=== PATIENT | female | born 1955 | race Caucasian/White ===

== ENCOUNTER → 2019-11-17 12:04 | Outpatient (CLI) | payer OTHER, SELFPAY ==
--- NOTE | ~2019-11-17 | MM_ITS ---
EXAMINATION: MM screening [facility] BI w john HISTORY: Screening mammogram TECHNIQUE: Craniocaudal and mediolateral oblique 3-D tomosynthesis images were obtained and synthetic 2-D images were generated. CAD analysis was submitted and interpreted. COMPARISON: No prior mammogram is available for comparison at this institution. BREAST PARENCHYMAL COMPOSITION: There are scattered areas of fibroglandular density. FINDINGS: There is no evidence of suspicious mass, calcification, or architectural distortion to sugg est malignancy in either breast. There has been no suspicious interval change. IMPRESSION: 1. No mammographic evidence of malignancy. 2. Recommend routine screening mammography in one year. BI-RADS Category 1: Negative Reviewed, dictated and finalized at location A. 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
--- NOTE | ~2019-11-17 | DEXA_ITS ---
Bone Density Report Name: Mary Veronica Age: 64 Sex: Female Ethnicity: White Date of : 1955 Indication: postmenopausal; screening for osteoporosis; parental hip fracture; hysterectomy; rheumatoid arthritis; Referring Provider: KINA CHAO Study: Bone densitometry was performed. Exam Date: November 17, 2019 Accession number: [id number] Bone Density: Region BMD T-score Z-score Classification AP Spine (L1-L4) 1.016 -0.3 1.5 Normal Femoral Neck (Left) 0.843 -0.1 1.4 Normal Total Hip (Left) 1.024 0.7 1.9 Normal Femoral Neck (Right) 0.918 0.6 2.1 Normal Total Hip (Right) 1.017 0.6 1.8 Normal Total Hip Mean 1.021 0.7 1.9 Normal World Health Organization criteria for BMD impression classify patients as: Normal (T-score at or above -1.0), Osteopenia (T-score between -1.0 and -2.5), or Osteoporosis (T-score at or below -2.5). 10-year Fracture Risk: FRAX not reported because: All T-scores for Spine Total, Hip Total, Femoral Neck at or above -1.0 Previous Exams: Region Exam Age BMD T-score BMD Change BMD Change Date g/cm2 vs Baseline vs Previous AP Spine(L1-L4) 11/17/2019 64 1.016 -0.3 -0.023 -0.023 01/21/2006 50 1.040 -0.1 Total Hip(Left) 11/17/2019 64 1.024 0.7 -0.039 -0.039 01/21/2006 50 1.063 1.0 Total Hip(Right) 11/17/2019 64 1.017 0.6 -0.077 -0.077 01/21/2006 50 1.094 1.2 *Denotes significance at 95% confidence level, LSC for AP Spine = 0.022 g/cm2, LSC for Total Hip = 0.027 g/cm2 Clinical Information Provided by Patient: Parent has had a hip fracture Has rheumatoid arthritis Has the following medical conditions: Hysterectomy Patient maximum height was 65.0 Menopause Age: 33 Drinks caffeinated beverages Onset of menses at age 15 Number of children 2 Impression: The patient has normal bone mass. The patient has risk factors, including: parental hip fracture. No significant bone loss was observed. Discussion: BONE DENSITY IS ABOVE THE MINIMUM DESIRABLE LEVEL AT ALL SKELETAL SITES TESTED. This patient?s bone mineral density is above the minimum desirable level (T-score -1.0 or better) at all sites measured. The patient should follow a healthful lifestyle (good nutrition with adequate calcium and vitamin D, and appropriate weight-bearing exercise). Follow-Up: Consider repeating this study in 5 years or sooner if there is some new clinical indication. Re
== END ==
PROVIDERS: Visit Provider Obstetrics & Gynecology
DX: Z12.31 Encounter for screening mammogram for malignant neoplasm of breast (principal); Z78.0 Asymptomatic menopausal state
CPT/HCPCS: 77063; 77067; 77080

== ENCOUNTER → 2020-12-28 16:39 | Outpatient (CLI) | payer MEDICARE, OTHER, SELFPAY ==
--- NOTE | ~2020-12-28 | MM_ITS ---
EXAMINATION: MM screening [facility] BI w john HISTORY: Screening mammogram TECHNIQUE: Craniocaudal and mediolateral oblique 3-D tomosynthesis images were obtained and synthetic 2-D images were generated. CAD analysis was submitted and interpreted. COMPARISON: 11/17/2019, 02/06/2005 bilateral digital screening mammogram examinations BREAST PARENCHYMAL COMPOSITION: The breasts are almost entirely fatty. FINDINGS: History of bilateral breast reduction surgery in 2000. There is focal irregular non circums cribed density in the posterior outer right breast on the cc view. Diagnostic right mammogram is brunilda mmended, with ultrasound if required. Otherwise there is is no evidence of suspicious mass, calcification, or architectural distortion sugg est malignancy in either breast. There has been no other suspicious interval change. IMPRESSION: 1. New focal non circumscribed irregular density at the posterior outer right breast 2. Diagnostic right mammogram is recommended with ultrasound if required. BI-RADS Category 0: Incomplete: Needs additional imaging evaluation. Reviewed, dictated and finalized at location A. IMPRESSION: 1. New focal non circumscribed irregular density at the posterior outer right b reast 2. Diagnostic right mammogram is recommended with ultrasound if required. BI-RADS Category 0: Incomplete: Needs additional imaging evaluation.
== END ==
PROVIDERS: PCP Internal Medicine; Visit Provider Obstetrics & Gynecology
DX: Z12.31 Encounter for screening mammogram for malignant neoplasm of breast (principal); R92.8 Other abnormal and inconclusive findings on diagnostic imaging of breast
CPT/HCPCS: 77063; 77067

== ENCOUNTER → 2021-01-24 08:30 | Outpatient (CLI) | payer MEDICARE, OTHER, SELFPAY ==
--- NOTE | ~2021-01-24 | MMUS_ITS ---
EXAMINATION: MM diagnostic mammo unilat RT, US breast RT limited HISTORY: Follow-up right breast asymmetry TECHNIQUE: Additional 3-D tomosynthesis images of the right breast were performed and synthetic 2-D i mages were generated. CAD analysis was submitted and interpreted. High resolution Limited right breas t ultrasound was performed. COMPARISON: Comparison to multiple prior studies sequentially, with oldest reviewed study dated 11/17. BREAST PARENCHYMAL COMPOSITION: Breast composed of scattered areas of fibroglandular density. FINDINGS: MAMMOGRAPHIC FINDINGS: There are no suspicious masses, calcifications or architectural distortion in the right breast to sug gest malignancy. ULTRASOUND: Limited right breast ultrasound: Normal heterogeneous echotexture without focal solid or cystic mass. IMPRESSION: 1. No evidence for malignancy in the right breast. 2. Routine yearly screening mammogram and regular clinical breast examination are recommended. BI-RADS Category 1: Negative Reviewed, dictated and finalized at location A. IMPRESSION: 1. No evidence for malignancy in the right breast. 2. Routine yearly screening mammogram and regular clinical breast examination a re recommended. BI-RADS Category 1: Negative
== END ==
PROVIDERS: PCP Internal Medicine; Visit Provider Obstetrics & Gynecology
DX: R92.8 Other abnormal and inconclusive findings on diagnostic imaging of breast (principal)
CPT/HCPCS: 76642; 77065

== ENCOUNTER → 2022-01-22 07:12 | Outpatient (CLI) | payer MEDICARE, OTHER, SELFPAY ==
--- NOTE | ~2022-01-22 | MM_ITS ---
EXAMINATION: MM screening [facility] BI w john HISTORY: Screening mammogram TECHNIQUE: Craniocaudal and mediolateral oblique 3-D tomosynthesis images were obtained and synthetic 2-D images were generated. CAD analysis was submitted and interpreted. COMPARISON: 01/24/2021 diagnostic right mammogram and limited right breast ultrasound 12/28/2020, 11/17/2019 bilateral screening mammogram examinations BREAST PARENCHYMAL COMPOSITION: The breasts are almost entirely fatty. FINDINGS: There is no evidence of suspicious mass, calcification, or architectural distortion to sugg est malignancy in either breast. There has been no suspicious interval change. IMPRESSION: 1. No mammographic evidence of malignancy. 2. Recommend routine screening mammography in one year. BI-RADS Category 1: Negative Reviewed, dictated and finalized at location A.
== END ==
PROVIDERS: PCP Internal Medicine; Visit Provider Obstetrics & Gynecology Gynecology
DX: Z12.31 Encounter for screening mammogram for malignant neoplasm of breast (principal)
CPT/HCPCS: 77063; 77067

== ENCOUNTER → 2022-07-12 10:02 | Outpatient (CLI) | payer MEDICARE, OTHER, SELFPAY ==
--- NOTE | ~2022-07-12 | DEXA_ITS ---
Bone Density Report Name: ZEINA NASCIMENTO Age: 67 Sex: Female Ethnicity: White Date of : 1955 Indication: postmenopausal; screening for osteoporosis; parental hip fracture; height loss; prior fracture; hysterectomy; rheumatoid arthritis; Referring Provider: ALMA ROSA, CANDI Blandon Study: Bone densitometry was performed. Exam Date: July 12, 2022 Accession number: [id number] Bone Density: Region BMD T-score Z-score Classification AP Spine (L1-L4) 1.081 0.3 2.2 Normal Femoral Neck (Left) 0.874 0.2 1.9 Normal Total Hip (Left) 0.994 0.4 1.8 Normal Femoral Neck (Right) 0.870 0.2 1.8 Normal Total Hip (Right) 0.964 0.2 1.5 Normal Total Hip Mean 0.979 0.3 1.7 Normal World Health Organization criteria for BMD impression classify patients as: Normal (T-score at or above -1.0), Osteopenia (T-score between -1.0 and -2.5), or Osteoporosis (T-score at or below -2.5). 10-year Fracture Risk: FRAX not reported because: All T-scores for Spine Total, Hip Total, Femoral Neck at or above -1.0 Previous Exams: Region Exam Age BMD T-score BMD Change BMD Change Date g/cm2 vs Baseline vs Previous AP Spine(L1-L4) 07/12/2022 67 1.081 0.3 0.042 0.065* 11/17/2019 64 1.016 -0.3 -0.023 -0.023 01/21/2006 50 1.040 -0.1 Total Hip(Left) 07/12/2022 67 0.994 0.4 -0.068 -0.030* 11/17/2019 64 1.024 0.7 -0.039 -0.039 01/21/2006 50 1.063 1.0 Total Hip(Right) 07/12/2022 67 0.964 0.2 -0.129 -0.052* 11/17/2019 64 1.017 0.6 -0.077 -0.077 01/21/2006 50 1.094 1.2 *Denotes significance at 95% confidence level, LSC for AP Spine = 0.022 g/cm2, LSC for Total Hip = 0.027 g/cm2 Clinical Information Provided by Patient: Has had a low trauma fracture Parent has had a hip fracture Has rheumatoid arthritis Has the following medical conditions: Hysterectomy Patient maximum height was 65.0 Menopause Age: 33 No regular weight bearing exercise Does not regularly consume dairy products Drinks caffeinated beverages Onset of menses at age 15 Number of children 2 Impression: The patient has normal bone mass. The patient has risk factors, including: parental hip fracture, previous fracture. The BMD for the Total Hip(Left) decreased, changing by -0.030 since the last DXA exam. The BMD for the Total Hip(Right) decreased, changing by -0.052 since the last
== END ==
PROVIDERS: PCP Internal Medicine; Visit Provider Internal Medicine
DX: M81.0 Age-related osteoporosis without current pathological fracture (principal)
CPT/HCPCS: 77080

== ENCOUNTER → 2022-10-25 11:35 | Outpatient (CLI) | payer MEDICARE, OTHER, SELFPAY ==
--- NOTE | ~2022-10-25 | XR_ITS ---
EXAMINATION:XR_[id number]_CR DATE: 10/25/2022 12:55 INDICATION: Neck pain TECHNIQUE: AP, lateral, lateral swimmers and odontoid views of the cervical spine are provided. COMPARISON: None FINDINGS: There are 3 mm of anterolisthesis of C4 on C5. There is 1 mm of retrolisthesis of C5 on C6. The odontoid process is intact. No fracture is identified. The vertebral body heights are normal. Th ere is moderate loss of intervertebral disc space height at C5-6 and C6-7 and mild loss of disc space height at C4-5. There is multilevel moderate to severe facet and uncovertebral joint osteoarthritis. Prevertebral soft tissues are normal. Small degenerative osteophytes project from the anterior endpl ates of multiple vertebral bodies. IMPRESSION: 1. Moderate cervical spondylosis without acute findings. Reviewed, dictated and finalized at location B. [employer]
== END ==
PROVIDERS: PCP Internal Medicine; Visit Provider Internal Medicine Rheumatology
DX: M47.812 Spondylosis without myelopathy or radiculopathy, cervical region (principal)
CPT/HCPCS: 72040

== ENCOUNTER → 2023-02-28 13:45 | Outpatient (CLI) | payer MEDICARE, OTHER, SELFPAY ==
--- NOTE | ~2023-02-28 | MM_ITS ---
EXAMINATION: MM screening [facility] BI w john HISTORY: Screening TECHNIQUE: Craniocaudal and mediolateral oblique 3-D tomosynthesis images were obtained and synthetic 2-D images were generated. CAD analysis was submitted and interpreted. COMPARISON: Comparison to multiple prior studies sequentially, with oldest reviewed study dated 11/17. BREAST PARENCHYMAL COMPOSITION: There are scattered areas of fibroglandular density. FINDINGS: There is no evidence of suspicious mass, calcification, or architectural distortion to sugg est malignancy in either breast. There has been no suspicious interval change. IMPRESSION: 1. No mammographic evidence of malignancy. 2. Recommend routine screening mammography in one year. BI-RADS Category 1: Negative Reviewed, dictated and finalized at location A.
== END ==
PROVIDERS: PCP Internal Medicine; Visit Provider Internal Medicine
DX: Z12.31 Encounter for screening mammogram for malignant neoplasm of breast (principal)
CPT/HCPCS: 77063; 77067

== ENCOUNTER 2023-05-21 10:45 | Outpatient (CLI) | payer MEDICARE, OTHER, SELFPAY | END 2023-05-21 10:46 | disposition home or self-care (01) | PROVIDERS: PCP Internal Medicine; Visit Provider Student in an Organized Health Care Education/Training Program | DX: D64.9 Anemia, unspecified (principal) | CPT/HCPCS: 36415; 82728 ==

== ENCOUNTER → 2023-08-01 07:21 | Outpatient (CLI) | payer MEDICARE, OTHER, SELFPAY ==
--- NOTE | ~2023-08-01 | XR_ITS ---
EXAMINATION: XR hip RT min 2V DATE: 08/01/2023 07:55 INDICATION: Right hip pain TECHNIQUE: Two views of right hip were obtained. COMPARISON: None. FINDINGS: Bone alignment is normal. There is no fracture. There is mild osteoarthritis of the hip. Th e soft tissues are unremarkable. IMPRESSION: 1. Mild osteoarthritis without acute osseous abnormality. Reviewed, dictated and finalized at location B. 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
== END ==
DX: M16.11 Unilateral primary osteoarthritis, right hip (principal)
CPT/HCPCS: 73502

== ENCOUNTER 2023-09-12 02:04 | Day surgery (SDC) | payer MEDICARE, OTHER, SELFPAY ==
[2023-08-27 08:35] VITALS: BMI 39.0
--- NOTE | 2023-09-10 08:34 | SUR.PREOP ---
Patient called regarding upcoming procedure. Reviewed preop instructions, appointment times, and procedure prep.
--- NOTE | 2023-09-11 09:10 | WPDANESEPPF ---
Anes - Initial Pre Proc Eval Procedure: Operation Date: 09/12/23 11:30 Proposed Procedures p Colonoscopy - Keshav Nichols MD Date/Time: 09/11/23 09:10 Surgeon: Keshav Nichols MD Pre Op Diagnosis: history of colon polyps Patient Data Age: 68 Gender: F Height: 1.6 m Weight: 100 kg Allergies Allergy/AdvReac Type Severity Reaction Status Date / Time terbinafine Allergy Intermediate Rash Verified 09/12/23 10:40 griseofulvin Allergy Unknown Rash Verified 09/12/23 10:40 Sulfa (Sulfonamide Allergy Unknown unknown Verified 09/12/23 10:40 Antibiotics) Home Medications Medication Instructions Recorded Confirmed Type allopurinol 300 mg tablet 300 mg PO DAILY 05/31/21 09/12/23 History carboxymethyl 0.5 %-glycerin 1 1 drp EACH EYE QID 05/31/21 09/12/23 History %-polysorb 80 0.5 %-PF eye dropperette (Refresh Optive Jalil-3 (PF)) furosemide 40 mg tablet 40 mg PO DAILY PRN Edema 05/31/21 09/12/23 History hydrochlorothiazide 25 mg tablet 25 mg PO BID 05/31/21 09/12/23 History hydroxychloroquine 200 mg tablet 200 mg PO BID 05/31/21 09/12/23 History melatonin 10 mg capsule 10 mg PO QHS PRN Insomnia 05/31/21 09/12/23 History metoprolol tartrate 100 mg tablet 100 mg PO BID 05/31/21 09/12/23 History metronidazole 1 % topical gel 1 applic topical DAILY 05/31/21 09/12/23 History multivitamin 1 tablet PO DAILY 05/31/21 09/12/23 History omega-3 fatty acids 1,000 mg 1,000 mg PO BID 05/31/21 09/12/23 History capsule (Fish Oil Concentrate) potassium chloride 20 mEq 40 meq PO BID 05/31/21 09/12/23 History tablet,extended release betamethasone dipropionate 0.05 % 1 applic topical DAILY PRN Rash 03/13/22 09/12/23 History topical ointment ropinirole 4 mg tablet See Rx Instructions .Route 04/15/23 09/12/23 Rx .COMPLEX #90 tabs ropinirole 5 mg tablet See Rx Instructions .Route 04/15/23 09/12/23 Rx .COMPLEX #90 tabs folic acid 1 mg tablet 1 mg PO DAILY 05/21/23 09/12/23 History methotrexate sodium 2.5 mg tablet 15 mg PO WEEKLY 05/21/23 09/12/23 History pilocarpine HCl 5 mg tablet 5 mg PO TID 05/21/23 09/12/23 History pregabalin 75 mg capsule 75 mg PO QHS #30 caps 07/04/23 09/12/23 Rx Patient hx anesthesia problems: none Family hx anesthesia problems: none Results Review: All pre-operative results and documents have been reviewed as part of the pre-operative evaluation. [facility] Past Medical History Medical History Arthritis Gout Hypertension Migraine Rheumatoid arthritis Surgical History Surgical History H/O hysterectomy for benign disease Hx of appendectomy Hx of breast reduction, elective Hx of cholecystectomy Family History Family History Other Colon cancer Social History Social History Social History: never smoker Smoking status: Never smoker Alcohol intake: current Drinks per week: 2 Alcohol use details: occasionally Substance use: never Substance use type: does not use Lack of Transportation: No Lack of Food: Never True Current Housing: I Have Housing Concerned About Future Housing: No Difficulty Paying Gas/Electric Bills: No Difficulty Paying for Meds: No Currently Unemployed: No Education: Bachelor's Degree Difficulty w/ Childcare or Family Care: No Living arrangements: alone Occupation/Education: occupation Gender identity (if verbalized by the patient): Female Spiritual care concerns: No Anes - Eval Final PreProcedure Day of Procedure 09/11/23 09:10 Patient weight: obese Heart: regular rate and rhythm Lungs: clear to auscultation Airway: Mallampati scale class II Neurological: alert and oriented Last oral intake: >/= 8 hours ASA classification: III Emergent: no Anesthetic plan: proceed Anesthesia type and m
[2023-09-12 10:41] VITALS: BP 128/60; PULSE 69; RESP 18; TEMP 36.1; O2SAT 98; BMI 39.2
--- NOTE | 2023-09-12 10:42 | PM.HPGS ---
History of Present Illness History of Present Illness Consent: Risks, benefits, and alternatives have been discussed and questions answered. Patient agrees to proceed with procedure. Chief complaint: history of colon polyps Narrative: Mary Veronica is a 68 year old female Referred for colon cancer screening. She has history of polyps. Her last colonoscopy was 5 years ago. Review of Systems Review of Systems: All systems reviewed & are unremarkable except as noted in HPI and below PMFSH Past Medical History Medical History Arthritis Gout Hypertension Migraine Rheumatoid arthritis Surgical History Surgical History H/O hysterectomy for benign disease Hx of appendectomy Hx of breast reduction, elective Hx of cholecystectomy Family History Family History Other Colon cancer Social History Social History Social History: never smoker Smoking status: Never smoker Alcohol intake: current Drinks per week: 2 Alcohol use details: occasionally Substance use: never Substance use type: does not use Lack of Transportation: No Lack of Food: Never True Current Housing: I Have Housing Concerned About Future Housing: No Difficulty Paying Gas/Electric Bills: No Difficulty Paying for Meds: No Currently Unemployed: No Education: Bachelor's Degree Difficulty w/ Childcare or Family Care: No Living arrangements: alone Occupation/Education: occupation Gender identity (if verbalized by the patient): Female Spiritual care concerns: No Meds Home Medications and Allergies Home Medications Medication Instructions Recorded Confirmed Type allopurinol 300 mg tablet 300 mg PO DAILY 05/31/21 09/12/23 History carboxymethyl 0.5 %-glycerin 1 1 drp EACH EYE QID 05/31/21 09/12/23 History %-polysorb 80 0.5 %-PF eye dropperette (Refresh Optive Jalil-3 (PF)) furosemide 40 mg tablet 40 mg PO DAILY PRN Edema 05/31/21 09/12/23 History hydrochlorothiazide 25 mg tablet 25 mg PO BID 05/31/21 09/12/23 History hydroxychloroquine 200 mg tablet 200 mg PO BID 05/31/21 09/12/23 History melatonin 10 mg capsule 10 mg PO QHS PRN Insomnia 05/31/21 09/12/23 History metoprolol tartrate 100 mg tablet 100 mg PO BID 05/31/21 09/12/23 History metronidazole 1 % topical gel 1 applic topical DAILY 05/31/21 09/12/23 History multivitamin 1 tablet PO DAILY 05/31/21 09/12/23 History omega-3 fatty acids 1,000 mg 1,000 mg PO BID 05/31/21 09/12/23 History capsule (Fish Oil Concentrate) potassium chloride 20 mEq 40 meq PO BID 05/31/21 09/12/23 History tablet,extended release betamethasone dipropionate 0.05 % 1 applic topical DAILY PRN Rash 03/13/22 09/12/23 History topical ointment ropinirole 4 mg tablet See Rx Instructions .Route 04/15/23 09/12/23 Rx .COMPLEX #90 tabs ropinirole 5 mg tablet See Rx Instructions .Route 04/15/23 09/12/23 Rx .COMPLEX #90 tabs folic acid 1 mg tablet 1 mg PO DAILY 05/21/23 09/12/23 History methotrexate sodium 2.5 mg tablet 15 mg PO WEEKLY 05/21/23 09/12/23 History pilocarpine HCl 5 mg tablet 5 mg PO TID 05/21/23 09/12/23 History pregabalin 75 mg capsule 75 mg PO QHS #30 caps 07/04/23 09/12/23 Rx Allergies Allergy/AdvReac Type Severity Reaction Status Date / Time terbinafine Allergy Intermediate Rash Verified 09/12/23 10:40 griseofulvin Allergy Unknown Rash Verified 09/12/23 10:40 Sulfa (Sulfonamide Allergy Unknown unknown Verified 09/12/23 10:40 Antibiotics) Exam Resp: Auscultation: clear to auscultation bilaterally Cardio: Rate: regular rate Rhythm: regular rhythm GI: GI Palp: Yes Soft to palpation and No Tenderness to palpation present (GI) Assessment and Plan Assessment and plan (1) Colon cancer screening: Code(s): Z12.11 - [place]
[2023-09-12] MEDS: LACTATED RINGERS 1,000 ML 150 ML IV CONT (11:00)
[2023-09-12 11:35] VITALS: BP 101/53; PULSE 88; RESP 23; O2SAT 99
[2023-09-12 11:45] VITALS: BP 99/61; PULSE 101; RESP 20; O2SAT 100
[2023-09-12 11:55] VITALS: BP 140/75; PULSE 81; RESP 20; O2SAT 100
== END 2023-09-12 12:16 | disposition home or self-care (01) ==
PROVIDERS: PCP Internal Medicine; Visit Provider Internal Medicine Gastroenterology
PROC: 0DJD8ZZ Inspection of Lower Intestinal Tract, Via Natural or Artificial Opening Endoscopic (ICD-10-PCS; CPT 45378; principal; 2023-09-12 11:30)
DX: Z12.11 Encounter for screening for malignant neoplasm of colon (principal); D12.3 Benign neoplasm of transverse colon; I10 Essential (primary) hypertension; M06.9 Rheumatoid arthritis, unspecified; M10.9 Gout, unspecified; Z79.631 Long term (current) use of antimetabolite agent; E66.9 Obesity, unspecified; Z68.39 Body mass index [BMI] 39.0-39.9, adult
CPT/HCPCS: 45385; 88305; J2704; J7120

== ENCOUNTER 2024-09-02 17:06 | Emergency (ER) | payer MEDICARE, OTHER, SELFPAY ==
--- NOTE | ~2024-09-02 | CT_ITS ---
EXAMINATION: CT brain wo con DATE: 09/02/2024 20:03 INDICATION: Head injury. TECHNIQUE: Computed tomography (CT) of the head was performed without intravenous contrast. The mA wa s adjusted according to patient size. Iterative reconstruction technique was employed. The dose-lengt h product was 605.33 mGy-cm. COMPARISON: None FINDINGS: There is no intracranial hemorrhage, acute infarction, or abnormal intracranial mass lesion . There are scattered areas of low attenuation in the cerebral white matter, which is within normal l imits for the patient's age. The ventricles are normal in size. There is mild mucosal thickening in t he ethmoid sinuses. The mastoid air cells are normal. There are likely changes of ocular lens replace ment surgeries. IMPRESSION: 1. Normal aging brain. Reviewed, dictated and finalized at location A. T PLANNER IMPRESSION: 1. Normal aging brain.
--- NOTE | ~2024-09-02 | XR_ITS ---
EXAMINATION: XR pelvis 1-2V DATE: 09/02/2024 20:14 INDICATION: Fall. TECHNIQUE: An anteroposterior view of the pelvis was obtained. COMPARISON: Right hip radiographs 08/01/2023 FINDINGS: There is lumbar dextrocurvature and moderate spondylosis. No fracture. There is mild osteoa rthritis of the hips. IMPRESSION: 1. Mild osteoarthritis of the hips. Reviewed, dictated and finalized at location A. THERAPIST
--- NOTE | ~2024-09-02 | XR_ITS ---
EXAMINATION: XR knee RT 3V DATE: 09/02/2024 20:14 INDICATION: Fall. TECHNIQUE: 3 views of right knee were obtained. COMPARISON: None. FINDINGS: Bone alignment is normal. No fracture. There is moderate osteoarthritis of medial and later al compartments and mild osteoarthritis of patellofemoral compartment. No knee joint effusion. IMPRESSION: 1. Moderate right knee osteoarthritis. Reviewed, dictated and finalized at location A. [employer] SUPERVISOR
--- OUTSIDE RECORDS SUMMARY | 2024-09-02 17:09 | XMS_ITS | Data Portability ---
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 Plan of Treatment Reminders Order Date Submit Date Provider Last Modified By Organization Details Last Modified Time Details Appointments None recorded. Lab vitamin D, 25-hydrox y, total, serum 023 023 [id number] [facility], [address] [place], [address], 3 16:29:50 CBC w/ auto diff 023 023 [id number] [facility], [address] [place], [address], 3 16:29:49 CMP, serum or plasma 023 023 [facility], [address] [place], [address], 3 16:29:49 lipid panel, serum 023 023 [id number] [facility], [address] [place], [address], 3 16:29:50 cmp, whole blood + christa 023 023 [email or web address] [facility], [address] [place], [address], 3 16:29:50 T4, free, serum 023 023 [email or web address] [facility], [address] [place], [address], 3 16:29:50 TSH, serum or plasma 023 023 [facility], [address] [place], [address], 3 16:29:50 vitamin D, 25-hydrox y, total, serum [id number] [place] [address] - Outpatient Lab, [address] [place], [address], 3 17:48:50 CBC w/ auto diff 023 [facility] - Outpatient Lab, [address] [place], [address], 3 10:37:35 CMP, serum or plasma [facility] Outpatient Lab, [address] [place], [address], 3 11:06:38 lipid panel, serum [facility] Outpatient Lab, [address] [place], [address], 3 11:06:42 TSH, serum or plasma [facility] Outpatient Lab, [address] [place], [address], 3 10:59:59 T4, free, serum 023 [facility] Outpatient Lab, [address] [place], [address], 3 10:46:14 CBC w/ auto diff [facility] Outpatient Lab, [address] [place], [address], 4 12:00:16 CMP, serum or plasma [facility] Outpatient Lab, [address] [place], [address], 4 12:09:18 lipid panel, serum [facility] Outpatient Lab, [address] [place], [address], 4 12:09:23 TSH, serum or plasma [facility] Outpatient Lab, [address] [place], [address], 4 12:37:33 T4, free, serum [facility] Outpatient Lab, [address] [place], [address], 4 12:20:16 CBC w/ auto diff [id number] [place] [address] Outpatient Lab, [address] [place], [address], 4 16:52:03 CMP, serum or plasma [id number] [facility] Outpatient Lab, [address] [place], [address], 4 16:52:04 PTH (parathyr oid hormone), intact, serum or plasma [facility] Outpatient Lab, [address] [place], [address], 4 16:52:04 phosphoru s, serum or plasma [id number] [facility] [place] - Outpatient Lab, [address] [place], [address], 16:52:04 vitamin D, 25-hydrox y, total, serum [id number] [facility] [place] - Outpatient Lab, [address] [place], [address], 16:52:04 Referral None recorded. Procedures None recorded. Surgeries None recorded. Imaging None recorded. Medication Orders None recorded. Patient TargetsNo targets recorded. Patient Instructions Encounter Date Encounter Id Patient Instructions Last Modified By Organization Details Last Modified Time 12/18/2022 [id number] Follow-up hypertension-rheumato id arthritis -restless leg syndrome -cervical radicular radiculopathy- obesity. Clinically stable otherwise. Is in need of blood work consisting of CBC, CMP, lipid, thyroid and vitamin-D level. Not due for colonoscopy or bone density scan. Is due for mammogram. Will continue on current Rx and follow-up in six months Mammogram [email or web address] Not available 12/18/2022 10:59:46 06/25/2023 [id number] dementia rating scale-2* [email or web address] Not available 06/25/2023 11:04:20 alcohol misuse* [email or web address] Not available 06/25/2023 11:04:20 depression screening* [email or web address] Not avai jesse 06/25/2023 11:04:20 Timed Up and Go test (TUG)* [email or web address] Not available 06/25/2023 11:04:20 multi-dimensiona health assessment questionnaire* [email or web address] Not available 06/25/2023 11:04:20 Personalized a lt Plan and Screening Recommendations Advance Directives - Do you have one? Yes Advance Directives - Do we have your advance directive on file in your health record? Yes Primary Prevention/Interventi on (prevents or decreases the chance of common diseases from occurring) Smoking Risk: Non Smoker Alcohol Misuse Screening: Negative Weight: Appropriate Overweigh t continue your current weight loss efforts try to lose 5% of your body weight try to lose 10% of your body weight Physical activity: Nutrition: Good Average Fall Risk (screened today): Low Vaccines Pneumococcal: Ordered Recommended today Recommended today, but you have declined No further needed Influenza: Chronic Disease Risks Stroke: Low Risk Intermediate Risk I have no recommendations Activ e diagnosis, Continue current treatment plan Heart Attack: Low risk I have no recommendations Clogging of the Arteries: Low risk I have no recommendations Diabetes: Low Risk I have no recommendations Secondary Prevention/Interventi on (detects treatable diseases before they may cause symptoms, disability, or ) Breast Cancer Screening with mammogram: Cervical/Uterine/Ovar jagdish Cancer Screening: Osteoporosis Screening: Date Screening Last Performed: Colon Cancer Screening: Colonoscopy Date Screening Last Performed: __2018__ Eye Disease Screening: Dementia Risk: Low I have no recommendations Depression Screening: Negative [email or web address] Not available 06/25/2023 10:56:18 Adult health examination risk assessment stable. Follow-up for hypertension-GERD -rheumatoid arthritis -obesity all clinically stable. Will check blood work in the form of CBC, CMP, lipid, thyroid and vitamin-D level. Continue on current Rx up-to-date on immunizations. FDA recommendations of a influenza, RSV, COVID, pneumococcal immunizations strongly advised. Follow-up in six months Portions of the record may have been created with voice recognition software. Occasional wrong-word or ? [id number]-p-[id number]? substitutions may have occurred due to the inherent limitations of voice recognition software. Read the chart carefully and recognize, using context, where substitutions have occurred. [email or web address] Not available 06/25/2023 11:03:55 12/24/2023 [id number] Follow-up [id number] umatoid arthritis and obesity class two. All clinically stable at this juncture. Will check blood work consisting of CBC, CMP, lipid, thyroid. Continue on current medications. See no contraindications for upcoming hammer toe surgery with Dr. Tuttle. Follow-up in six months Next Appt: 6 Months Approximate Date: 06/21/2024 Portions of the record may have been created with voice recognition software. Occasional wrong-word or ? [id number]? substitutions may have occurred due to the inherent limitations of voice recognition software. Read the chart carefully and recognize, using context, where substitutions have occurred. [email or web address] Not available 12/24/2023 10:51:41 07/05/2024 [id number] dementia rating scale-2* Not available 07/05/2024 14:54:53 alcohol misuse* [email or web address] Not available 07/05/2024 14:54:53 depression screening* [email or web address] Not hardeep molina 07/05/2024 14:54:54 Timed Up and Go test (TUG)* [email or web address] Not available 07/05/2024 14:54:53 multi-dimensiona l health assessment questionnaire* [email or web address] Not available 07/05/2024 14:54:54 Personalized Hea lt Plan and Screening Recommendations Advance Directives - Do you have one? Yes Advance Directives - Do we have your advance directive on file in your health record? Yes Primary Prevention/Interventi on (prevents or decreases the chance of common diseases from occurring) Smoking Risk: Non Smoker Alcohol Misuse Screening: Negative Weight: Appropriate Overweigh t continue your current weight loss efforts try to lose 5% of your body weight try to lose 10% of your body weight Physical activity: Nutrition: Good Average Fall Risk (screened today): Low Vaccines Pneumococcal: Ordered Recommended today Recommended today, but you have declined No further needed Influenza: Ordered Recommended today Chronic Disease Risks Stroke: Low Risk Intermediate Risk I have no recommendations Activ e diagnosis, Continue current treatment plan Heart Attack: Low risk Intermediate Risk I have no recommendations Activ e diagnosis, Continue current treatment plan Clogging of the Arteries: Low risk I have no recommendations Diabetes: Low Risk I have no recommendations Secondary Prevention/Interventi on (detects treatable diseases before they may cause symptoms, disability, or ) Breast Cancer Screening with mammogram: Cervical/Uterine/Ovar jagdish Cancer Screening: Osteoporosis Screening: Date Screening Last Performed: Colon Cancer Screening: Colonoscopy Date Screening Last Performed: ____ Eye Disease Screening: Dementia Risk: Low I have no recommendations Depression Screening: Negative [email or web address] Not available 07/05/2024 14:45:55 [facility] risk assessment stable. Follow-up hypertension, GERD, rheumatoid arthritis, obesity and restless leg syndrome all clinically stable. Had blood work performed back in April which looked adequate although the creatinine was slightly elevated 1.14. Otherwise has been doing well. Will check blood work consisting of CBC, CMP, PTH level, phosphorus and vitamin-D. Continue on current Rx follow-up in four months. Follow Up: 4 Months Approximate Date: 11/02/2024 Portions of the record may have been created with voice recognition software. Occasional wrong-word or ? [id number]-j-[id number]? substitutions may have occurred due to the inherent limitations of voice recognition software. Read the chart carefully and recognize, using context, where substitutions have occurred. Not available 07/05/2024 14:54:28 Reason for Referral None Reported. Results Created Date Observation Date Name Description Value Unit Range Abnormal Flag Note LastModifiedBy Organization Detail LastModifiedTime 12/27/1912/26/2022 CBC/C OMPLE TE BLD COUNT W/DIF F white blood cells 5.0 x10'3 /uL 4.2-10 .8 Not Available [facility] (Lab) [address] [place], [address], 12/26/2022 12:01:01 12/27/19 23 12/26/2022 CBC/C OMPLE TE BLD COUNT W/DIF F red blood cells 4.31 x10'6 /uL 3.80-5 .20 Not Available [facility] (Lab) [address] [place], [address], 12/26/2022 12:01:01 12/27/19 23 12/26/2022 CBC/C OMPLE TE BLD COUNT W/DIF F hemoglobin 13.7 g/dL 12.0-1 5.6 Not Available [facility] (Lab) [address] [place], [address], 12/26/2022 12:01:01 12/27/19 23 12/26/2022 CBC/C OMPLE TE BLD COUNT W/DIF F hematocrit 41.1 % 35.7-4 5.7 Not Available [facility] (Lab) [address] [place], [address], 12/26/2022 12:01:01 12/27/19 23 12/26/2022 CBC/C OMPLE TE BLD COUNT W/DIF F mean red cell volume 95.4 fL 82.0-9 9.0 Not Available [facility] (Lab) [address] [place], [address], 12/26/2022 12:01:01 12/27/19 23 12/26/2022 CBC/C OMPLE TE BLD COUNT W/DIF F mean red cell hemoglobin 31.8 pg 27.0-3 3.0 Not Available [facility] (Lab) [address] [place], [address], 12/26/2022 12:01:01 12/27/19 23 12/26/2022 CBC/C OMPLE TE BLD COUNT W/DIF F mean RBC HGB concentratio n 33.3 g/dL 31.0-3 6.0 Not Available [facility] (Lab) [address] [place], [address], 12/26/2022 12:01:01 12/27/19 23 12/26/2022 CBC/C OMPLE TE BLD COUNT W/DIF F red cell distribution width 14.3 % 11.8-1 5.5 Not Available [facility] (Lab) [address] [place], [address], 12/26/2022 12:01:01 12/27/19 23 12/26/2022 CBC/C OMPLE TE BLD COUNT W/DIF F platelets 243 x10'3 /uL 150-40 0 Not Available [facility] (Lab) [address] [place], [address], 12/26/2022 12:01:01 12/27/19 23 12/26/2022 CBC/C OMPLE TE BLD COUNT W/DIF F mean platelet volume 10.1 fL 9.0-12 .4 Not Available [facility] (Lab) [address] [place], [address], 12/26/2022 12:01:01 12/27/19 23 12/26/2022 CBC/C OMPLE TE BLD COUNT W/DIF F neutrophils 55.6 % 39.0-7 2.0 Not Available [facility] (Lab) [address] [place], [address], 12/26/2022 12:01:01 12/27/19 23 12/26/2022 CBC/C OMPLE TE BLD COUNT W/DIF F lymphocytes 22.5 % 16.0-4 7.0 Not Available [facility] (Lab) [address] [place], [address], 12/26/2022 12:01:01 12/27/1912/26/2022 CBC/C OMPLE TE BLD COUNT W/DIF F monocytes 13.3 % 5.0-12 .0 high Not Available [facility] (Lab) [address] [place], [address], 12/26/2022 12:01:01 12/27/19 23 12/26/2022 CBC/C OMPLE TE BLD COUNT W/DIF F eosinophils 6.6 % 1.0-7. 0 Not Available [facility] (Lab) [address] [place], [address], 12/26/2022 12:01:01 12/27/1912/26/2022 CBC/C OMPLE TE BLD COUNT W/DIF F basophils 1.6 % 0.0-2. 0 Not Available [facility] (Lab) [address] [place], [address], 12/26/2022 12:01:01 12/27/1912/26/2022 CBC/C OMPLE TE BLD COUNT W/DIF F immature granulocytes 0.4 % 0.00-0 .50 Not Available [facility] (Lab) [address] [place], [address], 12/26/2022 12:01:01 12/27/19 23 12/26/2022 CBC/C OMPLE TE BLD COUNT W/DIF F neutrophils, absolute count 2.79 x10'3 /uL 1.5-8. 0 Not Available [facility] (Lab) [address] [place], [address], 12/26/2022 12:01:01 12/27/19 23 12/26/2022 CBC/C OMPLE TE BLD COUNT W/DIF F lymphocytes, absolute count 1.13 x10'3 /uL 1.07-3 .43 Not Available [facility] (Lab) [address] [place], [address], 12/26/2022 12:01:01 12/27/19 23 12/26/2022 CBC/C OMPLE TE BLD COUNT W/DIF F monocytes, absolute count 0.67 x10'3 /uL 0.29-0 .99 Not Available [facility] (Lab) [address] [place], [address], 12/26/2022 12:01:01 12/27/19 23 12/26/2022 CBC/C OMPLE TE BLD COUNT W/DIF F eosinophils, absolute count 0.33 x10'3 /uL 0.02-0 .53 Not Available [facility] (Lab) [address] [place], [address], 12/26/2022 12:01:01 12/27/19 23 12/26/2022 CBC/C OMPLE TE BLD COUNT W/DIF F basophils, absolute count 0.08 x10'3 /uL 0.01-0 .08 Not Available [facility] (Lab) [address] [place], [address], 12/26/2022 12:01:01 12/27/19 23 12/26/2022 CBC/C OMPLE TE BLD COUNT W/DIF F immature granulocytes ,absolute 0.02 x10'3 /uL 0.00-0 .05 Not Available [facility] (Lab) [address] [place], [address], 12/26/2022 12:01:01 12/27/19 23 12/26/2022 CBC/C OMPLE TE BLD COUNT W/DIF F nucleated red blood cells 0.0 % -0 Not Available [facility] (Lab) [address] [place], [address], 12/26/2022 12:01:01 12/27/19 23 12/26/2022 CBC/C OMPLE TE BLD COUNT W/DIF F NRBC# 0.00 x10'3 /uL Not Available [facility] (Lab) [address] [place], [address], 12/26/2022 12:01:01 12/27/19 23 12/26/2022 VITAM IN D 25-HY DROXY [id number] 44.8 NG/mL 30-100 Vitam in D Statu s: Defic ient: <20 ng/mL Insuf ficie nt: 20-29 ng/mL Suffi cient : 30-10 0 ng/mL Not Available [facility] (Lab) [address] [place], [address], 12/26/2022 12:08:37 12/27/19 23 12/26/2022 T4 FREE free T4 1.04 NG/dL 0.78-2 .19 Not Available [facility] (Lab) [address] [place], [address], 12/26/2022 12:13:01 12/27/19 23 12/26/2022 COMPR EHENS FREDERIC METAB OLIC PANEL sodium 139 mmol/ L 137-14 5 Not Available [facility] (Lab) [address] [place], [address], 12/26/2022 12:35:52 12/27/19 23 12/26/2022 COMPR EHENS FREDERIC METAB OLIC PANEL potassium 4.0 mmol/ L 3.5-5. 1 Not Available [facility] (Lab) [address] [place], [address], 12/26/2022 12:35:52 12/27/19 23 12/26/2022 COMPR EHENS FREDERIC METAB OLIC PANEL chloride 103 mmol/ L 98-107 Not Available [facility] (Lab) [address] [place], [address], 12/26/2022 12:35:52 12/27/19 23 12/26/2022 COMPR EHENS FREDERIC METAB OLIC PANEL carbon dioxide 30 mmol/ L 22-30 Not Available [facility] (Lab) [address] [place], [address], 12/26/2022 12:35:52 12/27/19 23 12/26/2022 COMPR EHENS FREDERIC METAB OLIC PANEL anion gap 10.0 mmol/ L 14-22 low Not Available [facility] (Lab) [address] [place], [address], 12/26/2022 12:35:52 12/27/19 23 12/26/2022 COMPR EHENS FREDERIC METAB OLIC PANEL glucose 105 mg/dL 70-99 high Not Available [facility] (Lab) [address] [place], [address], 12/26/2022 12:35:52 12/27/19 23 12/26/2022 COMPR EHENS FREDERIC METAB OLIC PANEL BUN 21 mg/dL 8-19 high Not Available [facility] (Lab) [address] [place], [address], 12/26/2022 12:35:52 12/27/19 23 12/26/2022 COMPR EHENS FREDERIC METAB OLIC PANEL creatinine 1.08 mg/dL 0.66-1 .25 Not Available [facility] (Lab) [address] [place], [address], 12/26/2022 12:35:52 12/27/19 23 12/26/2022 COMPR EHENS FREDERIC METAB OLIC PANEL GFR 51 Refer ence Range : [place] ge GFR Healt hy Adult : >60 mL/mi n/1.7 3 m2 Chron ic Kidne y Disea se: 15-60 mL/mi n/1.7 3 m2 Kidne y Failu re: <15/m L/min /1.73 m2 www.n iddk. nih.g ov The MDRD study equat ion has not been valid ated in child [place] <18 years of age; pregn ant women ; the elder ly >85 years of age; or in some racia l or ethni c subgr oups, such as Hispa nics. Outsi de the valid ated margarita eters , estim ated GFR is less accur ate, requi ring clini shahriar judgm ent on a case- by-ca se basis . Clini shahriar inter preta tion for other races and ages must be made by the clini verónica. The MDRD study equat ion has not been valid ated for the evalu ation of serum creat inine relat ed to nutri clark l statu s or medic ation usage . For perso ns <18 years of age, a pedia tric GFR calcu lator is avail able on the [facility] websi te: https ://mansoor kellogg.jackie easley/chung lennoness jean-pierreal s/kdo qi/gf r_cal culat or Not Available [facility] (Lab) [address] [place], [address], 12/26/2022 12:35:52 12/27/1912/26/2022 COMPR EHENS FREDERIC METAB OLIC PANEL alkaline phosphatase 80 U/L 38-126 Not Available [facility] (Lab) [address] [place], [address], 12/26/2022 12:35:52 12/27/1912/26/2022 COMPR EHENS FREDERIC METAB OLIC PANEL alanine aminotransfe rase 31 U/L 0-35 Not Available [facility] (Lab) [address] [place], [address], 12/26/2022 12:35:52 12/27/19 23 12/26/2022 COMPR EHENS FREDERIC METAB OLIC PANEL aspartate aminotransfe rase 39 U/L 15-37 high Not Available [facility] (Lab) [address] [place], [address], 12/26/2022 12:35:52 12/27/19 23 12/26/2022 COMPR EHENS FREDERIC METAB OLIC PANEL bilirubin, total 0.60 mg/dL 0.20-1 .30 Not Available [facility] (Lab) [address] [place], [address], 12/26/2022 12:35:52 12/27/19 23 12/26/2022 COMPR EHENS FREDERIC METAB OLIC PANEL calcium 9.6 mg/dL 8.4-10 .2 Not Available [facility] (Lab) [address] [place], [address], 12/26/2022 12:35:52 12/27/19 23 12/26/2022 COMPR EHENS FREDERIC METAB OLIC PANEL total protein 6.5 g/dL 6.3-8. 2 Not Available [facility] (Lab) [address] [place], [address], 12/26/2022 12:35:52 12/27/19 23 12/26/2022 COMPR EHENS FREDERIC METAB OLIC PANEL albumin 4.0 g/dL 3.0-4. 4 Not Available [facility] (Lab) [address] [place], [address], 12/26/2022 12:35:52 12/27/19 23 12/26/2022 COMPR EHENS FREDERIC METAB OLIC PANEL globulin 2.5 g/dL 2.6-4. 2 low Not Available [facility] (Lab) [address] [place], [address], 12/26/2022 12:35:52 12/27/19 23 12/26/2022 COMPR EHENS FREDERIC METAB OLIC PANEL A/G ratio 1.6 ratio 1.0-2. 0 Not Available [facility] (Lab) [address] [place], [address], 12/26/2022 12:35:52 12/27/19 23 12/26/2022 LIPID PANEL cholesterol 167 mg/dL 140-19 9 NIH MILY NSUS RECOM MENDA TION FOR AUGUSTINA STERO L: ADULT CHILD LOW RISK: <200 <170 BORDE RLINE : <200- 239 ----- HIGH RISK: >240 >200 Not Available [facility] (Lab) [address] [place] [address], [address], 12/26/2022 12:35:58 12/27/19 23 12/26/2022 LIPID PANEL triglyceride s 77 mg/dL 0-150 NIH MILY NSUS REPOR T RECOM MENDA TION FOR TRIGL YCERI PILI: ADULT CHILD LOW RISK: <150 ----- BODER LINE: 150-1 99 ----- HIGH RISK: >200 ----- Not Available [facility] (Lab) [address] [place] [address], [address], 12/26/2022 12:35:58 12/27/19 23 12/26/2022 LIPID PANEL HDL cholesterol 72 mg/dL 40- Not Available [facility] (Lab) [address] [place] [address], [address], 12/26/2022 12:35:58 12/27/19 23 12/26/2022 LIPID PANEL LDL cholesterol, calculated 80 mg/dL 0-130 NIH MILY NSUS REPOR T RECOM MENDA TIONS FOR LDL: ADULT CHILD LOW RISK <130 <110 (OPTI MAL LDL) <100 ----- BORDE RLINE : 130-1 59 ----- HIGH RISK: >160 >130 A TRIGL YCERI DE RESUL T >400 INVAL IDATE S THE CALCU LATIO N FOR LDL FRACT IONAT ION - THE LDL RESUL T WILL NOT BE REPOR LORRAINE. Not Available [facility] (Lab) [address] [place], [address], 12/26/2022 12:35:58 12/27/1912/26/2022 TSH thyroid-stim ulating hormone 3.000 uIU/m L 0.465- 4.680 Not Available [facility] (Lab) [address] [place], [address], 12/26/2022 12:40:17 07/02/2007/02/2023 CBC/C OMPLE TE BLD COUNT W/DIF F white blood cells 5.6 x10'3 /uL 4.2-10 .8 Not Available [facility] (Lab) [address] [place], [address], 07/02/2023 10:37:34 07/02/2007/02/2023 CBC/C OMPLE TE BLD COUNT W/DIF F red blood cells 3.91 x10'6 /uL 3.80-5 .20 Not Available [facility] (Lab) [address] [place], [address], 07/02/2023 10:37:34 07/02/20 23 07/02/2023 CBC/C OMPLE TE BLD COUNT W/DIF F hemoglobin 12.8 g/dL 12.0-1 5.6 Not Available [facility] (Lab) [address] [place], [address], 07/02/2023 10:37:34 07/02/20 23 07/02/2023 CBC/C OMPLE TE BLD COUNT W/DIF F hematocrit 38.9 % 35.7-4 5.7 Not Available [facility] (Lab) [address] [place], [address], 07/02/2023 10:37:34 07/02/20 23 07/02/2023 CBC/C OMPLE TE BLD COUNT W/DIF F mean red cell volume 99.5 fL 82.0-9 9.0 high Not Available [facility] (Lab) [address] [place], [address], 07/02/2023 10:37:34 07/02/2007/02/2023 CBC/C OMPLE TE BLD COUNT W/DIF F mean red cell hemoglobin 32.7 pg 27.0-3 3.0 Not Available [facility] (Lab) [address] [place], [address], 07/02/2023 10:37:34 07/02/2007/02/2023 CBC/C OMPLE TE BLD COUNT W/DIF F mean RBC HGB concentratio n 32.9 g/dL 31.0-3 6.0 Not Available [facility] (Lab) [address] [place], [address], 07/02/2023 10:37:34 07/02/2007/02/2023 CBC/C OMPLE TE BLD COUNT W/DIF F red cell distribution width 14.5 % 11.8-1 5.5 Not Available [facility] (Lab) [address] [place], [address], 07/02/2023 10:37:34 07/02/20 23 07/02/2023 CBC/C OMPLE TE BLD COUNT W/DIF F platelets 199 x10'3 /uL 150-40 0 Not Available [facility] (Lab) [address] [place], [address], 07/02/2023 10:37:34 07/02/20 23 07/02/2023 CBC/C OMPLE TE BLD COUNT W/DIF F mean platelet volume 10.4 fL 9.0-12 .4 Not Available [facility] (Lab) [address] [place], [address], 07/02/2023 10:37:34 07/02/20 23 07/02/2023 CBC/C OMPLE TE BLD COUNT W/DIF F neutrophils 60.2 % 39.0-7 2.0 Not Available [facility] (Lab) [address] [place], [address], 07/02/2023 10:37:34 07/02/2007/02/2023 CBC/C OMPLE TE BLD COUNT W/DIF F lymphocytes 21.1 % 16.0-4 7.0 Not Available [facility] (Lab) [address] [place], [address], 07/02/2023 10:37:34 07/02/2007/02/2023 CBC/C OMPLE TE BLD COUNT W/DIF F monocytes 12.5 % 5.0-12 .0 high Not Available [facility] (Lab) [address] [place], [address], 07/02/2023 10:37:34 07/02/2007/02/2023 CBC/C OMPLE TE BLD COUNT W/DIF F eosinophils 4.6 % 1.0-7. 0 Not Available [facility] (Lab) [address] [place], [address], 07/02/2023 10:37:34 07/02/2007/02/2023 CBC/C OMPLE TE BLD COUNT W/DIF F basophils 1.4 % 0.0-2. 0 Not Available [facility] (Lab) [address] [place], [address], 07/02/2023 10:37:34 07/02/2007/02/2023 CBC/C OMPLE TE BLD COUNT W/DIF F immature granulocytes 0.2 % 0.00-0 .50 Not Available [facility] (Lab) [address] [place], [address], 07/02/2023 10:37:34 10/11/20 23 07/02/2023 CBC/C OMPLE TE BLD COUNT W/DIF F neutrophils, absolute count 3.37 x10'3 /uL 1.5-8. 0 Not Available [facility] (Lab) [address] [place], [address], 07/02/2023 10:37:34 07/02/20 23 07/02/2023 CBC/C OMPLE TE BLD COUNT W/DIF F lymphocytes, absolute count 1.18 x10'3 /uL 1.07-3 .43 Not Available [facility] (Lab) [address] [place], [address], 07/02/2023 10:37:34 07/02/2007/02/2023 CBC/C OMPLE TE BLD COUNT W/DIF F monocytes, absolute count 0.70 x10'3 /uL 0.29-0 .99 Not Available [facility] (Lab) [address] [place], [address], 07/02/2023 10:37:34 07/02/20 23 07/02/2023 CBC/C OMPLE TE BLD COUNT W/DIF F eosinophils, absolute count 0.26 x10'3 /uL 0.02-0 .53 Not Available [facility] (Lab) [address] [place], [address], 07/02/2023 10:37:34 07/02/20 23 07/02/2023 CBC/C OMPLE TE BLD COUNT W/DIF F basophils, absolute count 0.08 x10'3 /uL 0.01-0 .08 Not Available [facility] (Lab) [address] [place], [address], 07/02/2023 10:37:34 07/02/20 23 07/02/2023 CBC/C OMPLE TE BLD COUNT W/DIF F immature granulocytes ,absolute 0.01 x10'3 /uL 0.00-0 .05 Not Available [facility] (Lab) [address] [place], [address], 07/02/2023 10:37:34 07/02/20 23 07/02/2023 CBC/C OMPLE TE BLD COUNT W/DIF F nucleated red blood cells 0.0 % -0 Not Available [facility] (Lab) [address] [place], [address], 07/02/2023 10:37:34 07/02/20 23 07/02/2023 CBC/C OMPLE TE BLD COUNT W/DIF F NRBC# 0.00 x10'3 /uL Not Available [facility] (Lab) [address] [place], [address], 07/02/2023 10:37:34 07/02/20 23 07/02/2023 T4 FREE free T4 1.02 NG/dL 0.78-2 .19 Not Available [facility] (Lab) [address] [place], [address], 07/02/2023 10:46:14 07/02/2007/02/2023 VITAM IN D 25-HY DROXY [id number] 54.0 NG/mL 30-100 Vitam in D Statu s: Defic ient: <20 ng/mL Insuf ficie nt: 20-29 ng/mL Suffi cient : 30-10 0 ng/mL Not Available [facility] (Lab) [address] [place], [address], 07/02/2023 10:55:23 07/02/20 23 07/02/2023 TSH thyroid-stim ulating hormone 3.720 uIU/m L 0.465- 4.680 Not Available [facility] (Lab) [address] [place], [address], 07/02/2023 10:59:59 07/02/20 23 07/02/2023 COMPR EHENS FREDERIC METAB OLIC PANEL sodium 138 mmol/ L 137-14 5 Not Available [facility] (Lab) [address] [place], [address], 07/02/2023 11:06:37 07/02/2007/02/2023 COMPR EHENS FREDERIC METAB OLIC PANEL potassium 4.2 mmol/ L 3.5-5. 1 Not Available [facility] (Lab) [address] [place], [address], 07/02/2023 11:06:37 07/02/2007/02/2023 COMPR EHENS FREDERIC METAB OLIC PANEL chloride 102 mmol/ L 98-107 Not Available [facility] (Lab) [address] [place], [address], 07/02/2023 11:06:37 07/02/2007/02/2023 COMPR EHENS FREDERIC METAB OLIC PANEL carbon dioxide 31 mmol/ L 22-30 high Not Available [facility] (Lab) [address] [place], [address], 07/02/2023 11:06:37 07/02/2007/02/2023 COMPR EHENS FREDERIC METAB OLIC PANEL anion gap 9.2 mmol/ L 14-22 low Not Available [facility] (Lab) [address] [place], [address], 07/02/2023 11:06:37 07/02/2007/02/2023 COMPR EHENS FREDERIC METAB OLIC PANEL glucose 96 mg/dL 70-99 Not Available [facility] (Lab) [address] [place], [address], 07/02/2023 11:06:37 07/02/2007/02/2023 COMPR EHENS FREDERIC METAB OLIC PANEL BUN 34 mg/dL 8-19 high Not Available [facility] (Lab) [address] [place], [address], 07/02/2023 11:06:37 07/02/2007/02/2023 COMPR EHENS FREDERIC METAB OLIC PANEL creatinine 1.12 mg/dL 0.66-1 .25 Not Available [facility] (Lab) [address] [place], [address], 07/02/2023 11:06:37 07/02/20 23 07/02/2023 COMPR EHENS FREDERIC METAB OLIC PANEL GFR 48 Refer ence Range : [place] ge GFR Healt hy Adult : >60 mL/mi n/1.7 3 m2 Chron ic Kidne y Disea se: 15-60 mL/mi n/1.7 3 m2 Kidne y Failu re: <15/m L/min /1.73 m2 www.n iddk. nih.g ov The MDRD study equat ion has not been valid ated in child modesto <18 years of age; pregn ant women ; the elder ly >85 years of age; or in some racia l or ethni c subgr oups, such as Hiswv nics. Outsi de the valid ated margarita eters , estim ated GFR is less accur ate, requi ring clini shahriar judgm ent on a case- by-ca se basis . Clini shahriar inter preta tion for other races and ages must be made by the clini verónica. The MDRD study equat ion has not been valid ated for the evalu ation of serum creat inine relat ed to nutri clark l statu s or medic ation usage . For perso ns <18 years of age, a pedia tric GFR calcu lator is avail able on the [facility] websi te: https ://mansoor w.kid bess.o rg/pr ofess ional s/kdo qi/gf r_cal culat or Not Available [facility] (Lab) [address] [place], [address], 07/02/2023 11:06:37 07/02/20 23 07/02/2023 COMPR EHENS FREDERIC METAB OLIC PANEL alkaline phosphatase 68 U/L 38-126 Not Available [facility] (Lab) [address] [place], [address], 07/02/2023 11:06:37 07/02/20 23 07/02/2023 COMPR EHENS FREDERIC METAB OLIC PANEL alanine aminotransfe rase 30 U/L 0-35 Not Available [facility] (Lab) [address] [place], [address], 07/02/2023 11:06:37 07/02/2007/02/2023 COMPR EHENS FREDERIC METAB OLIC PANEL aspartate aminotransfe rase 37 U/L 15-37 Not Available [facility] (Lab) [address] [place], [address], 07/02/2023 11:06:37 07/02/2007/02/2023 COMPR EHENS FREDERIC METAB OLIC PANEL bilirubin, total 0.60 mg/dL 0.20-1 .30 Not Available [facility] (Lab) [address] [place], [address], 07/02/2023 11:06:37 07/02/20 23 07/02/2023 COMPR EHENS FREDERIC METAB OLIC PANEL calcium 9.7 mg/dL 8.4-10 .2 Not Available [facility] (Lab) [address] [place], [address], 07/02/2023 11:06:37 07/02/2007/02/2023 COMPR EHENS FREDERIC METAB OLIC PANEL total protein 6.1 g/dL 6.3-8. 2 low Not Available [facility] (Lab) [address] [place], [address], 07/02/2023 11:06:37 07/02/2007/02/2023 COMPR EHENS FREDERIC METAB OLIC PANEL albumin 3.8 g/dL 3.0-4. 4 Not Available [facility] (Lab) [address] [place], [address], 07/02/2023 11:06:37 07/02/2007/02/2023 COMPR EHENS FREDERIC METAB OLIC PANEL globulin 2.3 g/dL 2.6-4. 2 low Not Available [facility] (Lab) [address] [place] [address], [address], 07/02/2023 11:06:37 07/02/20 23 07/02/2023 COMPR EHENS FREDERIC METAB OLIC PANEL A/G ratio 1.7 ratio 1.0-2. 0 Not Available [facility] (Lab) [address] [place], [address], 07/02/2023 11:06:37 07/02/2007/02/2023 LIPID PANEL cholesterol 156 mg/dL 140-19 9 NIH MILY NSUS RECOM MENDA TION FOR AUGUSTINA STERO L: ADULT CHILD LOW RISK: <200 <170 BORDE RLINE : <200- 239 ----- HIGH RISK: >240 >200 Not Available [facility] (Lab) [address] [place], [address], 07/02/2023 11:06:42 07/02/2007/02/2023 LIPID PANEL triglyceride s 52 mg/dL 0-150 NIH MILY NSUS REPOR T RECOM MENDA TION FOR TRIGL YCERI PILI: ADULT CHILD LOW RISK: <150 ----- BODER LINE: 150-1 99 ----- HIGH RISK: >200 ----- Not Available [facility] (Lab) [address] [place], [address], 07/02/2023 11:06:42 07/02/2007/02/2023 LIPID PANEL HDL cholesterol 68 mg/dL 40- Not Available [facility] (Lab) [address] [place] [address], [address], 07/02/2023 11:06:42 07/02/2007/02/2023 LIPID PANEL LDL cholesterol, calculated 78 mg/dL 0-130 NIH MILY NSUS REPOR T RECOM MENDA TIONS FOR LDL: ADULT CHILD LOW RISK <130 <110 (OPTI MAL LDL) <100 ----- BORDE RLINE : 130-1 59 ----- HIGH RISK: >160 >130 A TRIGL YCERI DE RESUL T >400 INVAL IDATE S THE CALCU LATIO N FOR LDL FRACT IONAT ION - THE LDL RESUL T WILL NOT BE REPOR LORRAINE. Not Available [facility] (Lab) [address] [place], [address], 07/02/2023 11:06:42 12/31/19 24 12/31/2023 CBC/C OMPLE TE BLD COUNT W/DIF F white blood cells 4.5 x10'3 /uL 4.2-10 .8 Not Available [facility] (Lab) [address] [place], [address], 12/31/2023 12:00:16 12/31/19 24 12/31/2023 CBC/C OMPLE TE BLD COUNT W/DIF F red blood cells 4.05 x10'6 /uL 3.80-5 .20 Not Available [facility] (Lab) [address] [place], [address], 12/31/2023 12:00:16 12/31/19 24 12/31/2023 CBC/C OMPLE TE BLD COUNT W/DIF F hemoglobin 13.3 g/dL 12.0-1 5.6 Not Available [facility] (Lab) [address] [place], [address], 12/31/2023 12:00:16 12/31/19 24 12/31/2023 CBC/C OMPLE TE BLD COUNT W/DIF F hematocrit 38.7 % 35.7-4 5.7 Not Available [facility] (Lab) [address] [place], [address], 12/31/2023 12:00:16 12/31/19 24 12/31/2023 CBC/C OMPLE TE BLD COUNT W/DIF F mean red cell volume 95.6 fL 82.0-9 9.0 Not Available [facility] (Lab) [address] [place], [address], 12/31/2023 12:00:16 12/31/19 24 12/31/2023 CBC/C OMPLE TE BLD COUNT W/DIF F mean red cell hemoglobin 32.8 pg 27.0-3 3.0 Not Available [facility] (Lab) [address] [place], [address], 12/31/2023 12:00:16 12/31/19 24 12/31/2023 CBC/C OMPLE TE BLD COUNT W/DIF F mean RBC HGB concentratio n 34.4 g/dL 31.0-3 6.0 Not Available [facility] (Lab) [address] [place], [address], 12/31/2023 12:00:16 12/31/19 24 12/31/2023 CBC/C OMPLE TE BLD COUNT W/DIF F red cell distribution width 15.5 % 11.8-1 5.5 Not Available [facility] (Lab) [address] [place], [address], 12/31/2023 12:00:16 12/31/19 24 12/31/2023 CBC/C OMPLE TE BLD COUNT W/DIF F platelets 207 x10'3 /uL 150-40 0 Not Available [facility] (Lab) [address] [place], [address], 12/31/2023 12:00:16 12/31/19 24 12/31/2023 CBC/C OMPLE TE BLD COUNT W/DIF F mean platelet volume 10.0 fL 9.0-12 .4 Not Available [facility] (Lab) [address] [place], [address], 12/31/2023 12:00:16 12/31/19 24 12/31/2023 CBC/C OMPLE TE BLD COUNT W/DIF F neutrophils 50.9 % 39.0-7 2.0 Not Available [facility] (Lab) [address] [place], [address], 12/31/2023 12:00:16 12/31/19 24 12/31/2023 CBC/C OMPLE TE BLD COUNT W/DIF F lymphocytes 22.8 % 16.0-4 7.0 Not Available [facility] (Lab) [address] [place], [address], 12/31/2023 12:00:16 12/31/1912/31/2023 CBC/C OMPLE TE BLD COUNT W/DIF F monocytes 16.5 % 5.0-12 .0 high Not Available [facility] (Lab) [address] [place], [address], 12/31/2023 12:00:16 12/31/19 24 12/31/2023 CBC/C OMPLE TE BLD COUNT W/DIF F eosinophils 7.8 % 1.0-7. 0 high Not Available [facility] (Lab) [address] [place], [address], 12/31/2023 12:00:16 12/31/19 24 12/31/2023 CBC/C OMPLE TE BLD COUNT W/DIF F basophils 1.6 % 0.0-2. 0 Not Available [facility] (Lab) [address] [place], [address], 12/31/2023 12:00:16 12/31/19 24 12/31/2023 CBC/C OMPLE TE BLD COUNT W/DIF F immature granulocytes 0.4 % 0.00-0 .50 Not Available [facility] (Lab) [address] [place], [address], 12/31/2023 12:00:16 12/31/19 24 12/31/2023 CBC/C OMPLE TE BLD COUNT W/DIF F neutrophils, absolute count 2.28 x10'3 /uL 1.5-8. 0 Not Available [facility] (Lab) [address] [place], [address], 12/31/2023 12:00:16 12/31/19 24 12/31/2023 CBC/C OMPLE TE BLD COUNT W/DIF F lymphocytes, absolute count 1.02 x10'3 /uL 1.07-3 .43 low Not Available [facility] (Lab) [address] [place], [address], 12/31/2023 12:00:16 12/31/19 24 12/31/2023 CBC/C OMPLE TE BLD COUNT W/DIF F monocytes, absolute count 0.74 x10'3 /uL 0.29-0 .99 Not Available [facility] (Lab) [address] [place], [address], 12/31/2023 12:00:16 12/31/19 24 12/31/2023 CBC/C OMPLE TE BLD COUNT W/DIF F eosinophils, absolute count 0.35 x10'3 /uL 0.02-0 .53 Not Available [facility] (Lab) [address] [place], [address], 12/31/2023 12:00:16 12/31/19 24 12/31/2023 CBC/C OMPLE TE BLD COUNT W/DIF F basophils, absolute count 0.07 x10'3 /uL 0.01-0 .08 Not Available [facility] (Lab) [address] [place], [address], 12/31/2023 12:00:16 12/31/19 24 12/31/2023 CBC/C OMPLE TE BLD COUNT W/DIF F immature granulocytes ,absolute 0.02 x10'3 /uL 0.00-0 .05 Not Available [facility] (Lab) [address] [place], [address], 12/31/2023 12:00:16 12/31/19 24 12/31/2023 CBC/C OMPLE TE BLD COUNT W/DIF F nucleated red blood cells 0.0 % -0 Not Available [facility] (Lab) [address] [place], [address], 12/31/2023 12:00:16 12/31/19 24 12/31/2023 CBC/C OMPLE TE BLD COUNT W/DIF F NRBC# 0.00 x10'3 /uL Not Available [facility] (Lab) [address] [place], [address], 12/31/2023 12:00:16 12/31/19 24 12/31/2023 COMPR EHENS FREDERIC METAB OLIC PANEL sodium 138 mmol/ L 137-14 5 Not Available [facility] (Lab) [address] [place], [address], 12/31/2023 12:09:18 12/31/19 24 12/31/2023 COMPR EHENS FREDERIC METAB OLIC PANEL potassium 4.0 mmol/ L 3.5-5. 1 Not Available [facility] (Lab) [address] [place], [address], 12/31/2023 12:09:18 12/31/19 24 12/31/2023 COMPR EHENS FREDERIC METAB OLIC PANEL chloride 105 mmol/ L 98-107 Not Available [facility] (Lab) [address] [place], [address], 12/31/2023 12:09:18 12/31/19 24 12/31/2023 COMPR EHENS FREDERIC METAB OLIC PANEL carbon dioxide 27 mmol/ L 22-30 Not Available [facility] (Lab) [address] [place], [address], 12/31/2023 12:09:18 12/31/19 24 12/31/2023 COMPR EHENS FREDERIC METAB OLIC PANEL anion gap 10.0 mmol/ L 14-22 low Not Available [facility] (Lab) [address] [place], [address], 12/31/2023 12:09:18 12/31/19 24 12/31/2023 COMPR EHENS FREDERIC METAB OLIC PANEL glucose 101 mg/dL 70-99 high Not Available [facility] (Lab) [address] [place], [address], 12/31/2023 12:09:18 12/31/19 24 12/31/2023 COMPR EHENS FREDERIC METAB OLIC PANEL BUN 26 mg/dL 8-19 high Not Available [facility] (Lab) [address] [place], [address], 12/31/2023 12:09:18 12/31/19 24 12/31/2023 COMPR EHENS FREDERIC METAB OLIC PANEL creatinine 1.06 mg/dL 0.66-1 .25 Not Available [facility] (Lab) [address] [place], [address], 12/31/2023 12:09:18 12/31/19 24 12/31/2023 COMPR EHENS FREDERIC METAB OLIC PANEL GFR 52 Refer ence Range : [place] ge GFR Healt hy Adult : >60 mL/mi n/1.7 3 m2 Chron ic Kidne y Disea se: 15-60 mL/mi n/1.7 3 m2 Kidne y Failu re: <15/m L/min /1.73 m2 www.n iddk. nih.g ov The MDRD study equat ion has not been valid ated in child [place] <18 years of age; pregn ant women ; the elder ly >85 years of age; or in some racia l or ethni c subgr oups, such as Hispa nics. Outsi de the valid ated margarita eters , estim ated GFR is less accur ate, requi ring clini shahriar judgm ent on a case- by-ca se basis . Clini shahriar inter preta tion for other races and ages must be made by the clini verónica. The MDRD study equat ion has not been valid ated for the evalu ation of serum creat inine relat ed to nutri clark l statu s or medic ation usage . For perso ns <18 years of age, a pedia tric GFR calcu lator is avail able on the F websi te: https ://mansoor w.janak corderoy.o rg/pr ofess ional s/kdo qi/gf r_cal culat or Not Available [facility] (Lab) [address] [place], [address], 12/31/2023 12:09:18 12/31/19 24 12/31/2023 COMPR EHENS FREDERIC METAB OLIC PANEL alkaline phosphatase 88 U/L 38-126 Not Available [facility] (Lab) [address] [place], [address], 12/31/2023 12:09:18 12/31/19 24 12/31/2023 COMPR EHENS FREDERIC METAB OLIC PANEL alanine aminotransfe rase 35 U/L 0-35 Not Available [facility] (Lab) [address] [place], [address], 12/31/2023 12:09:18 12/31/19 24 12/31/2023 COMPR EHENS FREDERIC METAB OLIC PANEL aspartate aminotransfe rase 46 U/L 15-37 high Not Available [facility] (Lab) [address] [place], [address], 12/31/2023 12:09:18 12/31/19 24 12/31/2023 COMPR EHENS FREDERIC METAB OLIC PANEL bilirubin, total 0.60 mg/dL 0.20-1 .30 Not Available [facility] (Lab) [address] [place], [address], 12/31/2023 12:09:18 12/31/19 24 12/31/2023 COMPR EHENS FREDERIC METAB OLIC PANEL calcium 9.7 mg/dL 8.4-10 .2 Not Available [facility] (Lab) [address] [place], [address], 12/31/2023 12:09:18 12/31/19 24 12/31/2023 COMPR EHENS FREDERIC METAB OLIC PANEL total protein 6.2 g/dL 6.3-8. 2 low Not Available [facility] (Lab) [address] [place], [address], 12/31/2023 12:09:18 12/31/19 24 12/31/2023 COMPR EHENS FREDREIC METAB OLIC PANEL albumin 4.0 g/dL 3.0-4. 4 Not Available [facility] (Lab) [address] [place], [address], 12/31/2023 12:09:18 12/31/19 24 12/31/2023 COMPR EHENS FREDERIC METAB OLIC PANEL globulin 2.2 g/dL 2.6-4. 2 low Not Available [facility] (Lab) [address] [place], [address], 12/31/2023 12:09:18 12/31/19 24 12/31/2023 COMPR EHENS FREDERIC METAB OLIC PANEL A/G ratio 1.8 ratio 1.0-2. 0 Not Available [facility] (Lab) [address] [place], [address], 12/31/2023 12:09:18 12/31/19 24 12/31/2023 LIPID PANEL cholesterol 152 mg/dL 140-19 9 NIH MILY NSUS RECOM MENDA TION FOR AUGUSTINA STERO L: ADULT CHILD LOW RISK: <200 <170 BORDE RLINE : <200- 239 ----- HIGH RISK: >240 >200 Not Available [facility] (Lab) [address] [place], [address], 12/31/2023 12:09:22 12/31/19 24 12/31/2023 LIPID PANEL triglyceride s 63 mg/dL 0-150 NIH MILY NSUS REPOR T RECOM MENDA TION FOR TRIGL YCERI PILI: ADULT CHILD LOW RISK: <150 ----- BODER LINE: 150-1 99 ----- HIGH RISK: >200 ----- Not Available [facility] (Lab) [address] [place], [address], 12/31/2023 12:09:22 12/31/19 24 12/31/2023 LIPID PANEL HDL cholesterol 81 mg/dL 40- Not Available [facility] (Lab) [address] [place], [address], 12/31/2023 12:09:22 12/31/19 24 12/31/2023 LIPID PANEL LDL cholesterol, calculated 58 mg/dL 0-130 NIH MILY NSUS REPOR T RECOM MENDA TIONS FOR LDL: ADULT CHILD LOW RISK <130 <110 (OPTI MAL LDL) <100 ----- BORDE RLINE : 130-1 59 ----- HIGH RISK: >160 >130 A TRIGL YCERI DE RESUL T >400 INVAL IDATE S THE CALCU LATIO N FOR LDL FRACT IONAT ION - THE LDL RESUL T WILL NOT BE REPOR LORRAINE. Not Available [facility] (Lab) [address] [place], [address], 12/31/2023 12:09:22 12/31/19 24 12/31/2023 T4 FREE free T4 0.93 NG/dL 0.78-2 .19 Not Available [facility] (Lab) [address] [place], [address], 12/31/2023 12:20:16 12/31/19 24 12/31/2023 TSH thyroid-stim ulating hormone 3.200 uIU/m L 0.465- 4.680 Not Available [facility] (Lab) [address] [place], [address], 12/31/2023 12:37:33 06/19/20 22 01/22/2022 MAMMO , scree alicia, digit al, bilat eral No observ ation record ed. MIGRATION. [id number] [facility] [address], [place], [address], 11/20/2022 06:18:52 07/15/20 22 07/12/2022 DEXA No observ ation record ed. MIGRATION. [id number] [facility] [address], [place], [address], 11/20/2022 06:18:52 10/25/19 23 10/25/2022 XR, cervi shahriar spine No observ ation record ed. MIGRATION. [id number] [facility] [address], [place], [address], 11/20/2022 06:18:52 02/29/20 23 02/28/2023 MAMMO , scree alicia, digit al, bilat eral No observ ation record ed. [email or web address] [facility] [address], [place], [address], 02/28/2023 16:36:12 03/02/20 24 03/02/2024 DEXA, axial skele ton [facility] [address] [address] Pati t Name: MARY NASCIMENTO Access ion #: [id number] Sex: F : 1954 5 Dictat ed By: Presley Alcazar ms Attend ing Physic jagdish: MARIANNE GRAVES CE [facility] Physic jagdish: MARIANNE GRAVES CE Exam Date: 2023 08:09 AM Exam Name: XR DEXA-H IPS PELVIS SPINE Admitt ing Diagno sis(es ): PROCED URE: DEXA SCAN INDICA TION: 68 years old, Female ; screen ing. Postme radha al female . TECHNI QUE: Bone densit ometry of the lumbar spine and bilate ral hips was perfor med on a [email or web address] c unit using dual energy x-ray absorp tiomet ry (DEXA) . COMPAR EMILY: None BONE DENSIT Y REPORT : The senior storage engineer images are limite d for evalua tion of fine bony detail . BONE DENSIT Y REPORT : Bone minera l densit y (BMD) AP SPINE (L1-L4 ) BMD: 1.301 (Grams /cm2). T Score: 0.9 Z-scor e: 1.3 LEFT FEMORA L NECK BMD: 0.950 (Grams /cm2). T Score: -0.6 Z-scor e: 0.2 LEFT HIP TOTAL BMD: 0.951 (Grams /cm2). T Score: -0.5 Z-scor e: 0.1 RT FEMORA L NECK BMD: 0.988 (Grams /cm2). T Score: -0.4 z-scor e: 0.5 RT HIP TOTAL BMD: 0.978 (Grams /cm2). T Score: -0.2 Z-scor e: 0.3 10 YEAR FRACTU RE RISK* Page 1 [facility] [place] [address] Patien t Name: MARY NASCIMENTO Access ion #: [id number] Sex: F : 1954 5 Dictat ed By: Presley Alcazar ms Attend ing Physic jagdish: BRIDGETTE MORALES Physic jagdish: MARIANNE GRAVES Exam Date: 2023 08:09 AM Exam Name: XR DEXA-H IPS PELVIS SPINE Admitt ing Diagno sis(es ): Major osteop orotic fractu re not provid ed (less than 20% is consid ered low risk). Hip fractu re not provid ed (less than 3% is consid ered low risk). IMPRES JOSHUA: 1. Using the World Health Organi zation (WHO) classi ficati on, bone minera l densit y is: Normal . ------ ------ ------ ------ ------ ------ ------ ------ ----- *FRAX versio n 3.08. Fractu re probab ility calcul ated for an untrea lorraine patien t. Fractu re probab ility may be lower if the patien t has receiv ed treatm ent. T-scor e: compar emily by krishna johnson deviat ion (SD) to a young adult popula tion, matche d for sex and ethnic ity (used for postme nopaus al women and men >50 years) and classi fied by WHO criter ia. -1.0: normal <-1.0 to >-2.5: osteop enia -2.5: osteop orosis -2.5 plus fragil ity fractu re: severe osteop orosis Z-scor e: compar ed by SD to an age, sex, and ethnic ity popula tion (used for premen opausa l women, men <50 years, and childr en instea d of T-scor e WHO criter ia 4) <-2.0: below expect ed range/ low bone densit y for age, and a cause should be sought . All treatm ent decisi ons requir e clinic al judgme nt and consid eratio n of indivi dual patien t factor s, includ ing patien t prefer ences, comorb iditie s, previo us drug use and risk factor s not captur ed in the FRAX model (for exampl e vitami n D defici ency, falls, frailt y, increa sed bone turnov er, interv al signif icant declin e in BMD). Electr onical ly Signed by: Presley Alcazar ms at 2023 08:41: 16 AM Page 3 [email or web address] [facility] ([facility]) [address] [place], [address], 03/02/2024 09:52:49 03/02/20 24 03/02/2024 teresa vargas breas t joo, bilat [facility] [address] [place] [address] Patihaven t Name: MARY NASCIMENTO ion #: [id number] Sex: F : 1954 5 Dictat ed By: Eloisa Forde Attend ing Physic jagdish: MARIANNE GRAVES CE Orderi ng Physic jagdish: MARIANNE GRAVES CE Exam Date: 2023 07:54 AM Exam Name: MG SCRN BREAST JOO BILAT Admitt ing Diagno sis(es ): SCREEN ING MAMMOG CARMELINA WITH TOMOSY NTHESI S: REASON FOR EXAM: screen ing COMPAR EMILY: None TECHNI QUE: Bilate ral CC and MLO views obtain ed. Images were obtain ed using a Digita l [employer] n[employer]si s Unit. Standa rd 2D and 3D Tomosy nthesi s images were review ed. FINDIN GS: BREAST COMPOS ITION: The bilate ral breast s are almost entire ly fatty. In the right breast , no asymme trical parenc hymal patter n, kranthi ectura l distor tion, pleomo rphic microc alcifi cation s or masses . In the left breast , no asymme trical parenc hymal patter n, kranthi ectura l distor tion, pleomo rphic microc alcifi cation s or masses . IMPRES JOSHUA: No findin gs of malign ruddy. Recomm end annual mammog carmelina. BIRADS : 1 - Negati ve Electr onical ly Signed by: Eloisa Forde at 2023 10:09: 29 AM Page 1 [email or web address] [facility] ([facility]) [address] [place], [address], 03/02/2024 14:14:10 Result Notes None recorded. Problems Name Problem SNOMED Code Status Onset Date Resolution Date Notes Provider Name and Address Organization Details Recorded Time Edema of lower extremity 070842311 Active 2016 Not Available [facility] 3 06:14:20 Senile osteoporos is 56722987 Active 2021 Not Available [facility] 3 06:14:21 Nonvenomou s insect bite of trunk with infection 47732530 Active Not Available Counts include 234 beds at the [facility] 3 06:14:21 Cellulitis and abscess of buttock 505654287 Active Not Available Counts include 234 beds at the [facility] 3 06:14:21 Bite of nonvenomou s arthropod Active Not Available Counts include 234 beds at the [facility] 3 06:14:21 Gastroesop hageal reflux disease 301703312 Active Not Available Counts include 234 beds at the [facility] 3 06:14:21 Restless legs 14553134 Active Not Available Counts include 234 beds at the [facility] 3 06:14:21 Vitamin D deficiency 98883559 Active 2021 Not Available Counts include 234 beds at the [facility] 3 06:14:21 Depressive disorder 08036822 Active Not Available Counts include 234 beds at the [facility] 3 06:14:21 Migraine 55458396 Active Not Available Counts include 234 beds at the [facility] 3 06:14:21 Illness 76457943 Active Not Available Counts include 234 beds at the [facility] 3 06:14:21 Vertigo 757570293 Active Not Available Counts include 234 beds at the [facility] 3 06:14:21 Midline cystocele 914181903 Active Not Available Counts include 234 beds at the [facility] 3 06:14:21 Atrophic vaginitis 36045614 Active Not Available Counts include 234 beds at the [facility] 3 06:14:21 Essential hypertensi on 19580574 Active 2021 Not Available Counts include 234 beds at the [facility] 3 06:14:21 Female stress incontinen ce 13602620 Active Not Available Counts include 234 beds at the [facility] 3 06:14:21 Acute maxillary sinusitis 04961420 Active Not Available Counts include 234 beds at the [facility] 3 06:14:21 Sj??gren's syndrome 57051606 Active Not Available Counts include 234 beds at the [facility] 3 06:14:22 Cervical radiculopa thy 96934734 Active 2022 Candi Graves MD [address], [place], [address] , [facility] [employer] [facility] 3 10:54:13 Obesity 811665894 Active 2022 Candi Graves MD [address], [place], [address] , [facility] [employer] [facility] [employer] 10:55:17 Obese class II [id number] 05 Active 2022 Candi Graves MD [address], [place], [address] , [facility] [employer] 10:58:29 Rheumatoid arthritis 23345315 Active 2022 Candi Graves MD [address], [place], [address] , [facility] [employer] [facility] [employer] [facility] 10:59:42 Problem Notes None recorded. Procedures Surgical History Date Name Laterality Status Provider Name and Address Organization Details Recorded Time 07/05/20 24 Medicare Wellness CPT Code, subsequent completed Nedra Villaseñor RN [employer] [facility] 07/05/2024 14:38:53 06/25/20 23 Medicare Wellness CPT Code, subsequent completed Nedra Villaseñor RN [employer] [facility] 06/25/2023 10:49:04 09/01/20 18 Date of Last Colonoscopy completed Not Available Counts include 234 beds at the [facility] 11/20/2022 06:10:38 Imaging Results Imaging Date Name Status LastModified by Organiz ation Details LastModified Time 10/25/2022 XR, cervical spine completed [id number] [facility] [address], [place], [address], 11/20/2022 06:18:52 07/12/2022 DEXA completed [id number] [facility] [address], [place], [address], 11/20/2022 06:18:52 01/22/2022 MAMMO, screening, digital, bilateral completed [id number] [facility] [address], [place], [address], 11/20/2022 06:18:52 02/28/2023 MAMMO, screening, digital, bilateral completed [email or web address] [facility] [address] [place], [address], 02/28/2023 16:36:12 03/02/2024 DEXA, axial skeleton completed [address] (Imaging) [address] [place], [address], 03/02/2024 09:52:49 03/02/2024 screening breast joo, bilat completed [address] (Imaging) [address] [place], [address], 03/02/2024 14:14:10 Procedure Notes None recorded. Medical Equipment None Reported. Allergies Allergen ID Allergen Name Allergen Category Reaction Reaction Severity Criticality Documentation Date Start Date Code Code System Note Provider Name and Address Organization Details Recorded Time 57618 Substance with sulfonami de structure and antibacte rial mechanism of action (substanc e) medicatio n other Not available Not available 11/20/2022 [id number] SNOMED facia l swell ing Not Available [employer] 06:18:43 Medications Name Sig Start Date Stop Date Status Note LastModified by Organization Details LastModified Time cyclobenzap rine 10 mg tablet TK 1 T PO TID active Not Available Not Available No t Available amoxicillin 500 mg capsule Take 1 capsule 3 times a day by oral route for 10 days. 09/03 completed Not Available Not Available Not Available furosemide 40 mg tablet TAKE 1 TABLET BY MOUTH EVERY DAY NEEDED 2023 active Not Available Not Available Not Avai lable metolazone 2.5 mg tablet TAKE 1 TABLET BY MOUTH ON FRIDAY, AND FRIDAY FOR EDEMA 06/23 completed Not Available Not Available Not Available pilocarpine 5 mg tablet Take 1 tablet 3 times a day by oral route. active Not Available Not Available No t Available prednisone 10 mg tablet 12/19 completed Not Available Not Available Not Available cefuroxime axetil 250 mg tablet 01/28 completed Not Available Not Available Not Available naproxen 375 mg tablet active Not Available Not Available Not Available ropinirole 1 mg tablet TK 1 T PO QHS 01/28 completed Not Available Not Available Not Available triamterene 50 mg-hydrochl orothiazide 25 mg capsule TAKE ONE CAPSULE BY MOUTH EVERY DAY active Not Available Not Available No t Available ofloxacin 0.3 % eye drops INSTILL 1 DROP INTO AFFECTED EYE 3 TIMES A DAY BEGINNING 2 DAYS BEFORE SURGERY & CONTINUE X1WK AFTER 12/18 completed Not Available Not Available Not Available metoprolol tartrate 100 mg tablet TAKE 1 TABLET TWICE DAILY 2023 active Not Available Not Available Not Avai lable benzonatate 200 mg capsule Take 1 capsule 3 times a day by oral route. active Not Available Not Available No t Available Lotrisone 1 %-0.05 % topical cream Apply by topical route twice daily 09/17 completed Not Available Not Available Not Available hydrocodone 5 mg-acetamin ophen 325 mg tablet TAKE 1 TABLET BY MOUTH EVERY 6 TO 8 HOURS NEEDED FOR PAIN active Not Available Not Available No t Available fluticasone propionate 0.05 % topical cream active Not Available Not Available Not Available minocycline 100 mg capsule 06/20 completed Not Available Not Available Not Available meloxicam 15 mg tablet TAKE 1 TABLET BY MOUTH EVERY DAY BEFORE A MEAL active Not Available Not Available No t Available ropinirole 3 mg tablet Take 1 tablet 3 times a day by oral route. 10/04 completed Not Available Not Available Not Available betamethaso ne, augmented 0.05 % topical cream APPLY TOPICALLY TO THE AFFECTED AREA TWICE DAILY UNTIL GONE. RUB IN WELL. 14 DAY SUPPLY active Not Available Not Available No t Available doxycycline hyclate 50 mg capsule 12/18 completed Not Available Not Available Not Available prednisone 5 mg tablet TAKE 2 TABS DAILY X5 DAYS, 1 TAB DAILY X5 DAYS, THEN 1/2 TAB DAILY X5 DAYS active Not Available Not Available No t Available metronidazo le 250 mg tablet Take 2 tablets every 6 hours by oral route. 10/02 completed Not Available Not Available Not Available clobetasol 0.05 % topical cream RUB IN WELL TWICE A DAY TO INVOLVED AREAS OF BODY UNTIL CLEAR active Not Available Not Available No t Available Maxalt 10 mg tablet Take by oral route. 10/02 completed Not Available Not Available Not Available clindamycin HCl 150 mg capsule Take 1 capsule 4 times a day by oral route. 09/17 completed Not Available Not Available Not Available promethazin e 6.25 mg-codeine 10 mg/5 mL syrup 01/28 completed Not Available Not Available Not Available Nexium 40 mg capsule,del ayed release Take 1 capsule every day by oral route. 2014 active Not Available Not Available Not Hardeep molina amitriptyli ne 50 mg tablet TAKE 1 TABLET BY MOUTH EVERYDAY AT BEDTIME 06/20 completed Not Available Not Available Not Available clobetasol 0.05 % topical gel active Not Available Not Available Not Available ketorolac 0.5 % eye drops INSTILL 1 DROP INTO AFFECTED EYE 3 TIMES/ DAY BEGINNING 2 DAYS BEFORE SURGERY & CONTINUE X2WKS AFTER active Not Available Not Available No t Available Macrobid 100 mg capsule Take 1 capsule every 12 hours by oral route. 12/18 completed Not Available Not Available Not Available meloxicam 7.5 mg tablet Take 1 tablet by mouth every day 10/30 completed Not Available Not Available Not Available terbinafine HCl 250 mg tablet TAKE 1 TABLET BY MOUTH EVERY DAY 06/20 completed Not Available Not Available Not Available metoprolol tartrate 100 mg-hydrochl orothiazide 25 mg tablet TAKE 1 TABLET BY MOUTH TWICE DAILY 10/04 completed Not Available Not Available Not Available potassium chloride ER 20 mEq tablet,exte nded release(par t/cryst) TAKE 2 TABLETS BY MOUTH EVERY MORNING AND EVERY EVENING active Not Available Not Available No t Available prednisolon e acetate 1 % eye drops,suspe nsion INSTILL ONE DROP INTO BOTH EYES 4 TIMES A DAY FOR 2 WEEKS. active Not Available Not Available No t Available methotrexat e sodium 2.5 mg tablet TAKE 8 TABLET BY MOUTH WEEKLY FOR 90 DAYS. active Not Available Not Available No t Available gabapentin 800 mg tablet TAKE 1/2 TABLET EVERY NIGHT AT BEDTIME MAY INCREASE TO 1 EVERY NIGHT AT BEDTIME AFTER 1 WEEK. MAY INCREASE FURTHER UP TO 1/2 TO 1 THREE TIMES DAILY active Not Available Not Available No t Available Kenalog 10 mg/mL suspension for injection In office injection administe red by the provider 12/19 completed [facility]: [phone]- [phone] Not Available Not Available Not Available rizatriptan 10 mg disintegrat ing tablet DISSOLVE AND SWALLOW 1 T PO Q 24 HOURS PRF HEADACHE 06/20 completed Not Available Not Available Not Available ropinirole 2 mg tablet TAKE 2 EVERY AFTERNOON AND 3 AT BEDTIME LATER ON TRY TO REDUCE THE DOSE AT A RATE OF 1 EVERY 2 WEEKS IF POSSIBLE active Not Available Not Available No t Available cephalexin 500 mg capsule 12/19 completed Not Available Not Available Not Available erythromyci n 5 mg/gram (0.5 %) eye ointment APPLY A THIN LAYER ON EYELID 3 TIMES A DAY DIRECTED FOR 1 WEEK AFTER SURGERY active Not Available Not Available No t Available Cipro 500 mg tablet Take 1 tablet twice a day by oral route for 5 days. 06/17 completed Not Available Not Available Not Available cevimeline 30 mg capsule Take 1 capsule 3 times a day by oral route. 07/27 completed Not Available Not Available Not Available hydrocodone 7.5 mg-acetamin ophen 750 mg tablet 01/28 completed Not Available Not Available Not Available nystatin-tr iamcinolone 100,000 unit/g-0.1 % topical cream TESS TO CORNERS OF MOUTH QID active Not Available Not Available No t Available folic acid 1 mg tablet TAKE 1 TABLET BY MOUTH DAILY active Not Available Not Available No t Available hydroxyzine HCl 25 mg tablet TAKE 1 TABLET BY MOUTH EVERYDAY AT BEDTIME 06/25 completed Not Available Not Available Not Available allopurinol 300 mg tablet TAKE 1 TABLET BY MOUTH DAILY active Not Available Not Available No t Available hydrochloro thiazide 25 mg tablet TAKE 1 TABLET TWICE DAILY 2023 active Not Available Not Available Not Avai lable zolpidem 5 mg tablet Take 1 tablet every day by oral route. 06/23 completed Not Available Not Available Not Available furosemide 20 mg tablet TK 1 T PO BID 08/18 completed Not Available Not Available Not Available ergocalcife rol (vitamin D2) 1,250 mcg (50,000 unit) capsule TAKE ONE CAPSULE BY MOUTH EVERY WEEK 06/23 completed Not Available Not Available Not Available loteprednol etabonate 0.5 % eye drops,suspe nsion INSTILL ONE DROP INTO BOTH EYES TWICE A DAY. THIS IS REPLACING LOTEMAX SM THAT IS NOT AVAILABLE active Not Available Not Available No t Available hydroxychlo roquine 200 mg tablet TAKE 1 TABLET BY MOUTH TWICE DAILY active Not Available Not Available No t Available [place] 7.5 mg-325 mg tablet Take 1 tablet every 6 hours by oral route. 10/30 completed Not Available Not Available Not Available methylpredn isolone 4 mg tablets in a dose pack Take by oral route as per package insert active Not Available Not Available No t Available Cipro 250 mg tablet Take 1 tablet every 12 hours by oral route for 10 days. 09/17 completed Not Available Not Available Not Available ropinirole 5 mg tablet TAKE 1 TABLET BY MOUTH EVERY DAY AT BEDTIME 07/05 completed Not Available Not Available Not Available topiramate 100 mg tablet TK ONE T PO QAM AND 2 TS PO QPM 06/23 completed Not Available Not Available Not Available fluticasone propionate 50 mcg/actuati on nasal spray,suspe nsion active Not Available Not Available Not Available metronidazo le 0.75 % topical gel active Not Available Not Available Not Available griseofulvi n ultramicros ize 250 mg tablet TAKE 1 TABLET BY MOUTH EVERY DAY 06/20 completed Not Available Not Available Not Available amoxicillin 500 mg-potassiu m clavulanate 125 mg tablet TAKE 1 TABLET BY MOUTH TWICE A DAY 12/13 completed Not Available Not Available Not Available ropinirole 4 mg tablet TAKE 1 TABLET BY MOUTH EVERY DAY AT BEDTIME 07/05 completed Not Available Not Available Not Available clindamycin phosphate 1 % topical solution 12/19 completed Not Available Not Available Not Available Restasis 0.05 % eye drops in a dropperette INSTILL 1 GTT INTO BOTH EYES BID 10/02 completed Not Available Not Available Not Available Multivitami n 50 Plus tablet Take 1 tablet every day by oral route. 2021 active Not Available Not Available Not Avai lable metronidazo le 1 % topical gel APPLY TOPICALLY TO THE AFFECTED AREA TWICE DAILY active Not Available Not Available No t Available pregabalin 75 mg capsule 12/23 completed Not Available Not Available Not Available melatonin 12/19 completed Not Available Not Available Not Available methotrexat e 25 mg tablets, 5 weekly 10/02 completed Not Available Not Available Not Available Lopressor 25 mg one bid 2013 active Not Available Not Available Not Avai lable potassium 20 meq 06/20 completed Not Available Not Available Not Available multivitami n daily 10/02 completed Not Available Not Available Not Available lidocaine (PF) 10 mg/mL (1 %) injection solution In office injection administe red by the provider 12/19 completed [facility]: [phone]- [phone]- [phone] Not Available Not Available Not Available Vagifem 10 mcg vaginal tablet I ONE T VAG QD FOR 7 DAYS THEN DECREASE TO TWICE WEEKLY active Not Available Not Available No t Available metronidazo le 1 % topical gel with pump TESS A SMALL AMOUNT D TO FACE active Not Available Not Available No t Available Multi Vitamin 12/19 completed Not Available Not Available Not Available potassium chloride ER 20 mEq tablet,exte nded release TAKE 2 TABLETS BY MOUTH IN THE MORNING AND 2 TABS BY MOUTH IN THE EVENING 12/18 completed Not Available Not Available Not Available Fluvirin 3557-7305 45 mcg (15 mcg x 3)/0.5 mL intramuscul ar suspension ADM 0.5ML UTD active Not Available Not Available No t Available Fish Oil 1,000 mg (120 mg-180 mg) capsule Take by oral route. 2020 active Not Available Not Available Not Avai lable Vitals Date Recorded Body height Oxygen saturation Oxygen saturation in Arterial blood by Pulse oximetry Heart rate Respiratory rate Body temperature Body weight Systolic blood pressure Diastolic blood pressure Provider Name and Address Organization Details Last Updated DateTime 2 163.83 cm 99 % 99 % 64 /min 12 /min 96.5 [degF] 961976. 06 g 130 mm[Hg] 80 mm[Hg] Not Available [employer] 3 06:13:25 Date Recorded Body height Body mass index (BMI) Body weight Body temperature Oxygen saturation Oxygen saturation in Arterial blood by Pulse oximetry Systolic blood pressure Diastolic blood pressure Provider Name and Address Organization Details Last Updated DateTime 3 163.83 cm 38.9 kg/m2 628449. 25 g 97 [degF] 97 % 97 % 120 mm[Hg] 70 mm[Hg] Holly Arauz MA [place] - [place] [employer] [facility] 3 10:38:09 Date Recorded Body height Body mass index (BMI) Body weight Heart rate Oxygen saturation Oxygen saturation in Arterial blood by Pulse oximetry Systolic blood pressure Diastolic blood pressure Provider Name and Address Organization Details Last Updated DateTime 3 163.83 cm 37.2 kg/m2 21889.3 2 g 54 /min 98 % 98 % 124 mm[Hg] 72 mm[Hg] Rhonda Landry CMA [employer] 3 10:40:07 Date Recorded Body height Body mass index (BMI) Body weight Heart rate Body temperature Oxygen saturation Oxygen saturation in Arterial blood by Pulse oximetry Systolic blood pressure Diastolic blood pressure Provider Name and Address Organization Details Last Updated DateTime 4 163.83 cm 39.5 kg/m2 087553. 61 g 75 /min 97 [degF] 98 % 98 % 122 mm[Hg] 78 mm[Hg] Carlyn Mcdermottari [employer] 4 10:38:51 Date Recorded Body height Body mass index (BMI) Body weight Heart rate Body temperature Oxygen saturation Oxygen saturation in Arterial blood by Pulse oximetry Systolic blood pressure Diastolic blood pressure Provider Name and Address Organization Details Last Updated DateTime 4 163.83 cm 40.1 kg/m2 297955. 39 g 81 /min 97 [degF] 98 % 98 % 120 mm[Hg] 72 mm[Hg] JENNY Roberts [employer] [facility] [employer] 4 14:33:09 Social History Question Answer Notes LastModified by Organizat ion Details LastModified Time Tobacco Smoking Status Never Smoker Not Available [facility] 11/20/2022 06:10:30 Do You Have An Advance Directive? Yes [id number].[id number] Information not available 11/20/2022 What Is Your Level Of Alcohol Consumption? Occasional MIGRATION.31698 [id number] Information not available 11/20/2022 Are You Blind Or Do You Have Difficulty Seeing? No MIGRATION.10228 68463 Information not available 11/20/2022 In The 14 Days Before Symptom Onset, Have You Had Close Contact With A Laboratory-confir med COVID-19 While That Case Was Ill? No MIGRATION.45027 [id number] Information not available 11/20/2022 In The 14 Days Before Symptom Onset, Have You Had Close Contact With A Person Who Is Under Investigation For COVID-19 While That Person Was Ill? No MIGRATION.02744 [id number] Information not available 11/20/2022 Are You Deaf Or Do You Have Serious Difficulty Hearing? No MIGRATION.07277 79261 Information not available 11/20/2022 What Type Of Diet Are You Following? REGULAR MIGRATION.73923 [id number] Information not available 11/20/2022 Have There Been Any Changes To Your Family Or Social Situation? No MIGRATION.55600 46856 Information not available 11/20/2022 What Is The Fluoride Status Of Your Home? Unknown MIGRATION.79543 [id number] Information not available 11/20/2022 Are There Any Guns Present In Your Home? No MIGRATION.57010 93739 Information not available 11/20/2022 Do You Use Insect Repellent Routinely? No MIGRATION.64232 30151 Information not available 11/20/2022 Where Do You Live? [place] MIGRATION.89173 10901 Information not available 11/20/2022 Guns Present In The Home? No [email or web address] Information not available 06/25/2023 Are You Able To Care For Yourself? Yes [email or web address] Information not available 06/25/2023 Are You Blind Or Do Yo Have Difficulty Seeing? No [email or web address] Information not available 06/25/2023 Are You Deaf Or Do You Have Serious Difficulty Hearing? No [email or web address] Information not available 06/25/2023 Live Alone Of With Others? Alone [email or web address] Information not available 06/25/2023 Do You Have A Medical Power Of Project Economist? Yes MIGRATION.13927 22370 Information not available 11/20/2022 What Was The Date Of Your Most Recent Tobacco Screening? 07/05/2024 [email or web address] Information not available 07/05/2024 Do You Have Any Pets? No MIGRATION.52591 90212 Information not available 11/20/2022 Do You Use Your Seat Belt Or Car Seat Routinely? Yes MIGRATION.17284 23843 Information not available 11/20/2022 Do You Have Smoke And Carbon Monoxide Detectors In Your Home? Yes MIGRATION.38118 23784 Information not available 11/20/2022 Are You Passively Exposed To Smoke? No MIGRATION.11667 78540 Information not available 11/20/2022 Are There Any Smokers In Your House? No MIGRATION.44694 76445 Information not available 11/20/2022 Do You Use Sunscreen Routinely? Yes MIGRATION.82410 54923 Information not available 11/20/2022 Have You Recently Traveled Abroad? No MIGRATION.19283 44287 Information not available 11/20/2022 Do You Have Any Dietary Restrictions? No MIGRATION.24745 31866 Information not available 11/20/2022 Do You Or Have You Ever Used Any Other Forms Of Tobacco Or Nicotine? No MIGRATION.79463 30711 Information not available 11/20/2022 Sex: Unknown Functional Status Question Answer Note LastModified by Organizat ion Details LastModified Time Do you have difficulty walking or climbing stairs? Yes [email or web address] Information not available 07/05/2024 Do you have transportation difficulties? No MIGRATION.[id number] 026 Information not available 11/20/2022 Are you able to walk? YESWOREST MIGRATION.6680110 026 Information not available 11/20/2022 Do you have difficulty doing errands alone? No MIGRATION.9718038 026 Information not available 11/20/2022 Are you able to care for yourself? Yes MIGRATION.[id number] 026 Information not available 11/20/2022 Do you have difficulty dressing or bathing? No MIGRATION.9980429 026 Information not available 11/20/2022 What is your exercise level? Occasional MIGRATION.[id number] 026 Information not available 11/20/2022 Mental Status Question Answer Note LastModified by Organizat ion Details LastModified Time Do you have difficulty concentrating, remembering or making decisions? No [id number].[id number] Information not available 11/20/2022 Family History Nothing Reported Notes:Mother 80 fro m complications of COPD Father 91 [place] prostate Three sisters all living and in good health No brothers Medical History Condition Response NERVE DISEASE N BLINDNESS N RHEUMATIC FEVER N KIDNEY STONES N BLADDER PROBLEMS N MRSA N OTHER # 1 N POLIO N LUNG DISEASE/DISORDER N HISTORY OF DRUG ABUSE N RADIATION / CHEMOTHERAPY N COPD N Other # 2 N BLOOD DISEASES N EAR OR HEARING PROBLEMS N MUMPS N SHINGLES N BOWEL PROBLEMS N DEPRESSION (INCLUDING POST ) N STROKE/TIA N ULCERS N BENIGN PROSTATIC HYPERPLASIA N MEASLES N HYPOTENSION N MYOCARDIAL INFARCTION N OBESITY N GERD/NAUSEA N ANEURYSM N URINARY/BLADDER/KIDNEY PROBLEMS N CORONARY ARTERY DISEASE (CAD) N ADDICTION CONCERNS N ENDOMETRIOSIS N Impotence N USE OF BLOOD THINNERS N SKIN PROBLEMS N GASTROINTESTINAL DISORDER N PERIPHERAL VASCULAR DISEASE N MUSCLE,JOINT OR BONE PROBLEMS N GASTROINTESTINAL BLEEDING N BLOOD CLOTS N ASTHMA N CATARACTS N ERECTILE DYSFUNCTION N VARICOSITIES N GI PROBLEMS N Low Testosterone N INFERTILITY N AIDS/HIV N CHEMOTHERAPY / RADIATION N LIVER DISEASE N MALE HYPOGONADISM N HYPERTENSION N Deficiency N TOURETTE'S N ANXIETY DISORDER N BLOOD TRANSFUSION N ANEMIA/BLOOD DISORDER N CHRONIC EAR INFECTIONS N BRONCHITIS N TUBERCULOSIS N GLAUCOMA N FOOT PROBLEM N DIVERTICULITIS N CHICKENPOX N SLEEP APNEA N INFECTIOUS DISEASE N HEART ARRHYTHMIA N PROSTATE N INSOMNIA N HIGH CHOLESTEROL / HYPERLIPIDEMIA N HYPERTHYROIDISM N EYE PROBLEMS N EDEMA N CHRONIC PAIN SYNDROME N HYPOTHYROIDISM N CAROTID BLOCKAGE N CONSTIPATION N BACK / NECK PROBLEMS N HAVE YOU BEEN HOSPITALIZED OR SEEN IN [facility] IN THE PAST YEAR ? N ATHEROSCLEROSIS N BREAST PROBLEMS N DIALYSIS N ECZEMA N OSTEOPOROSIS N ARTHRITIS Y NO SIGNIFICANT PAST MEDICAL HISTORY N APPENDICITIS N DIABETES, TYPE N BAD TEETH N ENT N HEARTBURN / REFLUX Y AUTISM SPECTRUM DISORDER (ASD) N HEPATITIS / LIVER DISEASE N GOUT N SLEEP DISORDER N ALZHEIMER'S DISEASE N Brain Problems N HERPES N DEMENTIA N HEADACHES/MIGRAINES Y SEIZURES/EPILEPSY N VASCULAR DISEASE N PACEMAKER N Blood Disorder N DIZZINESS N HEART DISEASE/HEART PROBLEMS N KIDNEY DISEASE N MULTIPLE SCLEROSIS N CARDIAC ARRHYTHMIA N CANCER: SPECIFY N ATRIAL FIBRILLATION N Gall Stones N PULMONARY EMBOLISM N AUTOIMMUNE DISEASE N Gynecological History Statement/Question Response Date of Last Colonoscopy 09/01/2018 Obstetrics History GPAL:G 0 P 0 0 0 0 Immunizations Vaccine Type Date Status Note Provider Nam e and Address Organization Details Recorded Time SARS-COV-2 (COVID-19) vaccine, UNSPECIFIED 2 completed Not Available Counts include 234 beds at the [facility] 11/20/2022 06:18:35 Influenza, split virus, trivalent, preservative 0 completed Not Available Counts include 234 beds at the [facility] 11/20/2022 06:18:35 zoster, unspecified formulation 0 completed Not Available Counts include 234 beds at the [facility] 11/20/2022 06:18:35 zoster, unspecified formulation 9 completed Not Available Counts include 234 beds at the [facility] 11/20/2022 06:18:35 SARS-COV-2 (COVID-19) vaccine, UNSPECIFIED 1 completed Not Available Counts include 234 beds at the [facility] 11/20/2022 06:18:36 SARS-COV-2 (COVID-19) vaccine, UNSPECIFIED 1 completed Not Available Counts include 234 beds at the [facility] 11/20/2022 06:18:36 Pneumococcal conjugate PCV 13 0 completed Not Available Counts include 234 beds at the [facility] 11/20/2022 06:18:36 Past Encounters Encounter ID Performer Location Encounter Start Date Encounter Closed Date Diagnosis/Indication Diagnosis SNOMED-CT Code Diagnosis ICD10 Code [id number] [facility] [address] Tam[address] Rod[address]uez[address] [address] 12/13/2020 00:00:00 12/13/2020 12:07:18 [id number] [facility] 24 [address] Tam[address] Rodríguez[address] [id number] 04/19/2021 00:00:00 04/19/2021 15:09:21 [id number] [facility] 24 [address] Rod[address]uez[address] [address] 06/20/2021 00:00:00 06/20/2021 11:39:03 [id number] [facility] [address] [address] 12/19/2021 00:00:00 12/19/2021 11:41:44 [id number] [facility] [address] [address] 06/19/2022 00:00:00 06/19/2022 10:57:04 [id number] Candi Graves MD [facility] 24 [address] [address] 12/18/2022 10:21:51 12/18/2022 17:48:39 Essential hypertension 11357636 I10 Rheumatoid arthritis 698 34791 M06.9 Restless legs 15175519 G 25.81 Cervical radiculopathy 64705541 M54.12 Obesity 195435536 E66.9 Vitamin D deficiency 347 59509 E55.9 [id number] Candi Graves MD [facility] [address] [address] 06/25/2023 10:35:42 06/25/2023 11:11:21 Adult health examination 914518247 Z00.00 Screening for disorder 465926103 Z13.9 Gastroesop hageal reflux disease 542516719 K21.9 Essential hypertension 65103655 I10 Obese class II 456638164 1 95943 E66.9 Rheumatoid arthritis 698 45875 M06.9 Vitamin D deficiency 347 85306 E55.9 [id number] Candi Graves MD [facility] [address] [id number] 12/24/2023 10:33:09 12/24/2023 11:03:54 Essential hypertension 76134929 I10 Gastroesop hageal reflux disease 296105298 K21.9 Obese class II 227053118 1 97383 E66.9 Rheumatoid arthritis 698 62222 M06.9 [id number] Candi Graves MD [facility] Internal Med [facility] [address] [address] 07/05/2024 14:25:33 07/05/2024 14:59:41 Adult health examination 171799738 Z00.00 Screening for disorder 412429096 Z13.9 Essential hypertension 04396038 I10 Gastroesop hageal reflux disease 916013709 K21.9 Rheumatoid arthritis 698 38375 M06.9 Obesity 985033423 E66.9 Restless legs 08277721 G 25.81 Health Concerns Section Related Observation LastModified by Organization Detai ls LastModified Time None Recorded Concern Status LastModified by Organization Details LastModified Time None Recorded Advance Directives Directive Y: Payers Encounter Date Sequence Insurance Name Policy Number Policy Pham Covered Member ID Pham Member ID Guarantor Name 12/18/2022 1 MEDICARE-[place] (MEDICARE) Mary A Noud [id number] Mary A Noud 12/18/2022 2 [employer] (MEDICARE SUPPLEMENT) Mary A Noud [id number] Mayr A Noud 06/25/2023 1 MEDICARE-[place] (MEDICARE) Mary A Noud [id number] Mary A Noud 06/25/2023 2 [employer] (MEDICARE SUPPLEMENT) Mary A Noud [id number] Mary A Noud 12/24/2023 1 MEDICARE[place] (MEDICARE) Mary A Noud [id number] 3 Mary A Noud 12/24/2023 2 [employer] (MEDICARE SUPPLEMENT) Mary Child Noud [id number] Mary Child Noud 07/05/2024 1 [place] Mary Child Noud [id number] 3 Mary Child Noud 07/05/2024 2 [employer] (MEDICARE SUPPLEMENT) Mary Child Noud [id number] Mary Child Noud Notes Date Note Type Note Provider Name and Address Organization Details Recorded Time 3 text/htm l Patient Name: Mary NascimentoDate Of Service: Friday ( 12.18.2022 ): 1955 Age: 67 Vital Signs:Blood Pressure: Sitting Rt. Arm 120/70Pulse: Sitting 74 /min and RegularRespirations: 12Height 64.5 in or 1.6 mWeight 230 lb or 104.3 kgBMI 38.9Temperature: 97 F or 36.1 CPulse Oximetry: 97 % at rest on no oxygen Chief Complaint: Addressed in HPI Problems or conditions discussed in the HPI were the only ones reviewed during the encounter.Only social and family history addressed in the HPI were reviewed during this encounter. Attendant(s): None Constitutional and Systemic Symptoms: none Medication Reconciliation: from medication list. History of Present Illness #1. Essential Hypertension: Stage: Stage I Interval Neurological Complaints no headaches, dizziness, weakness, visual changes, ataxia and aphasia. No shortness of breath, orthopnea or cardiovascular symptoms. No other symptoms related to end organ damage. Pressure has been under excellent control. Currently normal. No other end organ symptoms or findings. Therapy reviewed regarding management of hypertension and includes salt restriction and Hydrochlorothiazide and Metoprolol Tartrate. #2. Hx of rheumatoid arthritis. Currently stable. No additional joint swelling or deformities noted. Synovial thickening as noted below. Physical activity status unchanged. Followed by [employer]: Yes. Tolerating medications well. Medications currently consistent of Meloxicam, Methotrexate and Plaquenil. #3. Restless Leg Syndrome: Hx of the restless leg syndrome. Currently taking Ropinirole Symptoms are improved. #4. Cervical radiculopathy manifested by pain and discomfort in the left side of the neck. Has had radiographic studies done recently of the cervical spine which shows considerable spondylosis. Rheumatology recommended the patient see Orthopedics but much sure what they are going to do to improve this. Would consider doing an MRI of the neck without contrast to further assess the anatomical changes whether not there is any cervical myelopathy.: #5. Hx of obesity. Currently mildly obese. Has tried numerous dietary support and supplements with no benefit. Instructed on the health consequences of the obese status particularly cancer diabetes and heart disease. Potential candidate for bariatric surgery: No. Wishes to be evaluated by Dietary: No and was offered to be evaluated by dietary.Medication List Reviewed and Reconciled 3Plaquenil 200 MG (TABLET - ORAL) One Twice A DayLasix 40 MG (TABLET - ORAL) Once DailyMetronidazole 1% (GEL - TOPICAL) Once Daily To Affected AreaMultivitamin As Directed Once DailyRestasis 0.05% (EMULSION - OPHTHALMIC) One Drop BidPotassium Chloride 20 MEQ (TABLET, EXTENDED RELEASE - ORAL) Two In Am And Two In PmMetoprolol Tartrate 100 MG (TABLET - ORAL) One Twice A DayHydrochlorothiazide 25 MG (TABLET - ORAL) One Twice A DayRopinirole 3 MG (TABLET - ORAL) Total 9 Mg DailyAllopurinol 300 MG (TABLET - ORAL) Once DailyFish Oil Caps DailyMethotrexate 2.5 MG TABLET Four Tablets WeeklFolic Acid 1 MG TABLET One DailyPilocarpine 5 MG TABLET, FILM COATED TidMeloxicam 15 MG TABLET One DailyADRs List Reviewed 12/18/2022[facility] Facial SwellingVaccination and Silpnscjnvqa7891-68 Covid Booster Kvhqbc1785-87 Covid Mwnulja3606-28 Prevnar 292474-03 Jsttmqjty0102-80 Wlccpgnp9118-29 Pneumovax (high Tqum5558-48 Tetanus BoosterSurgical HistoryLap Cholecystectomy, Vaginal Hysterectomy, AppendectomyPreventative Testing Confirmed by Our Fywqdqv7907/12/2022 DEXA SCAN (NORMAL)12/21/2021 ALBUMIN 3.8 G/DL11/22/2021 MAMMOGRAM / LETTER [id number]/11/2018 COLONOSCOPY (5 YEARS) /02/2016 CT THORAXSocial HistoryDoes not smoke or drink. 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 This represents approximately a 4.3% change in weight. Weight change attributable to lifestyle changes. Vital Signs:Blood Pressure: Sitting Rt. Arm 124/72Pulse: Sitting 54 /min and RegularRespiratory Rate: 12Height 64.5 in or 1.6 mWeight 220 lb or 99.8 kgBMI 37.2Pulse Oximetry: 98 % at rest on no oxygen Chief Complaint: Addressed in HPI Problems or conditions discussed in the HPI were the only ones reviewed during the encounter.Only social and family history addressed in the HPI were reviewed during this encounter. A significant, separate E/M service was performed to evaluate the current and new problems. Attendant(s): NoneConstitutional and Systemic Symptoms:none Medication Reconciliation: from medication list. History of Present Illness Reviewed the findings of the preventative health visit. Addressed all areas with the patient, patient's family or caregivers. Preventative examinations and testing immunizations - vaccinations, colonic neoplasm screening and mammograms all reviewed and ordered where patient was amenable to the recommendations. Cognitive function was normal. Depression addressed and where necessary medications were adjusted or instituted. End of life and living will briefly discussed with patient and where these can be filled out and legally executed. Other blood and imaging studies were ordered if considered necessary. Other recommendations may be found in the encounter note. #1. Essential Hypertension: Stage: normal Interval Neurological Complaints no headaches, dizziness, weakness, visual changes, ataxia, aphasia and apraxia. No shortness of breath, orthopnea or cardiovascular symptoms. No other symptoms related to end organ damage. Pressure has been under excellent control. Currently normal. No other end organ symptoms or findings. Therapy reviewed regarding management of hypertension and includes salt restriction and Hydrochlorothiazide and Metoprolol Tartrate. #2. Hx of esophageal reflux currently stable. Hx of Complications: none The severity, duration and intensity of symptoms have improved. Frequency: infrequent Treatment consists medications taken on no regular basis. Current therapy includes no medication. There has been no nausea, eructation, vomiting, hematemesis, dysphagia, velopharyngeal insufficiency and odynophagia. No change in he frequency or intensity of symptoms. Has had no melena. Has had no hematemesis. Discuss the possibility of trying to reduce the frequency of the use of any PPI inhibitors or H2 antagonist to see if symptoms can be controlled with last intensive therapy #3. Hx of rheumatoid arthritis. Currently stable. No additional joint swelling or deformities noted. Synovial thickening as noted below. Physical activity status unchanged. Followed by [employer]: Yes. Tolerating medications well. Medications currently consistent of Lyrica, Meloxicam, Methotrexate and Plaquenil. #4. Hx of obesity. Currently Class 2 Obesity BMI 35-39.99. Has tried numerous dietary support and supplements with no benefit. Instructed on the health consequences of the obese status particularly cancer - diabetes and heart disease. Discussed new modalities of weight loss including GLP-1 medications that are used to treat diabetes. Potential candidate for bariatric surgery: No. Wishes to be evaluated by Dietary: No and was offered to be evaluated and instructed by gas turbine mechanic on weight loss diet.Medication List Reviewed and Reconciled 3Plaquenil 200 MG (TABLET - ORAL) One Twice A DayLasix 40 MG (TABLET - ORAL) Once DailyMetronidazole 1% (GEL - TOPICAL) Once Daily To Affected AreaMultivitamin As Directed Once DailyRestasis 0.05% (EMULSION - OPHTHALMIC) One Drop BidPotassium Chloride 20 MEQ (TABLET, EXTENDED RELEASE - ORAL) Two In Am And Two In PmMetoprolol Tartrate 100 MG (TABLET - ORAL) One Twice A DayHydrochlorothiazide 25 MG (TABLET - ORAL) One Twice A DayRopinirole 3 MG (TABLET - ORAL) Total 9 Mg DailyAllopurinol 300 MG (TABLET - ORAL) Once DailyFish Oil Caps DailyMethotrexate 2.5 MG TABLET Four Tablets WeeklFolic Acid 1 MG TABLET One DailyPilocarpine 5 MG TABLET, FILM COATED TidMeloxicam 15 MG TABLET One DailyLyrica 75 MG CAPSULE QhsADRs List Reviewed 06/25/2023[facility] Facial SwellingVaccination and Wsywbeuvleyi3562-38 Covid Booster Dwjwdc1382-89 Covid Tdvmepy5227-94 Prevnar 876929-54 Ekjaxxcpf1932-42 Eepctpus4509-32 Pneumovax (high Ntdp9459-87 Tetanus BoosterSurgical HistoryLap Cholecystectomy, Vaginal Hysterectomy, AppendectomyPreventative Testing Confirmed by Our Agihdli5202/28/2023 MAMMOGRAM ALBUMIN 4.0 G/DL07/12/2022 DEXA SCAN (NORMAL)09/04/2021 LETTER SGVBHENIYFTIS44/11/2018 [address]COPY ([address] THORAXSocial HistoryDoes not smoke or drink. 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 This represents approximately a 6.4% change in weight. Weight change attributable to lifestyle changes. Vital Signs:Blood Pressure: Sitting Rt. Arm 122/78Pulse: Sitting 75 /min and RegularRespiratory Rate: 12Height 64.5 in or 1.6 mWeight 234 lb or 106.1 kgBMI 39.5Temperature: 97 F or 36.1 CPulse Oximetry: 98 % at rest on no oxygen Chief Complaint: Addressed in HPI Problems or conditions discussed in the HPI were the only ones reviewed during the encounter.Only social and family history addressed in the HPI were reviewed during this encounter. Attendant(s): NoneConstitutional and Systemic Symptoms:none Medication Reconciliation: from medication list. History of Present Illness #1. Essential Hypertension: Stage: Stage I Interval Neurological Complaints no headaches, dizziness, weakness, visual changes, ataxia, aphasia and apraxia. No shortness of breath, orthopnea or cardiovascular symptoms. No other symptoms related to end organ damage. Pressure has been under excellent control. Currently normal. No other end organ symptoms or findings. Therapy reviewed regarding management of hypertension and includes Hydrochlorothiazide and Metoprolol Tartrate. #2. Hx of esophageal reflux currently stable. Hx of Complications: none The severity, duration and intensity of symptoms have improved. Frequency: most meals Treatment consists medications taken on no regular basis. Current therapy includes no medication. There has been no nausea, eructation, vomiting, hematemesis, dysphagia, velopharyngeal insufficiency and odynophagia. No change in he frequency or intensity of symptoms. Has had no melena. Has had no . Discussed use of H2 antagonists NA. #3. Hx of rheumatoid arthritis. Currently stable. No additional joint swelling or deformities noted. Synovial thickening as noted below. Physical activity status unchanged. Followed by [employer]: Yes. Tolerating medications well. Medications currently consistent of Lyrica, Meloxicam, Methotrexate and Plaquenil. #4. Hx of obesity. Currently Class 2 Obesity BMI 35-39.99. Has tried numerous dietary support and supplements with no benefit. Instructed on the health consequences of the obese status particularly cancer - diabetes and heart disease. Discussed new modalities of weight loss including GLP-1 medications that are used to treat diabetes. Potential candidate for bariatric surgery: Yes but does no wish to pursue. Wishes to be evaluated by Dietary: No and was offered to be evaluated and instructed by gas turbine mechanic on weight loss diet. Active Medication ListPlaquenil 200 MG (TABLET - ORAL) One Twice A DayLasix 40 MG (TABLET - ORAL) Once DailyMetronidazole 1% (GEL - TOPICAL) Once Daily To Affected AreaMultivitamin As Directed Once DailyRestasis 0.05% (EMULSION - OPHTHALMIC) One Drop BidPotassium Chloride 20 MEQ (TABLET, EXTENDED RELEASE - ORAL) Two In Am And Two In PmMetoprolol Tartrate 100 MG (TABLET - ORAL) One Twice A DayHydrochlorothiazide 25 MG (TABLET - ORAL) One Twice A DayRopinirole 3 MG (TABLET - ORAL) Total 9 Mg DailyAllopurinol 300 MG (TABLET - ORAL) Once DailyFish Oil Caps DailyMethotrexate 2.5 MG TABLET Four Tablets WeeklFolic Acid 1 MG TABLET One DailyPilocarpine 5 MG TABLET, FILM COATED TidMeloxicam 15 MG TABLET One DailyLyrica 75 MG CAPSULE Qhs Adverse Drug Reactions ReviewedSulfa Drugs Facial Swelling Vaccination and Ckjvmwxctoin3377-90 Covid Booster Ljnlrv0446-36 Covid Djaonne1983-19 Prevnar 13 Ce0229-71 Qvdfatmxg5160-92 Smzpnshv3509-16 Yghcwsxeb5759-05 Tetanus Booster Surgical Albaouw3556-09 Lap Zxetbmtgarqmjim8856-27 Vaginal Mwhidyncmyhy1947-75 Appendectomy Preventative Caizjms1509/12/2023 COLONOSCOPY ( 5 YEARS ) ALBUMIN 3.8 G/DL N002/28/2023 MAMMOGRAM 41 DEXA SCAN (NORMAL)09/04/2021 MGCETYLWNYJLF38/06/2016 CT THORAX Social HistoryDoes not smoke or drink. 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 This represents approximately a 1.3% change in weight. Weight change attributable to lifestyle changes. Vital Signs:Blood Pressure: Sitting Rt. Arm 120/72Pulse: Sitting 87 /min and RegularRespiratory Rate: 16Height 64.5 in or 1.6 mWeight 237 lb or 107.5 kgBMI 40.0Temperature: 97 F or 36.1 CPulse Oximetry: 98 % at rest on no oxygen Chief Complaint: Addressed in HPI Problems or conditions discussed in the HPI were the only ones reviewed during the encounter.Only social and family history addressed in the HPI were reviewed during this encounter. A significant, separate E/M service was performed to evaluate the current and new problems. Attendant(s): NoneConstitutional and Systemic Symptoms:none Medication Reconciliation: from medication list. History of Present Illness Reviewed the findings of the preventative health visit. Addressed all areas with the patient, patient's family or caregivers. Preventative examinations and testing immunizations - vaccinations, colonic neoplasm screening and mammograms all reviewed and ordered where patient was amenable to the recommendations. Cognitive function was normal. Depression addressed and where necessary medications were adjusted or instituted. End of life and living will briefly discussed with patient and where these can be filled out and legally executed. Other blood and imaging studies were ordered if considered necessary. Other recommendations may be found in the encounter note. #1. Essential Hypertension: Stage: normal Interval Neurological Complaints no headaches, dizziness, weakness, visual changes, ataxia, aphasia and apraxia. No shortness of breath, orthopnea or cardiovascular symptoms. No other symptoms related to end organ damage. Pressure has been under excellent control. Currently normal. No other end organ symptoms or findings. Therapy reviewed regarding management of hypertension and includes salt restriction and Hydrochlorothiazide and Metoprolol Tartrate. #2. Hx of esophageal reflux currently stable. Hx of Complications: none The severity, duration and intensity of symptoms have improved. Frequency: most meals Treatment consists medications taken on intermittent basis. Current therapy includes no medication. There has been no nausea, eructation, vomiting, hematemesis, dysphagia, velopharyngeal insufficiency and odynophagia. No change in he frequency or intensity of symptoms. Has had no melena. Has had no . Discussed use of H2 antagonists NA. #3. Hx of rheumatoid arthritis. Currently stable. No additional joint swelling or deformities noted. Synovial thickening as noted below. Physical activity status unchanged. Followed by [employer] Router: Yes. Tolerating medications well. Medications currently consistent of Methotrexate and Plaquenil. #4. Hx of obesity. Currently Class 3 Obesity SC > 40. Has tried numerous dietary support and supplements with no benefit. Instructed on the health consequences of the obese status particularly cancer - diabetes and heart disease. Discussed other modalities of weight loss no . Potential candidate for bariatric surgery: No. Wishes to be evaluated by Dietary: No and was offered to be evaluated and instructed by gas turbine mechanic on weight loss diet.#5. Restless leg syndrome currently taking gabapentin along with some ropinirole. Clinic is doing reasonably well. No interval complaints of any new problems. Is in the process of weaning down from the ropiniroleActive Medication ListPlaquenil 200 MG (TABLET - ORAL) One Twice A DayLasix 40 MG (TABLET - ORAL) Once DailyMetronidazole 1% (GEL - TOPICAL) Once Daily To Affected AreaMultivitamin As Directed Once DailyRestasis 0.05% (EMULSION - OPHTHALMIC) One Drop BidPotassium Chloride 20 MEQ (TABLET, EXTENDED RELEASE - ORAL) Two In Am And Two In PmMetoprolol Tartrate 100 MG (TABLET - ORAL) One Twice A DayHydrochlorothiazide 25 MG (TABLET - ORAL) One Twice A DayRopinirole 2 MG TABLET 2 Tabs Every Afternoon, 3 Tab Qhs, Reduce 1 Tab T4bcmYgdczosuzcg 300 MG (TABLET - ORAL) Once DailyFish Oil Caps DailyMethotrexate 2.5 MG TABLET Four Tablets WeeklFolic Acid 1 MG TABLET One DailyPilocarpine 5 MG TABLET, FILM COATED TidMeloxicam 15 MG TABLET One DailyGabapentin 800 MG TABLET 1/2 Tab Qhs Adverse Drug Reactions ReviewedSulfa Drugs Facial Swelling Vaccination and Immunization( ) 2006-07 PNEUMOVAX(X) 2002-03 TETANUS BOOSTER( ) 2019- SHINGRIX( ) 2020-07 PREVNAR 13 GC(X) 2020-07 INFLUENZA( ) 2020- COVID MODERNA(X) 2021-09 COVID BOOSTER PFIZER Surgical Vkuvfuj4646-79 Lap Vfahrllyvlqkunr8739-77 Vaginal Viyxjusjoxhe3762-61 Appendectomy Preventative Testing( ) 05/12/2024 Albumin 3.7 G/DL( ) 03/02/2024 Mammogram 03/02/2026( ) 03/02/2024 DEXA Scan (Normal)( ) 02/11/2024 Optometry( ) 09/12/2023 Colonoscopy ( 5 Years ) 09/12/2028( ) 09/04/2021 Ophthalmology( ) 08/27/2016 CT Thorax Social HistoryDoes not smoke or drink. 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
--- OUTSIDE RECORDS SUMMARY | 2024-09-02 17:09 | XMS_ITS | Continuity of Care Document ---
Author Organization [place] [employer] [facility], [facility] Internal [facility] [address] [facility] [address] [place] [address] Care Team Providers Care Intake Worker Name Role Phone CANDI GRAVES Primary Care Provider CANDI GRAVES Referring Provider Assessment No assessment recorded. Plan of Treatment Reminders Order Date Submit Date Provider Last Modified By Organization Details Last Modified Time Details Appointments None recorded. Lab CBC w/ auto diff [email or web address] [facility], [address] [place], [address], 4 16:52:03 CMP, serum or plasma [email or web address] [facility], [address] [place], [address], 4 16:52:04 PTH (parathyr oid hormone), intact, serum or plasma [email or web address] [facility], [address] [place], [address], 4 16:52:04 phosphoru s, serum or plasma [id number] [facility], [address] [place], [address], 4 16:52:04 vitamin D, 25-hydrox y, total, serum [email or web address] [facility] - [facility], [address] [place], [address], 16:52:04 Referral None recorded. Procedures None recorded. Surgeries None recorded. Imaging None recorded. Medication Orders None recorded. Patient TargetsNo targets recorded. Patient Instructions Encounter Date Encounter Id Patient Instructions Last Modified By Organization Details Last Modified Time 07/05/2024 [id number] dementia rating scale-2* [email or web address] Not available 07/05/2024 14:54:53 alcohol misuse* [email or web address] Not available 07/05/2024 14:54:53 depression screening* [email or web address] Not available 07/05/2024 14:54:54 Timed Up and Go test (TUG)* [email or web address] Not available 07/05/2024 14:54:53 multi-dimensiona l health assessment questionnaire* [email or web address] Not available 07/05/2024 14:54:54 Personalized a lt Plan and Screening Recommendations Advance Directives - Do you have one? Yes Advance Directives - Do we have your advance directive on file in your health record? Yes Primary Prevention/Interven tion (prevents or decreases the chance of common diseases from occurring) Smoking Risk: Non Smoker Alcohol Misuse Screening: Negative Weight: Appropriate Overwei ght continue your current weight loss efforts try to lose 5% of your body weight try to lose 10% of your body weight Physical activity: Nutrition: Good Average Fall Risk (screened today): Low Vaccines Pneumococcal: Ordered Recommended today Recommended today, but you have declined No further needed Influenza: Ordered Recommended today Chronic Disease Risks Stroke: Low Risk Intermediate Risk I have no recommendations Act andrae diagnosis, Continue current treatment plan Heart Attack: Low risk Intermediate Risk I have no recommendations Act andrae diagnosis, Continue current treatment plan Clogging of the Arteries: Low risk I have no recommendations Diabetes: Low Risk I have no recommendations Secondary Prevention/Interven tion (detects treatable diseases before they may cause symptoms, disability, or ) Breast Cancer Screening with mammogram: Cervical/Uterine/Ov fidel Cancer Screening: Osteoporosis Screening: Date Screening Last Performed: Colon Cancer Screening: Colonoscopy Date Screening Last Performed: ____ Eye Disease Screening: Dementia Risk: Low I have no recommendations Depression Screening: Negative [email or web address] Not available 07/05/2024 14:45:55 Medicare wellnes s evaluation risk assessment stable. Follow-up hypertension, [...] voice recognition software. Occasional wrong-word or ? czzhd-n-dggb? substitutions may have occurred due to the inherent limitations of voice recognition software. Read the chart carefully and recognize, using context, where substitutions have occurred. [email or web address] Not available 07/05/2024 14:54:28 Reason for Referral None Reported. Results Created Date Observation Date Name Description Value Unit Range Abnormal Flag Note LastModifiedBy Organization Detail LastModifiedTime Result Notes None recorded. Problems Name Problem SNOMED Code Status Onset Date Resolution Date Notes Provider Name and Address Organization Details Recorded Time Edema of lower extremity 130027285 Active 2016 Not Available [employer] 3 06:14:20 Senile osteoporos is 92603478 Active 2021 Not Available [employer] 3 06:14:21 Nonvenomou s insect bite of trunk with infection 16231767 Active Not Available [employer] 3 06:14:21 Cellulitis and abscess of buttock 084815677 Active Not Available [employer] 3 06:14:21 Bite of nonvenomou s arthropod Active Not Available [employer] 3 06:14:21 Gastroesop hageal reflux disease 766697428 Active Not Available [facility] 3 06:14:21 Restless legs 45095710 Active Not Available [employer] 3 06:14:21 Vitamin D deficiency 29287749 Active 2021 Not Available [facility] 3 06:14:21 Depressive disorder 40814523 Active Not Available [facility] 3 06:14:21 Migraine 69542379 Active Not Available [facility] 3 06:14:21 Illness 28924119 Active Not Available [facility] 3 06:14:21 Vertigo 819651089 Active Not Available [facility] 3 06:14:21 Midline cystocele 380715369 Active Not Available [facility] 3 06:14:21 Atrophic vaginitis 99356487 Active Not Available [facility] 3 06:14:21 Essential hypertensi on 29668300 Active 2021 Not Available [facility] 3 06:14:21 Female stress incontinen ce 22056872 Active Not Available [facility] 3 06:14:21 Acute maxillary sinusitis 44540439 Active Not Available [facility] 3 06:14:21 Sj??gren's syndrome 56024529 Active Not Available [facility] 3 06:14:22 Cervical radiculopa thy 07095128 Active 2022 Candi Graves MD [address], [place], [address] , [employer] 3 10:54:13 Obesity 268404467 Active 2022 Candi Graves MD [address], [place], [address] , [employer] 3 10:55:17 Obese class II 3832319396356 05 Active 2022 Candi Graves MD [address], [place], [address] , [employer] 3 10:58:29 Rheumatoid arthritis 65166256 Active 2022 Candi Graves MD [address], [place], [address] , [employer] 3 10:59:42 Problem Notes None recorded. Procedures Surgical History Date Name Laterality Status Provider Name and Address Organization Details Recorded Time 07/05/20 24 Medicare Wellness CPT Code, subsequent completed Nedra Villaseñor RN [facility] 07/05/2024 14:38:53 06/25/20 23 Medicare Wellness CPT Code, subsequent completed Nedra Villaseñor RN [place] [facility] [place] [employer] Anita Margarita 06/25/2023 10:49:04 09/01/20 18 Date of Last Colonoscopy completed Not Available [facility] 11/20/2022 06:10:38 Imaging Results None recorded. Procedure Notes None recorded. Medical Equipment None Reported. Allergies Allergen ID Allergen Name Allergen Category Reaction Reaction Severity Criticality Documentation Date Start Date Code Code System Note Provider Name and Address Organization Details Recorded Time 21748 Substance with sulfonami de structure and antibacte rial mechanism of action (substanc e) medicatio n other Not available Not available 11/20/2022 81097 8003 SNOMED facia l swell ing Not Available [facility] 06:18:43 Medications Name Sig Start Date Stop [...] 2014 active Not Available Not Available Not Avai lable amitriptyli ne 50 mg tablet TAKE 1 [...] administe red by the provider 12/19 completed [facility]: 0003- 0494- 20 Not Available Not Available [...] Not Available Not Available No t Available [place] 7.5 mg-325 mg tablet Take 1 tablet [...] administe red by the provider 12/19 completed [facility]: 0409- 4276- 17 Not Available Not Available [...] Not Available Not Available Not Available Fluvirin 5733-0407 45 mcg (15 mcg x 3)/0.5 mL intramuscul ar suspension ADM 0.5ML UTD active Not Available Not Available No t Available Fish Oil 1,000 mg (120 mg-180 mg) capsule Take by oral route. 2020 active Not Available Not Available Not Avai lable Vitals Date Recorded Body height Body mass index (BMI) Body weight Heart rate Body temperature Oxygen saturation Oxygen saturation in Arterial blood by Pulse oximetry Systolic blood pressure Diastolic blood pressure Provider Name and Address Organization Details Last Updated DateTime 4 163.83 cm 40.1 kg/m2 630231. 39 g 81 /min 97 [degF] 98 % 98 % 120 mm[Hg] 72 mm[Hg] JENNY Roberts [place] [facility] [place] [employer] 4 14:33:09 Social History Question Answer Notes LastModified by Organizat ion Details LastModified Time Tobacco Smoking Status Never Smoker Not Available [facility] 11/20/2022 06:10:30 Do You Have An Advance Directive? Yes MIGRATION.19815 [id number] Information not available 11/20/2022 What Is Your Level Of Alcohol Consumption? Occasional MIGRATION.87793 02883 Information not available 11/20/2022 Are You Blind Or Do You Have Difficulty Seeing? No MIGRATION.62816 28334 Information not available 11/20/2022 In The 14 Days Before Symptom Onset, Have You Had Close Contact With A Laboratory-confir med COVID-19 While That Case Was Ill? No MIGRATION.26314 85193 Information not available 11/20/2022 In The 14 Days Before Symptom Onset, Have You Had Close Contact With A Person Who Is Under Investigation For COVID-19 While That Person Was Ill? No MIGRATION.15900 97611 Information not available 11/20/2022 Are You Deaf Or Do You Have Serious Difficulty Hearing? No MIGRATION.53655 82436 Information not available 11/20/2022 What Type Of Diet Are You Following? REGULAR MIGRATION.11707 26049 Information not available 11/20/2022 Have There Been Any Changes To Your Family Or Social Situation? No MIGRATION.14716 31304 Information not available 11/20/2022 What Is The Fluoride Status Of Your Home? Unknown MIGRATION.74400 08114 Information not available 11/20/2022 Are There Any Guns Present In Your Home? No MIGRATION.05113 73100 Information not available 11/20/2022 Do You Use Insect Repellent Routinely? No MIGRATION.65098 37410 Information not available 11/20/2022 Where Do You Live? [place] MIGRATION.31686 64830 Information not available 11/20/2022 Guns Present In The Home? No [email or web address] Information not available 06/25/2023 Are You Able To Care For Yourself? Yes [email or web address] Information not available 06/25/2023 Are You Blind Or Do Yo Have Difficulty Seeing? No [email or web address] Information not available 06/25/2023 Are You Deaf Or Do You Have Serious Difficulty Hearing? No [email or web address] Information not available 06/25/2023 Live Alone Of With Others? 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 Yes MIGRATION.84693 09739 Information not available 11/20/2022 What Was The Date Of Your Most Recent Tobacco Screening? 07/05/2024 [email or web address] Information not available 07/05/2024 Do You Have Any Pets? No MIGRATION.59317 50658 Information not available 11/20/2022 Do You Use Your Seat Belt Or Car Seat Routinely? Yes MIGRATION.35108 95669 Information not available 11/20/2022 Do You Have Smoke And Carbon Monoxide Detectors In Your Home? Yes MIGRATION.87911 54682 Information not available 11/20/2022 Are You Passively Exposed To Smoke? No MIGRATION.05149 42516 Information not available 11/20/2022 Are There Any Smokers In Your House? No MIGRATION.89024 96232 Information not available 11/20/2022 Do You Use Sunscreen Routinely? Yes MIGRATION.29026 32367 Information not available 11/20/2022 Have You Recently Traveled Abroad? No MIGRATION.53981 18032 Information not available 11/20/2022 Do You Have Any Dietary Restrictions? No MIGRATION.85161 76563 Information not available 11/20/2022 Do You Or Have You Ever Used Any Other Forms Of Tobacco Or Nicotine? No MIGRATION.09162 80350 Information not available 11/20/2022 Sex: Unknown Functional Status Question Answer Note LastModified by Organizat ion Details LastModified Time Do you have difficulty walking or climbing stairs? Yes [email or web address] Information not available 07/05/2024 Do you have transportation difficulties? No MIGRATION.0331491 026 Information not available 11/20/2022 Are you able to walk? YESWOREST MIGRATION.6260535 026 Information not available 11/20/2022 Do you have difficulty doing errands alone? No MIGRATION.2532608 026 Information not available 11/20/2022 Are you able to care for yourself? Yes MIGRATION.6517031 026 Information not available 11/20/2022 Do you have difficulty dressing or bathing? No MIGRATION.2086374 026 Information not available 11/20/2022 What is your exercise level? Occasional MIGRATION.0208802 026 Information not available 11/20/2022 Mental Status Question Answer Note LastModified by Organizat ion Details LastModified Time Do you have difficulty concentrating, remembering or making decisions? No MIGRATION.[id number] 6 Information not available 11/20/2022 Family History [...] ARTERY DISEASE (CAD) N ADDICTION CONCERNS N Impotence N ENDOMETRIOSIS N USE OF BLOOD THINNERS N SKIN [...] GLAUCOMA N FOOT PROBLEM N DIVERTICULITIS N SLEEP APNEA N CHICKENPOX N INFECTIOUS DISEASE N PROSTATE N HEART ARRHYTHMIA N INSOMNIA N HIGH CHOLESTEROL / HYPERLIPIDEMIA N EYE PROBLEMS N HYPERTHYROIDISM N EDEMA N CHRONIC PAIN SYNDROME N HYPOTHYROIDISM N CONSTIPATION N CAROTID BLOCKAGE N BACK / NECK PROBLEMS N HAVE YOU BEEN HOSPITALIZED OR SEEN IN [facility] IN THE PAST YEAR ? N ATHEROSCLEROSIS N BREAST PROBLEMS N DIALYSIS N ECZEMA N OSTEOPOROSIS N ARTHRITIS Y NO SIGNIFICANT PAST MEDICAL HISTORY N APPENDICITIS N DIABETES, TYPE N BAD TEETH N ENT N HEARTBURN / REFLUX Y AUTISM SPECTRUM DISORDER (ASD) N HEPATITIS / LIVER DISEASE N GOUT N SLEEP DISORDER N ALZHEIMER'S DISEASE N Brain Problems N DEMENTIA N HERPES N SEIZURES/EPILEPSY N HEADACHES/MIGRAINES Y VASCULAR DISEASE N PACEMAKER N Blood Disorder N DIZZINESS N HEART DISEASE/HEART PROBLEMS N KIDNEY DISEASE N MULTIPLE SCLEROSIS N CANCER: SPECIFY N CARDIAC ARRHYTHMIA N ATRIAL FIBRILLATION N Gall Stones N PULMONARY EMBOLISM N AUTOIMMUNE DISEASE N Gynecological History Statement/Question Response Date of Last Colonoscopy 09/01/2018 Obstetrics History GPAL:G 0 P 0 0 0 0 Immunizations Vaccine Type Date Status Note Provider Nam e and Address Organization Details Recorded Time SARS-COV-2 (COVID-19) vaccine, UNSPECIFIED 2 completed Not Available [facility] 11/20/2022 06:18:35 Influenza, split virus, trivalent, preservative 0 completed Not Available [facility] 11/20/2022 06:18:35 zoster, unspecified formulation 0 completed Not Available [facility] 11/20/2022 06:18:35 zoster, unspecified formulation 9 completed Not Available [facility] 11/20/2022 06:18:35 SARS-COV-2 (COVID-19) vaccine, UNSPECIFIED 1 completed Not Available [facility] 11/20/2022 06:18:36 SARS-COV-2 (COVID-19) vaccine, UNSPECIFIED 1 completed Not Available [facility] 11/20/2022 06:18:36 Pneumococcal conjugate PCV 13 0 completed [facility] Available [facility] 11/20/2022 06:18:36 Past Encounters Encounter ID Performer Location Encounter Start Date Encounter Closed Date Diagnosis/Indication Diagnosis SNOMED-CT Code Diagnosis ICD10 Code [id number] Candi Graves MD [facility] [address] [facility] [address] [place] [address] 07/05/2024 14:25:33 07/05/2024 14:59:41 Adult health examination 713657700 Z00.00 Screening for disorder 359282409 Z13.9 Essential hypertension 98878509 I10 Gastroesop hageal reflux disease 747915085 K21.9 Rheumatoid arthritis 698 91999 M06.9 Obesity 436748491 E66.9 Restless legs 57455587 G 25.81 Health Concerns Section Related Observation LastModified by Organization Detai ls LastModified Time None Recorded Concern Status LastModified by Organization Details LastModified Time None Recorded Payers Encounter Date Sequence Insurance Name Policy Number Policy Pham Covered Member ID Pham Member ID Guarantor Name 07/05/2024 1 [place] Mary Child Noud [id number] 3 Mary A Noud 07/05/2024 2 [employer] (MEDICARE SUPPLEMENT) Mary A Noud [id number] Mary A Noud Notes Date Note Type Note Provider Name and Address Organization Details Recorded Time 4 text/html Patient Name: Mary VeronicaDate Of Service: Friday ( 07.05.2024 ): 1955 [...] below. Physical activity status unchanged. Followed by Private Duty Lpn: Yes. Tolerating medications well. Medications currently consistent of Methotrexate and Plaquenil. #4. Hx of obesity. Currently Class 3 Obesity ME > 40. Has tried numerous dietary support and supplements with no benefit. Instructed on the health consequences of the obese status particularly cancer - diabetes and heart disease. Discussed other modalities of weight loss no . Potential candidate for bariatric surgery: No. Wishes to be evaluated by Dietary: No and was offered to be evaluated and instructed by fisheries diver on weight loss diet.#5. Restless leg syndrome [...] Afternoon, 3 Tab Qhs, Reduce 1 Tab R0dicBzzmdkufhqb 300 MG (TABLET - ORAL) Once DailyFish Oil Caps DailyMethotrexate 2.5 MG TABLET Four Tablets WeeklFolic Acid 1 MG TABLET One DailyPilocarpine 5 MG TABLET, FILM COATED TidMeloxicam 15 MG TABLET One DailyGabapentin 800 MG TABLET 1/2 Tab Qhs Adverse Drug Reactions ReviewedSulfa Drugs Facial Swelling Vaccination and Immunization( ) 2005- PNEUMOVAX(X) 2001- TETANUS BOOSTER( ) 2019- SHINGRIX( ) 2020-07 PREVNAR 13 GC(X) 2020-07 INFLUENZA( ) 2020- COVID MODERNA(X) 2021-09 COVID BOOSTER PFIZER Surgical Samhyzg6533-16 Lap Lvljbfjoddqphki3054-56 Vaginal Qkidflpzbteu3757-53 Appendectomy Preventative Testing( ) 05/12/2024 Albumin 3.7 G/DL( ) 03/02/2024 Mammogram 03/02/2026( ) 03/02/2024 DEXA Scan (Normal)( ) 02/11/2024 Optometry( ) 09/12/2023 Colonoscopy ( 5 Years ) 09/12/2028( ) 09/04/2021 Ophthalmology( ) 08/27/2016 CT Thorax Social HistoryDoes not smoke or drink. 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, [address], [place], [address], [place] [facility] 07/05/2024 14:55:00 OBGyn Episode No OBEpisode recorded.
[2024-09-02 17:25] VITALS: BP 133/63; PULSE 81; RESP 20; TEMP 36.3; O2SAT 100
--- NOTE | 2024-09-02 19:49 | ED.FALL ---
HPI - Fall General Chief Complaint: Fall Stated Complaint: restless legs, fall Time Seen by Provider: 09/02/24 19:04 History of Present Illness HPI Narrative: 69-year-old female with a past medical history of chronic restless leg syndrome currently being managed by her neurologist with adjustments to both her ropinirole and gabapentin therapy. She is presenting with her daughter bedside revised collateral formation. Patient states that she fell about 2 days prior after she was having too much vessels list in her legs and fell and hit her chin on the counter. Did not lose consciousness and does not take any blood thinners. She states that for last day and half she has been having worsening restless legs in the bilateral lower extremities and she feels significant akathisia and cannot sit still for more than 30 seconds. Her daughter provides collateral formation states that she has been acting slightly more confused lately and sometimes intermittently talking nonsense and seeing and hearing things that are not there. Patient herself states she feels okay without any headache or vision changes but mostly is concerned about her legs being restless. She did fall onto her right knee and complains of knee and hip pain as well. No new neuropathy, paresthesias, weakness, ataxia, chest pain, shortness a breath, fever, chills. Previous to this week she has otherwise been in her normal state of health. Tried calling her neurologist to get options with relief of her restless legs but they have not called her back and so she proceeded to the ER for evaluation. Related Data Home Medications ?Medication ?Instructions ?Recorded ?Confirmed ?Last Taken ?Type allopurinol 300 mg tablet 300 mg PO DAILY 05/31/21 09/12/23 Unknown History carboxymethyl 0.5 %-glycerin 1 1 drp EACH EYE QID 05/31/21 09/12/23 Unknown History %-polysorb 80 0.5 %-PF eye dropperette (Refresh Optive Jalil-3 (PF)) furosemide 40 mg tablet 40 mg PO DAILY PRN Edema 05/31/21 09/12/23 Unknown History hydrochlorothiazide 25 mg tablet 25 mg PO BID 05/31/21 09/12/23 Unknown History hydroxychloroquine 200 mg tablet 200 mg PO BID 05/31/21 09/12/23 Unknown History melatonin 10 mg capsule 10 mg PO QHS PRN Insomnia 05/31/21 09/12/23 Unknown History metoprolol tartrate 100 mg tablet 100 mg PO BID 05/31/21 09/12/23 09/12/23 06:00 History metronidazole 1 % topical gel 1 applic topical DAILY 05/31/21 09/12/23 Unknown History multivitamin 1 tablet PO DAILY 05/31/21 09/12/23 Unknown History omega-3 fatty acids 1,000 mg 1,000 mg PO BID 05/31/21 09/12/23 Unknown History capsule (Fish Oil Concentrate) potassium chloride 20 mEq 40 meq PO BID 05/31/21 09/12/23 Unknown History tablet,extended release betamethasone dipropionate 0.05 % 1 applic topical DAILY PRN Rash 03/13/22 09/12/23 Unknown History topical ointment folic acid 1 mg tablet 1 mg PO DAILY 05/21/23 09/12/23 Unknown History pilocarpine HCl 5 mg tablet 5 mg PO TID 05/21/23 09/12/23 Unknown History methotrexate sodium 2.5 mg tablet 20 mg PO WEEKLY 06/15/24 Unknown History Allergies Allergy/AdvReac Type Severity Reaction Status Date / Time terbinafine Allergy Intermediate Rash Verified 06/15/24 14:12 griseofulvin Allergy Unknown Rash Verified 06/15/24 14:12 Sulfa (Sulfonamide Allergy Unknown unknown Verified 06/15/24 14:12 Antibiotics) Review of Systems Review of Systems: As reviewed above in HPI [facility] Past Medical History Medical History Gout Rheumatoid arthritis Arthritis Hypertension Migraine Surgical History Surgical History Hx of cholecystectomy H/O hysterectomy for benign disease Hx of breast reduction, elective Hx of appendectomy Family History Family History Other Colon cancer Social History Social History Social History: never smoker Smoking status: Never smoker Alcohol intake: current Drinks per week: 2 Alcohol use details: occasionally Substance use: never Substance use type: does not use Lack of Transportation: No Lack of Food: Never True Current Housing: I Have Housing Concerned About Future Housing: No Difficulty Paying Gas/Electric Bills: No Difficulty Paying for Meds: No Currently Unemployed: No Education: Bachelor's Degree Difficulty w/ Childcare or Family Care: No Living arrangements: alone Occupation/Education: occupation Gender identity (if verbalized by the patient): Female Spiritual care concerns: No Exam Narrative: GENERAL: Restless in appearance benign any acute distress, conversing in full sentences, walking back and forth in the room not able sit still HEAD: [Normocephalic, evidence of bruising in the anterior inferior portion of the chin left side without any step-offs deformities, no trismus. EYES: [PERRLA and EOMI.] ENT: Nares clear, no rhinorrhea or epistaxis. Mucous membranes moist. NECK: Supple. Full range of motion without any restriction, no cervical spinal tenderness or deformity CHEST: [Clear to auscultation. No respiratory distress.] HEART: [Regular rate and rhythm]. No murmur heard. [Normal peripheral pulses.] ABDOMEN: [Soft, nondistended], [nontender], [No rigidity or guarding] EXTREMITIES: Normal range of motion. [No edema.] SKIN: Warm, dry, no rash. NEURO: [No focal deficits]. Alert and oriented [x3.] Full strength and sensation throughout both arms and legs, no sensory changes or deficits. No ataxia, ambulating unassisted. PSYCH: [Normal mood and affect.] Course Vital Signs Vital signs: Vital Signs Temperature 36.3 C L 09/02/24 17:25 Pulse Rate 81 09/02/24 17:25 Respiratory Rate 20 09/02/24 17:25 Blood Pressure 133/63 09/02/24 17:25 Pulse Oximetry 100 09/02/24 17:25 Oxygen Delivery Room Air 09/02/24 17:25 Temperature 36.3 C L 09/02/24 17:25 Pulse Rate 100 09/03/24 00:11 Respiratory Rate 20 09/03/24 00:11 Blood Pressure 135/66 09/03/24 00:11 Pulse Oximetry 98 09/03/24 00:11 Oxygen Delivery Room Air 09/02/24 17:25 MDM - Fall MDM Narrative Medical decision making narrative: 69-year-old female with history of significant restless leg syndrome currently being managed outpatient with neurologist with titration is to her ropinirole and gabapentin therapy. For last 36 hours she has been having worsening for restless leg syndromes and also did have a fall with head trauma with evidence of bruising to her chin without loss of consciousness. Does not take any blood thinners. She states she also hit her right knee and is complain of the and hip pain. She is able to a without any ataxic or antalgic gait. Clinically she appears well not any acute distress but is very restless and ambulating throughout the room not able to lie still. Vital signs are reassuring without any tachycardia, fever, hypoxia, significant blood pressure elevations. She has full strength and sensation throughout both arms and legs and NIH stroke scale of 0 presently. Considerations presently for worsening restless leg syndrome, akathisia, closed head injury, concussion, urinary tract infection or metabolic encephalopathy. Daughter states that she has been confused intermittently in complaining of things like visual and auditory hallucinations while in the room in the ED. patient otherwise appears well does not appear confused or having hallucinations when I am evaluating her. Blood was obtained including CBC, CPK, CMP, ethanol level, drug screen, urinalysis, x-rays of the pelvis and knee as well as CT of the brain without contrast. Drug screen and coags were ordered. She was given symptomatic treatment of her restlessness with Compazine, Benadryl, fluid bolus and reassess thereafter. Patient was frequent re-evaluated and did require several additional doses of different medications to assist in her restless legs. She was provided benztropine as she was having worsening akathisia and 5 mg of Valium with improvement. Patient's diagnostic results are otherwise reassuring with no leukocytosis, anemia. CPK without any elevations. Normal PT PTT and INR. Electrolytes within normal limits without any acidosis, normal potassium, magnesium with 1.8 slightly low. CPK negative, LFTs normal. Urinalysis without any signs of infection or ketosis. Negative urine drug screen, negative alcohol level. CT scan of her head was independently reviewed by myself and also interpreted by Radiology without any acute process. Normal aging brain per Radiology interpretation. Knee x-ray hip x-ray with moderate osteoarthritis but no acute traumatic injuries. I spoke to patient's neurologist Dr. Perea over the phone for consultation given patient's pretty significant RLS. He has seen the patient previously and try to get her to cut down on the ropinirole and up her gabapentin. We went over patient's clinical assessment, imaging results and plan of care going forward. He states that this is expected as she is been weaning herself off of ropinirole hand she is very sensitive to the medication and recommendations going forward are to completely stop ropinirole and help her gabapentin dose to 1200 mg b.i.d. anything provider additional Klonopin up to 0.5 mg 1-2 times here in the emergency department. She was given additional dose of gabapentin and Klonopin at recommendations by neurologist and re-evaluated frequently. Maintaining good vital signs and did not have any significant complications of the additional medications. Had some improvement and was able to rest for several hours. I discussed the case with the hospitalist Dr. Khan as family wanted me to see if there is any possibility for admission. Patient has no admitting diagnosis at this time and no clinical locations as she needs to be hospitalized as there is no interventions that need to be done or further investigations and need to be conducted and her neurologist is already aware and recommending outpatient follow-up. This information was relayed back to the family members and patient was discharged with the recommendations from the neurologist to upper gabapentin to 1200 mg 2-3 times daily and to stop taking her ropinirole entirely. Medical Records Attestation: I reviewed the patient's medical records. Lab Data Attestation: I reviewed the patient's lab results. 09/02/24 20:24 09/02/24 20:24 Labs: Lab Results 09/02/24 09/02/24 Range/Units 20:24 20:48 WBC 5.7 (4.5-10.0) K/mm3 RBC 4.02 L (4.2-5.4) M/mm3 Hgb 13.2 (12.0-15.0) g/dL Hct 38.4 (37.0-47.0) % MCV 95.5 (80-100) fl MCH 32.8 (26-34) pg MCHC 34.4 (32-36) g/dl RDW 14.2 (11.5-14.5) % Plt Count 174 (150-375) k/mm3 MPV 9.1 (7.4-10.4) fl Immature Gran % (Auto) 0.2 (0-0.5) % Neut % (Auto) 50.7 (45.5-73.1) % Lymph % (Auto) 25.7 (18.3-44.2) % Logan % (Auto) 17.7 H (2.6-8.5) % Eos % (Auto) 4.6 H (0-4.4) % Baso % (Auto) 1.1 (0.2-1.2) % Lymph # (Auto) 1.45 (0.9-3.2) K/mm3 Logan # (Auto) 1.0 H (0.1-0.6) K/mm3 Eos # (Auto) 0.3 (0-0.3) K/mm3 Baso # (Auto) 0.1 (0.0-0.1) K/mm3 Abs Immat Gran (auto) 0.01 (0.00-0.031) K/mm3 Absolute Neuts (auto) 2.9 (1.3-6.7) K/mm3 Absolute Nucleated RBC 0.000 (0.0-0.012) K/mm3 Nucleated RBC % 0.0 (0.0-0.2) % PT 13.8 (11.1-14.7) Seconds INR 1.0 APTT 29.0 (22.3-36.8) Seconds Sodium 134 L (137-145) mmol/L Potassium 3.7 (3.4-5.0) mmol/L Chloride 99 (98-107) mmol/L Carbon Dioxide 32 H (22-30) mmol/L Anion Gap 3 L (4-12) mmol/L BUN 17 (7-17) mg/dL Creatinine 1.10 H (0.7-1.0) mg/dL Estim Creat Clear Calc 51 ml/min Estimated GFR 49 L (59 - ) Glucose 81 (65-110) mg/dL Calcium 9.1 (8.4-10.2) mg/dL Magnesium 1.8 (1.6-2.3) mg/dL Total Bilirubin 0.6 (0.2-1.3) mg/dL AST 47 H (14-36) U/L ALT 35 (6-35) U/L Alkaline Phosphatase 91 (38-126) U/L Total Creatine Kinase 123 (30-135) U/L Total Protein 7.0 (6.3-8.2) g/dL Albumin 4.1 (3.5-5.1) g/dL Urine Color Yellow (Yellow) Urine Appearance Clear (Clear) Urine pH 6.5 (5.0-9.0) Ur Specific [place] 1.017 (1.001-1.035) Urine Protein Negative (Negative) mg/dL Urine Glucose (UA) Negative (Negative) mg/dL Urine Ketones Negative (Negative) mg/dL Ur Blood (Man) Negative (Negative) Urine Nitrate Negative (Negative) Urine Bilirubin Negative (Negative) Urine Urobilinogen 0.2 (<2.0) mg/dL Leukocyte Esterase Rfl Negative (Negative) SHAGGY/UL Urine Opiates Screen Negative (Negative) Urine Methadone Screen Negative (Negative) Ur Barbiturates Screen Negative (Negative) Ur Phencyclidine Scrn Negative (Negative) Ur Amphetamine Screen Negative (Negative) U Benzodiazepines Scrn Negative (Negative) Urine Cocaine Screen Negative (Negative) U Cannabinoids Screen Negative (Negative) Ethyl Alcohol < 10 (<10) mg/dL Imaging Data Attestation: I personally reviewed and interpreted this imaging study as follows: My impression: Impressions Head CT 09/02/24 20:04 IMPRESSION: 1. Normal aging brain. Knee X-Ray 09/02/24 20:20 IMPRESSION: 1. Moderate right knee osteoarthritis. Pelvis X-Ray 09/02/24 20:21 IMPRESSION: 1. Mild osteoarthritis of the hips. Discharge Plan Discharge Clinical Impression: Restless legs syndrome Patient Disposition: Home, Self-Care Condition: Stable Instructions: Antibiotic Form, Restless Legs Syndrome (ED) Additional Instructions: Your laboratory studies are very reassuring. Given her significant restless legs syndrome I did reach out to your neurologist as he has evaluated you previously. His recommendations were to completely stop taking Ropinorol and increase her gabapentin to 1200 mg 2-3 times daily and have close outpatient follow-up. Call in the AM to schedule. No indications for hospital admission at this time. Return at any time if there is any other new or worsening concerns. Patient Language: Armenian Prescriptions: No Action hydrochlorothiazide 25 mg tablet 25 mg PO BID hydroxychloroquine 200 mg tablet 200 mg PO BID furosemide 40 mg tablet 40 mg PO DAILY PRN (Reason: Edema) allopurinol 300 mg tablet 300 mg PO DAILY multivitamin Tablet 1 tablet PO DAILY omega-3 fatty acids [Fish Oil Concentrate] 1,000 mg capsule 1,000 mg PO BID metoprolol tartrate 100 mg tablet 100 mg PO BID potassium chloride 20 mEq tablet extended release 40 meq PO BID melatonin 10 mg capsule 10 mg PO QHS PRN (Reason: Insomnia) Refresh Optive Jalil-3 (PF) 0.5-1-0.5 % dropperette 1 drp EACH EYE QID metronidazole 1 % gel 1 applic topical DAILY betamethasone dipropionate 0.05 % ointment 1 applic topical DAILY PRN (Reason: Rash) pilocarpine HCl 5 mg tablet 5 mg PO TID folic acid 1 mg tablet 1 mg PO DAILY methotrexate sodium 2.5 mg tablet 20 mg PO WEEKLY ropinirole 2 mg tablet 2 mg PO BID Qty: 180 6RF Rx Instructions: take 2 tablets in the afternoon and 3 tablets at bedtime later on try to reduce the dose at a rate of 1 tablet every 2 weeks if possible gabapentin 800 mg tablet 800 mg PO QHS Qty: 90 6RF Rx Instructions: start half tablet at bedtime increase to 1 tablet at bedtime after 1 week may increase further up to half to 1 tablet 2 to 3 times a day Follow-up/Referrals: Star,Fidencio Blandon MD [Primary Care Provider] - Time of Disposition: 02:14
[2024-09-02 20:30] LABS: Basophils Absolute Auto 0.1 K/mm3 (0.0-0.1); Basophils Percent Auto 1.1 % (0.2-1.2); Eosinophils Absolute Auto 0.3 K/mm3 (0-0.3); Eosinophils Percent Auto 4.6 % (0-4.4); Hematocrit 38.4 % (37.0-47.0); Hemoglobin 13.2 g/dL (12.0-15.0); Immature Granulocyte Absolute 0.01 K/mm3 (0.00-0.031); Immature Granulocyte Percent A 0.2 % (0-0.5); Lymphocytes Absolute Auto 1.45 K/mm3 (0.9-3.2); Lymphocytes Percent Auto 25.7 % (18.3-44.2); Mean Corpuscular HGB Conc 34.4 g/dl (32-36); Mean Corpuscular Hemoglobin 32.8 pg (26-34); Mean Corpuscular Volume 95.5 fl (80-100); Mean Platelet Volume 9.1 fl (7.4-10.4); Monocytes Percent Auto 17.7 % (2.6-8.5); Neutrophils Absolute Auto 2.9 K/mm3 (1.3-6.7); Neutrophils Percent Auto 50.7 % (45.5-73.1); Platelet Count Result 174 k/mm3 (150-375); Red Blood Count 4.02 M/mm3 (4.2-5.4); Red Cell Distribution Width 14.2 % (11.5-14.5); White Blood Count 5.7 K/mm3 (4.5-10.0)
[2024-09-02 20:39] LABS: Ethanol < 10 mg/dL (<10)
[2024-09-02 20:41] LABS: Prothrombin Time 13.8 Seconds (11.1-14.7)
[2024-09-02] MEDS: diphenhydrAMINE HCl INJ 50 MG/ML VIAL IV PUSH (20:49)
[2024-09-02] MEDS: SODIUM CHLORIDE 0.9% IV 1,000 ML 999 ML IV CONT (20:49)
[2024-09-02] MEDS: PROCHLORPERAZINE EDISYLATE 10 MG/2 ML VIAL IV PUSH (20:54)
[2024-09-02 21:10] LABS: Add Urine Microscopic? NO; Appearance Urine Clear (Clear); Bilirubin Urine Negative (Negative); Blood Urine Negative (Negative); Color Urine Yellow (Yellow); Glucose Urine UA Negative (Negative); Ketones Urine Negative (Negative); Leukocyte Esterase Ur Negative LEU/UL (Negative); Nitrate Urine Negative (Negative); Protein Urine Negative (Negative); Specific Grav Ur 1.017 (1.001-1.035); Urobilinogen Urine 0.2 mg/dL (<2.0); pH Urine 6.5 (5.0-9.0)
[2024-09-02 21:25] LABS: Barbiturate Screen Urine Negative (Negative); Benzodiazepines Screen Urine Negative (Negative)
[2024-09-02] MEDS: diazePAM INJ (*CRX) 10 MG/2 ML SYRINGE 5 MG IV PUSH (21:26)
[2024-09-02 21:28] LABS: Amphetamine Screen Urine Negative (Negative); Cannabinoid Screen Urine Negative (Negative); Cocaine Screen Urine Negative (Negative); Methadone Screen Urine Negative (Negative); Opiate Screen Urine Negative (Negative)
[2024-09-02 21:41] LABS: Phencyclidine Screen Urine Negative (Negative)
[2024-09-02 21:54] LABS: Alanine Aminotransferase 35 U/L (6-35); Albumin Level 4.1 g/dL (3.5-5.1); Alkaline Phosphatase 91 U/L (38-126); Anion Gap 3 mmol/L (4-12); Aspartate Amino Transferase 47 U/L (14-36); Bilirubin,Total 0.6 mg/dL (0.2-1.3); Blood Urea Nitrogen 17 mg/dL (7-17); Calcium 9.1 mg/dL (8.4-10.2); Carbon Dioxide 32 mmol/L (22-30); Chloride 99 mmol/L (98-107); Creatine Kinase 123 U/L (30-135); Estimated CRCL calculation 51 ml/min; Estimated Glomerular Filt Rate 49; Glucose 81 mg/dL (65-110); Magnesium 1.8 mg/dL (1.6-2.3); Potassium 3.7 mmol/L (3.4-5.0); Sodium 134 mmol/L (137-145)
--- NOTE | 2024-09-02 22:27 | PC.NURSE ---
Assumed care of pt after receiving report from SONIYA Alvarenga. @[phone]
[2024-09-02] MEDS: MAGNESIUM SULF 2 GM/WATER 50ML 2 GM/50 ML BAG IVPB (22:57)
[2024-09-02] MEDS: GABAPENTIN 400 MG CAPSULE 800 MG PO (22:58)
[2024-09-02] MEDS: BENZTROPINE MESYLATE INJ 1 MG/ML AMPUL IM (22:58)
[2024-09-03] MEDS: clonazePAM (*CRX) 0.5 MG TABLET PO (00:04)
[2024-09-03 00:11] VITALS: BP 135/66; PULSE 100; RESP 20; O2SAT 98
--- NOTE | 2024-09-03 02:18 | PC.NURSE ---
per EDP, patient will be allowed to stay and sleep for a few hours.
[2024-09-03 05:50] VITALS: BP 111/62; PULSE 79; RESP 19; O2SAT 95
== END 2024-09-03 05:50 | disposition home or self-care (01) ==
PROVIDERS: Emergency Provider Student in an Organized Health Care Education/Training Program; PCP Internal Medicine
DX: G25.81 Restless legs syndrome (principal); S00.83XA Contusion of other part of head, initial encounter; I10 Essential (primary) hypertension; M06.9 Rheumatoid arthritis, unspecified; M17.11 Unilateral primary osteoarthritis, right knee; M10.9 Gout, unspecified; M16.0 Bilateral primary osteoarthritis of hip; Z90.49 Acquired absence of other specified parts of digestive tract; Z90.710 Acquired absence of both cervix and uterus; Z79.899 Other long term (current) drug therapy; W01.198A Fall on same level from slipping, tripping and stumbling with subsequent striking against other object, initial encounter
CPT/HCPCS: 36415; 70450; 72170; 73562; 80053; 80307; 81003; 82077; 82550; 83735; 85025; 85610; 85730; 96361; 96365; 96372; 96375; 99284; A9270; J0515; J0780; J1200; J3360; J3475; J7030

== ENCOUNTER 2025-01-06 08:00 | Outpatient (RCR) | payer MEDICARE, SELFPAY ==
--- NOTE | 2024-12-09 17:44 | OPREHPOC ---
Outpatient Therapy Plan of Care This is a Multidisciplinary Plan of Care that may contain components documented by all disciplines (PT, OT, and ST.) PT Problem 1 PT Problem #1 Knowledge Deficit PT Goal 1 Goal / Goal Update [place] with HEP Target Visit 4 PT Goal 2 Goal / Goal Update Report no pain greater than 2/10 for 2 consecutive weeks Target Visit 8 PT Problem 2 PT Problem #2 Impaired Strength PT Goal 1 Goal / Goal Update 1. Improve saira hip abduction strength to 4/5 to improve lateral stability with gait and ADL performance Target Visit 8 PT Problem 3 PT Problem #3 Impaired Flexibility PT Goal 1 Goal / Goal Update 1. Demonstrate minimal piriformis restriction bilaterally for improve hip rotation symmetry Target Visit 8
--- NOTE | 2024-12-09 17:48 | PTOPEVAL1 ---
Assessment and note entered by Claudio Conte, PT Evaluation Information Assessment Status Evaluation Diagnosis Trochanteric bursitis right hip ICD-10 Condition Codes (PT) Pain in right hip M25.551 Onset 2022 Subjective Information Reports that she has fallen a couple of times but does not believe that injury occurred. She has had some bursitis off and on for a couple of years. She also has history of left ankle issues and feels she does not stride on it correctly. She occasionally has radiating pain down the leg but most of the pain is in lateral hip. She has occasional shooting pain on the front of the leg. She has surgery in 2003 for breast reduction and feels it was agitated during this. She has trouble laying on her back for an extended period of time . Reported Pain Level Pain Score 0: Self Report Assessment PT Clinical Summary Patient presents with signs and symptoms consistent with trochanteric bursitis. Demonstrates significant lateral up weakness with difficulty in single leg stability. Patient will benefit from skilled therapy to address these deficits through mobilization and stabilization of LE chain. Emphasis on gait normalization. Plan of Care Interventions Gait Training,Hot Pack/Cold Pack,Neuro Re- education,Therapeutic Activities,Therapeutic Exercise PT Services Indicated Yes Treatment Frequency and 2x/week for 8 visits Duration These treatments will address the objective and functional deficits as defined above. The patient will be advanced safely and appropriately in order for the patient to progress towards his/her prior level of function. Additional exercises will be introduced and as well as a comprehensive home exercise program upon discharge, if needed, ?to ensure carryover of functional gains achieved in the clinic. This treatment plan has been reviewed and agreement upon by the patient.
--- NOTE | 2025-01-06 08:57 | OPREHPOC ---
Outpatient Therapy Plan of Care This is a Multidisciplinary Plan of Care that may contain components documented by all disciplines (PT, OT, and ST.) PT Problem 1 PT Problem #1 Knowledge Deficit PT Goal 1 Goal / Goal Update [place] with HEP Target Visit 4 Progress Met PT Goal 2 Goal / Goal Update Report no pain greater than 2/10 for 2 consecutive weeks Target Visit 8 Progress Met PT Problem 2 PT Problem #2 Impaired Strength PT Goal 1 Goal / Goal Update 1. Improve saira hip abduction strength to 4/5 to improve lateral stability with gait and ADL performance Target Visit 8 Progress Met PT Problem 3 PT Problem #3 Impaired Flexibility PT Goal 1 Goal / Goal Update 1. Demonstrate minimal piriformis restriction bilaterally for improve hip rotation symmetry Target Visit 8 Progress Met
--- NOTE | 2025-01-06 08:57 | PTOPDC ---
Assessment and note entered by Claudio Conte, PT Evaluation Information Assessment Status Discharge Diagnosis Trochanteric bursitis right hip ICD-10 Condition Codes (PT) Pain in right hip M25.551 Onset 2022 Subjective Information Reports that overall she is significantly better. Pain is controlled and hips feel stronger and more stable. She has to felt need to use cane anymore. Feels comfortable with HEP. Reported Pain Level Pain Score 0: Self Report Assessment PT Clinical Summary Patient has met all goals for therapy and is suitable for discharge to [facility] at this time. Gait and strength improved and pain is controlled. Plan of Care PT Services Indicated Yes
== END 2025-01-06 09:29 | disposition home or self-care (01) ==
LOC: ANHPT 08:00
PROVIDERS: PCP Internal Medicine; Visit Provider Orthopaedic Surgery
DX: M70.61 Trochanteric bursitis, right hip (principal)
CPT/HCPCS: 97110; 97116; 97140; 97161; 97530

== ENCOUNTER 2025-07-05 12:38 | Outpatient (CLI) | payer MEDICARE, SELFPAY ==
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
--- OUTSIDE RECORDS SUMMARY | 2025-07-05 14:14 | XMS_ITS | Encounter Summary ---
Author Organization [facility] Address [address] [place] [address] Care Team Providers Care Cryptographic Clerk Name Role Phone Unavailable Primary Care Provider Unavailabl e Encounter Details Date Type Department Care Team (Late st Contact Info) Description 07/31/2021 Lab Requisition [facility] [address] [place] [address] Nghia Rodríguez MD [address] [place] [id number] Social History Tobacco Use Types Packs/Day Years Used Date Smoking Tobacco: Never Assessed Comments Unknown Sex and Gender Information Value Date Recorded Sex Assigned at Not on file Legal Sex Female 10:51 AM CDT Gender Identity Not on file Sexual Orientation Not on file documented as of this encounter Plan of Treatment Not on file documented as of this encounter Procedures Procedure Name Priority Date/Time Associated Diagnosis Comments DERMATOPATHOLOGY Routine 07/30/2021 3:33 AM ZOOKEEPER documented in this encounter Results * DERMATOPATHOLOGY (07/30/2021 3:33 AM ZOOKEEPER) Case Report Dermatopathology Report Case: [id number] Authorizing Provider: Nghia Rodríguez MD Collected: 07/30/2021 03:33 AM Ordering Location: [facility] Received: 07/31/2021 06:21 AM Pathologist: Sara Pereyra MD Specimen: Skin, right lower back 4:42 PM [facility] Final Diagnosis Specimen A. SKIN, right lower back: MILD SPONGIOTIC DERMATITIS (L30.8) (see microscopic description and comment) 4:42 PM [facility] at [address] [facility] Clinical History R/O drug eruption ACD, eczema. 4:42 PM [facility] Gross Description Specimen A: Received is one formalin filled container labeled with the patient's name and designated right lower back. The specimen consists of a shave biopsy measuring [id number]. Jar 0. 4:42 PM [facility] Microscopic Description Specimen A. SKIN, right lower back: There is focal parakeratosis and spongiosis of the epidermis. In the dermis there is a mainly superficial perivascular lymphoid infiltrate. Grocott's methenamine silver (GMS) stain fails to highlight fungal elements in the available sections. COMMENT: These histological findings are consistent with an eczematous dermatitis. Additional deeper sections were obtained and reviewed. 4:42 PM [facility] Disclaimer An external and internal positive and negative controls are appropriate for the histochemical, immunohistochemical and immunofluorescence stain(s) in this case (if any), except where stated explicitly. The performance characteristics of the stain(s) cited in this report were developed and its performance characteristic determined by the Dermatopathology Laboratory at [facility], directed by Dr. Danilo Lauren. These tests need not be, and therefore are not, approved by the [place] Food and Drug Administration. The tests are used for clinical purposes. Billing Codes Specimen Charges Stain Charges 35304 1 75657 1 4:42 PM [facility] Embedded Images 4:42 PM [facility] Pathology/Cytolo gy TISSUE SPECIMEN FROM SKIN / Unknown 07/30/2021 3:33 AM ZOOKEEPER 07/31/2021 6:21 AM ZOOKEEPER Nghia Rodríguez MD LAB - PATHOLOGY/CYTOLOGY ORDERAB LES Final Result DERMATOPATHOLOGY LABORATORY [facility] - Department of Dermatology [address], [address] [phone] documented in this encounter Visit Diagnoses Not on filedocumented in this encounter
--- OUTSIDE RECORDS SUMMARY | 2025-07-05 14:14 | XMS_ITS | Clinical Summary ---
Author Organization [facility] Address [address] [place] [address] Care Team Providers Care Percher Name Role Phone Unavailable Primary Care Provider Unavailabl e Source Comments [facility],non-owned Affiliates and Associated Physician Practices is amultiple site organization consisting of ambulatory clinics and hospital sitesin [place], [place], [place] and [place]. This disclosure is being madepursuant to the Care Everywhere program and may not contain all information available regarding this patient. Last updated 18.[facility] Social History Tobacco Use Types Packs/Day Years Used Date Smoking Tobacco: Never Assessed Comments Unknown Sex and Gender Information Value Date Recorded Sex Assigned at Not on file Legal Sex Female 10:51 AM CDT Gender Identity Not on file Sexual Orientation Not on file Plan of Treatment Health Maintenance Due Date Last Done Comments BONE DENSITY TESTING 1955 COLOGUARD (AGES 45-75) - COL ON CA SCREENING 1955 COLON MONITORING 1955 COLONOSCOPY - COLON CA SCREENING 1955 CT COLONOGRAPHY - COLON CA SCREENING 1955 Colorectal Cancer Screening 1955 FIT - COLON CA SCREENING 1955 FLEX SIG - COLON CA SCREENING 1955 LIPID TESTING 1955 MAMMOGRAM 1955 MEDICARE AWV 12 MONTHS 1955 HEPATITIS C SCREENING 04/06/1973 DTAP/TDAP/TD VACCINES (1 - Tdap) 1974 PNEUMOCOCCAL VACCINE 50+ (1 of 1 - PCV) 2005 ZOSTER VACCINE (1 of 2) 2005 DEPRESSION SCREENING 09/22/2024 COVID-19 VACCINE (1 - 2023-2 5 season) 2025 INFLUENZA VACCINE (#1) 2025 Respiratory Syncytial Virus (RSV) Vaccine Pt: or over 60 yrs (1 - 1-dose 75+ series) 2030 HEPATITIS B VACCINE Aged Out No longe r eligible based on patient's age to complete this topic HIB VACCINE Aged Out No longer eligi ble based on patient's age to complete this topic HPV VACCINE Aged Out No longer eligi ble based on patient's age to complete this topic MENINGOCOCCAL (Group B) VACC INE SHARED DECISION-MAKING Aged Out No longer eligibl e based on patient's age to complete this topic MENINGOCOCCAL GROUPS A/C/Y/W VACCINE Aged Out No longer eligible b ased on patient's age to complete this topic Insurance MEDICARE MEDICARE [facility] [place] [facility] [facility] R[facility]K BASIC [place] [address] MEDICARE [facility] [place] [facility] [facility] R[facility] BASIC [place] [address]
--- OUTSIDE RECORDS SUMMARY | 2025-07-05 14:14 | XMS_ITS | Data Portability ---
Author Organization [place] [facility], Main Office Address [address] [place] [address] Assessment No assessment recorded. Plan of Treatment Reminders Order Date Submit Date Provider Last Modified By Organization Details Last Modified Time Details Appointments None recorded. Lab vitamin D, 25-hydrox y, total, serum [id number] [place] [address] - Outpatient Lab, [address] [place], [address], 5 09:39:50 CBC w/ auto diff [id number] [place] [address] - Outpatient Lab, [address] [place], [address], 5 09:39:49 CMP, serum or plasma [id number] Outpatient Lab, [address] [place], [address], 5 09:39:49 lipid panel, serum [id number] Outpatient Lab, [address] [place], [address], 5 09:39:49 TSH, serum or plasma [id number] Outpatient Lab, [address] [place], [address], 5 09:39:49 T4, free, serum [id number] - Outpatient Lab, [address] [place], [address], 5 09:39:50 CBC w/ auto diff [id number] Outpatient Lab, [address] [place], [address], 4 16:52:03 CMP, serum or plasma [id number] Outpatient Lab, [address] [place], [address], 4 16:52:04 PTH (parathyr oid hormone), intact, serum or plasma [id number] [address] Outpatient Lab, [address] [place], [address], 4 16:52:04 phosphoru s, serum or plasma [id number] [address] Outpatient Lab, [address] [place], [address], 4 16:52:04 vitamin D, 25-hydrox y, total, serum [id number] Outpatient Lab, [address] [place], [address], 4 16:52:04 CBC w/ auto diff [facility] Outpatient Lab, [address] [place], [address], 4 12:00:16 CMP, serum or plasma [facility] Outpatient Lab, [address] [place], [address], 4 12:09:18 lipid panel, serum [facility] Outpatient Lab, [address] [place], [address], 4 12:09:23 TSH, serum or plasma 024 024 [facility] Outpatient Lab, [address] [place], [address], 4 12:37:33 T4, free, serum 024 024 [facility] Outpatient Lab, [address] [place], [address], 4 12:20:16 vitamin D, 25-hydrox y, total, serum [id number] [place] [address] Outpatient Lab, [address] [place], [address], 3 17:48:50 CBC w/ auto diff 023 023 [facility] Outpatient Lab, [address] [place], [address], 3 10:37:35 CMP, serum or plasma 023 023 [facility] Outpatient Lab, [address] [place], [address], 3 11:06:38 lipid panel, serum 023 023 [facility] Outpatient Lab, [address] [place], [address], 3 11:06:42 TSH, serum or plasma 023 023 [facility] Outpatient Lab, [address] [place], [address], 3 10:59:59 T4, free, serum 023 023 [facility] Outpatient Lab, [address] [place], [address], 10:46:14 Referral None recorded. Procedures None recorded. Surgeries None recorded. Imaging None recorded. Medication Orders None recorded. Patient TargetsNo targets recorded. Patient Instructions Encounter Date Encounter Id Patient Instructions Last Modified By Organization Details Last Modified Time 06/25/2023 [id number] dementia rating scale-2* [email or web address] Not available 06/25/2023 11:04:20 alcohol misuse* [email or web address] Not available 06/25/2023 11:04:20 depression screening* Not avai lable 06/25/2023 11:04:20 Timed Up and Go test (TUG)* Not available 06/25/2023 11:04:20 multi-dimensiona l health assessment questionnaire* Not available 06/25/2023 11:04:20 Personalized Hea lth Plan and Screening Recommendations Advance Directives - Do you have one? Yes Advance Directives - Do we have your advance directive on file in your health record? Yes Primary Prevention/Interventi on (prevents or decreases the chance of common diseases from occurring) Smoking Risk: Non Smoker Alcohol Misuse Screening: Negative Weight: Overweight try to lose 10% of your body weight Physical activity: Need more exercise/physical activity Nutrition: Average Eat heart healthy diet Fall Risk (screened today): Low Vaccines Pneumococcal: No further needed Influenza: Your next one in the fall of this year Chronic Disease Risks Stroke: Intermediate Risk Active diagnosis, Continue current treatment plan Heart Attack: Low risk I have no recommendations Clogging of the Arteries: Low risk I have no recommendations Diabetes: Low Risk I have no recommendations Secondary Prevention/Interventi on (detects treatable diseases before they may cause symptoms, disability, or ) Breast Cancer Screening with mammogram: up to date Cervical/Uterine/Ovar jagdish Cancer Screening: No screening necessary Osteoporosis Screening: up to date Date Screening Last Performed: Colon Cancer Screening: Colonoscopy due 09/13 Date Screening Last Performed: __2017__ Eye Disease Screening: Your next exam in: goes yearly Dementia Risk: Low I have no recommendations Depression Screening: Negative I have no recommendations [email or web address] Not available 06/25/2023 10:56:18 Adult health examination [...] with voice recognition software. Occasional wrong-word or s ound-a-like substitutions may have occurred due to the inherent limitations of voice recognition software. Read the chart carefully and recognize, using context, where substitutions have occurred. Not available 06/25/2023 11:03:55 12/24/2023 [id number] Follow-up [id number] umatoid arthritis and obesity class two. All clinically stable at this juncture. Will check blood work consisting of CBC, CMP, lipid, thyroid. Continue on current medications. See no contraindications for upcoming hammer toe surgery with Dr. Tuttle. Follow-up in six months Next Appt: 6 Months Approximate Date: 06/21/2024 Portions of the record may have been created with voice recognition software. Occasional wrong-word or s ound-a-like substitutions may have occurred due to the inherent limitations of voice recognition software. Read the chart carefully and recognize, using context, where substitutions have occurred. [email or web address] Not available 12/24/2023 10:51:41 07/05/2024 [id number] dementia rating scale-2* [email or web address] Not available 07/05/2024 14:54:53 alcohol misuse* [email or web address] Not available 07/05/2024 14:54:53 depression screening* [email or web address] Not chatoai jesse 07/05/2024 14:54:54 Timed Up and Go test (TUG)* Not available 07/05/2024 14:54:53 multi-dimensiona l health assessment questionnaire* [email or web address] Not available 07/05/2024 14:54:54 Personalized a lt Plan and Screening Recommendations Advance Directives - Do you have one? Yes Advance Directives - Do we have your advance directive on file in your health record? Yes Primary Prevention/Interventi on (prevents or decreases the chance of common diseases from occurring) Smoking Risk: Non Smoker Alcohol Misuse Screening: Negative Weight: Overweight try to lose 10% of your body weight Physical activity: Need more exercise/physical activity Nutrition: Average Eat heart healthy diet Fall Risk (screened today): Low Vaccines Pneumococcal: No further needed Influenza: Recommended today Chronic Disease Risks Stroke: Intermediate Risk Active diagnosis, Continue current treatment plan Heart Attack: Intermediate Risk Active diagnosis, Continue current treatment plan Clogging of the Arteries: Low risk I have no recommendations Diabetes: Low Risk I have no recommendations Secondary Prevention/Interventi on (detects treatable diseases before they may cause symptoms, disability, or ) Breast Cancer Screening with mammogram: up to date Cervical/Uterine/Ovar jagdish Cancer Screening: No screening necessary Osteoporosis Screening: up to date Date Screening Last Performed: Colon Cancer Screening: Colonoscopy due 2027 Date Screening Last Performed: _2022____ Eye Disease Screening: Your next exam in: goes yearly Dementia Risk: Low I have no recommendations Depression Screening: Negative I have no recommendations [email or web address] Not available 07/05/2024 14:45:55 Medicare wellnes s [...] with voice recognition software. Occasional wrong-word or s ound-a-like substitutions may have occurred due to the inherent limitations of voice recognition software. Read the chart carefully and recognize, using context, where substitutions have occurred. [email or web address] Not available 07/05/2024 14:54:28 11/16/2024 [id number] Follow-up essent ial hypertension, rheumatoid arthritis, GERD and obesity class three all clinically stable. Clinically doing well otherwise.. Was recently put on Rinvoq for arthritis and has shown substantial improvement. Otherwise doing well. Will continue on current Rx Follow Up: 6 Months Approximate Date: 05/15/2025 Portions of record are template driven. When necessary additional context will be provided. Additionally some portions have been created with voice recognition software. Occasional wrong-word or s ound-a-like substitutions may have occurred due to the inherent limitations of voice recognition software. Read the chart carefully and recognize, using context, where substitutions may have occurred. Created: Candi Graves M.D. 11.16.2024 02:15 PM [email or web address] Not available 11/16/2024 15:15:45 05/17/2025 [id number] Follow-up for essential hypertension, rheumatoid arthritis as well as obesity class three all clinically stable. Did instruct her on again weight loss possibilities including GLP -one inhibitors. Clinically stable otherwise. Will check some baseline blood work consisting of CBC, CMP, lipid,Vit D, thyroid and hemoglobin A1c. Continue on current medications follow-up in six months Follow Up: 6 Months Approximate Date: 11/13/2025 Portions of record are template driven. When necessary additional context will be provided. Additionally some portions have been created with voice recognition software. Occasional wrong-word or s ound-a-like substitutions may have occurred due to the inherent limitations of voice recognition software. Read the chart carefully and recognize, using context, where substitutions may have occurred. Created: Candi Graves M.D. 05.17.2025 02:08 PM [email or web address] Not available 05/17/2025 15:08:31 Reason for Referral None Reported. Results Created Date Observation Date Name Description Value Unit Range Abnormal Flag Note LastModifiedBy Organization Detail LastModifiedTime 07/02/2007/02/2023 CBC/C OMPLE TE BLD COUNT W/DIF F white blood cells 5.6 x10'3 /uL 4.2-10 .8 Not Available [facility] (Lab) [address] [place], [address], 07/02/2023 10:37:34 07/02/20 23 07/02/2023 CBC/C OMPLE TE BLD COUNT W/DIF F red blood cells 3.91 x10'6 /uL 3.80-5 .20 Not Available [facility] (Lab) [address] [place], [address], 07/02/2023 10:37:34 07/02/20 23 07/02/2023 CBC/C OMPLE TE BLD COUNT W/DIF F hemoglobin 12.8 g/dL 12.0-1 5.6 Not Available [facility] (Lab) [address] [place], [address], 07/02/2023 10:37:34 07/02/2007/02/2023 CBC/C OMPLE TE BLD COUNT W/DIF F hematocrit 38.9 % 35.7-4 5.7 Not Available [facility] (Lab) [address] [place], [address], 07/02/2023 10:37:34 07/02/2007/02/2023 CBC/C OMPLE TE BLD COUNT W/DIF F mean red cell volume 99.5 fL 82.0-9 9.0 high Not Available [facility] (Lab) [address] [place], [address], 07/02/2023 10:37:34 07/02/2007/02/2023 CBC/C OMPLE TE BLD COUNT W/DIF F mean red cell hemoglobin 32.7 pg 27.0-3 3.0 Not Available [facility] (Lab) [address] [place], [address], 07/02/2023 10:37:34 07/02/2007/02/2023 CBC/C OMPLE TE BLD COUNT W/DIF F mean RBC HGB concentratio n 32.9 g/dL 31.0-3 6.0 Not Available [facility] (Lab) [address] [place], [address], 07/02/2023 10:37:34 07/02/20 23 07/02/2023 CBC/C OMPLE TE BLD COUNT W/DIF F red cell distribution width 14.5 % 11.8-1 5.5 Not Available [facility] (Lab) [address] [place], [address], 07/02/2023 10:37:34 07/02/2007/02/2023 CBC/C OMPLE TE BLD COUNT W/DIF F platelets 199 x10'3 /uL 150-40 0 Not Available [facility] (Lab) [address] [place], [address], 07/02/2023 10:37:34 07/02/2007/02/2023 CBC/C OMPLE TE BLD COUNT W/DIF F mean platelet volume 10.4 fL 9.0-12 .4 Not Available [facility] (Lab) [address] [place], [address], 07/02/2023 10:37:34 07/02/2007/02/2023 CBC/C OMPLE TE BLD COUNT W/DIF F neutrophils 60.2 % 39.0-7 2.0 Not Available [facility] (Lab) [address] [place], [address], 07/02/2023 10:37:34 07/02/2007/02/2023 CBC/C OMPLE TE BLD COUNT W/DIF F lymphocytes 21.1 % 16.0-4 7.0 Not Available [facility] (Lab) [address] [place], [address], 07/02/2023 10:37:34 07/02/2007/02/2023 CBC/C OMPLE TE BLD COUNT W/DIF F monocytes 12.5 % 5.0-12 .0 high Not Available [facility] (Lab) [address] [place], [address], 07/02/2023 10:37:34 07/02/2007/02/2023 CBC/C OMPLE TE BLD COUNT W/DIF F eosinophils 4.6 % 1.0-7. 0 Not Available [facility] (Lab) [address] [place], [address], 07/02/2023 10:37:34 07/02/2007/02/2023 CBC/C OMPLE TE BLD COUNT W/DIF F basophils 1.4 % 0.0-2. 0 Not Available [facility] (Lab) [address] [place], [address], 07/02/2023 10:37:34 07/02/20 23 07/02/2023 CBC/C OMPLE TE BLD COUNT W/DIF F immature granulocytes 0.2 % 0.00-0 .50 Not Available [facility] (Lab) [address] [place], [address], 07/02/2023 10:37:34 07/02/2007/02/2023 CBC/C OMPLE TE BLD COUNT W/DIF F neutrophils, absolute count 3.37 x10'3 /uL 1.5-8. 0 Not Available [facility] (Lab) [address] [place], [address], 07/02/2023 10:37:34 07/02/2007/02/2023 CBC/C OMPLE TE BLD COUNT W/DIF F lymphocytes, absolute count 1.18 x10'3 /uL 1.07-3 .43 Not Available [facility] (Lab) [address] [place], [address], 07/02/2023 10:37:34 07/02/2007/02/2023 CBC/C OMPLE TE BLD COUNT W/DIF F monocytes, absolute count 0.70 x10'3 /uL 0.29-0 .99 Not Available [facility] (Lab) [address] [place], [address], 07/02/2023 10:37:34 07/02/2007/02/2023 CBC/C OMPLE TE BLD COUNT W/DIF F eosinophils, absolute count 0.26 x10'3 /uL 0.02-0 .53 Not Available [facility] (Lab) [address] [place], [address], 07/02/2023 10:37:34 07/02/20 23 07/02/2023 CBC/C OMPLE TE BLD COUNT W/DIF F basophils, absolute count 0.08 x10'3 /uL 0.01-0 .08 Not Available [facility] (Lab) [address] [place], [address], 07/02/2023 10:37:34 07/02/2007/02/2023 CBC/C OMPLE TE BLD COUNT W/DIF F immature granulocytes ,absolute 0.01 x10'3 /uL 0.00-0 .05 Not Available [facility] (Lab) [address] [place], [address], 07/02/2023 10:37:34 07/02/20 23 07/02/2023 CBC/C OMPLE TE BLD COUNT W/DIF F nucleated red blood cells 0.0 % -0 Not Available [facility] (Lab) [address] [place], [address], 07/02/2023 10:37:34 07/02/2007/02/2023 CBC/C OMPLE TE BLD COUNT W/DIF F NRBC# 0.00 x10'3 /uL Not Available [facility] (Lab) [address] [place], [address], 07/02/2023 10:37:34 07/02/2007/02/2023 T4 FREE free T4 1.02 NG/dL 0.78-2 .19 Not Available [facility] (Lab) [address] [place], [address], 07/02/2023 10:46:14 07/02/2007/02/2023 VITAM IN D 25-HY DROXY [id number] 54.0 NG/mL 30-100 Vitam in D Statu s: Defic ient: <20 ng/mL Insuf ficie nt: 20-29 ng/mL Suffi cient : 30-10 0 ng/mL Not Available [facility] (Lab) [address] [place], [address], 07/02/2023 10:55:23 07/02/2007/02/2023 TSH thyroid-stim ulating hormone 3.720 uIU/m L 0.465- 4.680 Not Available [facility] (Lab) [address] [place], [address], 07/02/2023 10:59:59 07/02/2007/02/2023 COMPR EHENS FREDERIC METAB OLIC PANEL sodium 138 mmol/ L 137-14 5 Not Available [facility] (Lab) [address] [place], [address], 07/02/2023 11:06:37 07/02/2007/02/2023 COMPR EHENS FREDERIC METAB OLIC PANEL potassium 4.2 mmol/ L 3.5-5. 1 Not Available [facility] (Lab) [address] [place], [address], 07/02/2023 11:06:37 07/02/2007/02/2023 COMPR EHENS FREDERIC METAB OLIC PANEL chloride 102 mmol/ L 98-107 Not Available [facility] (Lab) [address] [place], [address], 07/02/2023 11:06:37 07/02/2007/02/2023 COMPR EHENS FREDERIC METAB OLIC PANEL carbon dioxide 31 mmol/ L 22-30 high Not Available [facility] (Lab) [address] [place], [address], 07/02/2023 11:06:37 07/02/2007/02/2023 COMPR EHENS FREDERIC METAB OLIC PANEL anion gap 9.2 mmol/ L 14-22 low Not Available [facility] (Lab) [address] [place], [address], 07/02/2023 11:06:37 07/02/20 23 07/02/2023 COMPR EHENS FREDERIC METAB OLIC PANEL glucose 96 mg/dL 70-99 Not Available [facility] (Lab) [address] [place], [address], 07/02/2023 11:06:37 07/02/20 23 07/02/2023 COMPR EHENS FREDERIC METAB OLIC PANEL BUN 34 mg/dL 8-19 high Not Available [facility] (Lab) [address] [place], [address], 07/02/2023 11:06:37 07/02/2007/02/2023 COMPR EHENS FREDERIC METAB OLIC PANEL creatinine 1.12 mg/dL 0.66-1 .25 Not Available [facility] (Lab) [address] [place], [address], 07/02/2023 11:06:37 07/02/2007/02/2023 COMPR EHENS FREDERIC METAB OLIC PANEL GFR 48 Refer ence Range : [place] ge GFR Healt hy Adult : >60 [...] calcu lator is avail able on the [facility] websi te: [email or web address] :[email or web address] [email or web address] easley/pr ofess ional s/kdo qi/gf r_cal culat or Not Available [facility] (Lab) [address] [place], [address], 07/02/2023 11:06:37 07/02/2007/02/2023 COMPR EHENS FREDERIC METAB OLIC PANEL alkaline phosphatase 68 U/L 38-126 Not Available [facility] (Lab) [address] [place], [address], 07/02/2023 11:06:37 07/02/2007/02/2023 COMPR EHENS FREDERIC METAB OLIC PANEL alanine aminotransfe rase 30 U/L 0-35 Not Available [facility] (Lab) [address] [place], [address], 07/02/2023 11:06:37 07/02/2007/02/2023 COMPR EHENS FREDERIC METAB OLIC PANEL aspartate aminotransfe rase 37 U/L 15-37 Not Available [facility] (Lab) [address] [place], [address], 07/02/2023 11:06:37 07/02/2007/02/2023 COMPR EHENS FREDERIC METAB OLIC PANEL bilirubin, total 0.60 mg/dL 0.20-1 .30 Not Available [facility] (Lab) [address] [place], [address], 07/02/2023 11:06:37 07/02/20 23 07/02/2023 COMPR EHENS FREDERIC METAB OLIC PANEL calcium 9.7 mg/dL 8.4-10 .2 Not Available [facility] (Lab) [address] [place], [address], 07/02/2023 11:06:37 07/02/20 23 07/02/2023 COMPR EHENS FREDERIC METAB OLIC PANEL total protein 6.1 g/dL 6.3-8. 2 low Not Available [facility] (Lab) [address] [place], [address], 07/02/2023 11:06:37 07/02/2007/02/2023 COMPR EHENS FREDERIC METAB OLIC PANEL albumin 3.8 g/dL 3.0-4. 4 Not Available [facility] (Lab) [address] [place], [address], 07/02/2023 11:06:37 07/02/2007/02/2023 COMPR EHENS FREDERIC METAB OLIC PANEL globulin 2.3 g/dL 2.6-4. 2 low Not Available [facility] (Lab) [address] [place], [address], 07/02/2023 11:06:37 07/02/2007/02/2023 COMPR EHENS FREDERIC METAB OLIC PANEL A/G ratio 1.7 ratio 1.0-2. 0 Not Available [facility] (Lab) [address] [place], [address], 07/02/2023 11:06:37 07/02/2007/02/2023 LIPID PANEL cholesterol 156 mg/dL 140-19 9 NIH MILY NSUS RECOM MENDA TION FOR AUGUSTINA STERO L: ADULT CHILD LOW RISK: <200 <170 BORDE RLINE : <200- 239 ----- HIGH RISK: >240 >200 Not Available [facility] (Lab) [address] [place], [address], 07/02/2023 11:06:42 07/02/2007/02/2023 LIPID PANEL triglyceride s 52 mg/dL 0-150 NIH MILY NSUS REPOR T RECOM MENDA TION FOR TRIGL YCERI PILI: ADULT CHILD LOW RISK: <150 ----- BODER LINE: 150-1 99 ----- HIGH RISK: >200 ----- Not Available [facility] (Lab) [address] [place], [address], 07/02/2023 11:06:42 07/02/20 23 07/02/2023 LIPID PANEL HDL cholesterol 68 mg/dL 40- Not Available [facility] (Lab) [address] [place], [address], 07/02/2023 11:06:42 07/02/20 23 07/02/2023 LIPID PANEL LDL cholesterol, calculated 78 mg/dL [...] WILL NOT BE REPOR LORRAINE. Not Available [facility] (Lab) [address] [place], [address], 07/02/2023 11:06:42 12/31/19 24 12/31/2023 CBC/C OMPLE TE BLD COUNT W/DIF F white blood cells 4.5 x10'3 /uL 4.2-10 .8 Not Available [facility] (Lab) [address] [place], [address], 12/31/2023 12:00:16 12/31/19 24 12/31/2023 CBC/C OMPLE TE BLD COUNT W/DIF F red blood cells 4.05 x10'6 /uL 3.80-5 .20 Not Available [facility] (Lab) [address] [place], [address], 12/31/2023 12:00:16 12/31/19 24 12/31/2023 CBC/C OMPLE TE BLD COUNT W/DIF F hemoglobin 13.3 g/dL 12.0-1 5.6 Not Available [facility] (Lab) [address] [place], [address], 12/31/2023 12:00:16 12/31/19 24 12/31/2023 CBC/C OMPLE TE BLD COUNT W/DIF F hematocrit 38.7 % 35.7-4 5.7 Not Available [facility] (Lab) [address] [place], [address], 12/31/2023 12:00:16 12/31/1912/31/2023 CBC/C OMPLE TE BLD COUNT W/DIF F mean red cell volume 95.6 fL 82.0-9 9.0 Not Available [facility] (Lab) [address] [place], [address], 12/31/2023 12:00:16 12/31/19 24 12/31/2023 CBC/C OMPLE TE BLD COUNT W/DIF F mean red cell hemoglobin 32.8 pg 27.0-3 3.0 Not Available [facility] (Lab) [address] [place], [address], 12/31/2023 12:00:16 12/31/19 24 12/31/2023 CBC/C OMPLE TE BLD COUNT W/DIF F mean RBC HGB concentratio n 34.4 g/dL 31.0-3 6.0 Not Available [facility] (Lab) [address] [place], [address], 12/31/2023 12:00:16 12/31/19 24 12/31/2023 CBC/C OMPLE TE BLD COUNT W/DIF F red cell distribution width 15.5 % 11.8-1 5.5 Not Available [facility] (Lab) [address] [place], [address], 12/31/2023 12:00:16 12/31/19 24 12/31/2023 CBC/C OMPLE TE BLD COUNT W/DIF F platelets 207 x10'3 /uL 150-40 0 Not Available [facility] (Lab) [address] [place], [address], 12/31/2023 12:00:16 12/31/19 24 12/31/2023 CBC/C OMPLE TE BLD COUNT W/DIF F mean platelet volume 10.0 fL 9.0-12 .4 Not Available [facility] (Lab) [address] [place], [address], 12/31/2023 12:00:16 12/31/19 24 12/31/2023 CBC/C OMPLE TE BLD COUNT W/DIF F neutrophils 50.9 % 39.0-7 2.0 Not Available [facility] (Lab) [address] [place], [address], 12/31/2023 12:00:16 12/31/19 24 12/31/2023 CBC/C OMPLE TE BLD COUNT W/DIF F lymphocytes 22.8 % 16.0-4 7.0 Not Available [facility] (Lab) [address] [place], [address], 12/31/2023 12:00:16 12/31/19 24 12/31/2023 CBC/C OMPLE TE BLD COUNT W/DIF F monocytes 16.5 % 5.0-12 .0 high Not Available [facility] (Lab) [address] [place], [address], 12/31/2023 12:00:16 12/31/19 24 12/31/2023 CBC/C OMPLE TE BLD COUNT W/DIF F eosinophils 7.8 % 1.0-7. 0 high Not Available [facility] (Lab) [address] [place], [address], 12/31/2023 12:00:16 12/31/19 24 12/31/2023 CBC/C OMPLE TE BLD COUNT W/DIF F basophils 1.6 % 0.0-2. 0 Not Available [facility] (Lab) [address] [place], [address], 12/31/2023 12:00:16 12/31/19 24 12/31/2023 CBC/C OMPLE TE BLD COUNT W/DIF F immature granulocytes 0.4 % 0.00-0 .50 Not Available [facility] (Lab) [address] [place], [address], 12/31/2023 12:00:16 12/31/19 24 12/31/2023 CBC/C OMPLE TE BLD COUNT W/DIF F neutrophils, absolute count 2.28 x10'3 /uL 1.5-8. 0 Not Available [facility] (Lab) [address] [place], [address], 12/31/2023 12:00:16 12/31/19 24 12/31/2023 CBC/C OMPLE TE BLD COUNT W/DIF F lymphocytes, absolute count 1.02 x10'3 /uL 1.07-3 .43 low Not Available [facility] (Lab) [address] [place], [address], 12/31/2023 12:00:16 12/31/19 24 12/31/2023 CBC/C OMPLE TE BLD COUNT W/DIF F monocytes, absolute count 0.74 x10'3 /uL 0.29-0 .99 Not Available [facility] (Lab) [address] [place], [address], 12/31/2023 12:00:16 12/31/19 24 12/31/2023 CBC/C OMPLE TE BLD COUNT W/DIF F eosinophils, absolute count 0.35 x10'3 /uL 0.02-0 .53 Not Available [facility] (Lab) [address] [place], [address], 12/31/2023 12:00:16 12/31/19 24 12/31/2023 CBC/C OMPLE TE BLD COUNT W/DIF F basophils, absolute count 0.07 x10'3 /uL 0.01-0 .08 Not Available [facility] (Lab) [address] [place], [address], 12/31/2023 12:00:16 12/31/19 24 12/31/2023 CBC/C OMPLE TE BLD COUNT W/DIF F immature granulocytes ,absolute 0.02 x10'3 /uL 0.00-0 .05 Not Available [facility] (Lab) [address] [place], [address], 12/31/2023 12:00:16 12/31/19 24 12/31/2023 CBC/C OMPLE TE BLD COUNT W/DIF F nucleated red blood cells 0.0 % -0 Not Available [facility] (Lab) [address] [place], [address], 12/31/2023 12:00:16 12/31/19 24 12/31/2023 CBC/C OMPLE TE BLD COUNT W/DIF F NRBC# 0.00 x10'3 /uL Not Available [facility] (Lab) [address] [place], [address], 12/31/2023 12:00:16 12/31/19 24 12/31/2023 COMPR EHENS FREDERIC METAB OLIC PANEL sodium 138 mmol/ L 137-14 5 Not Available [facility] (Lab) [address] [place], [address], 12/31/2023 12:09:18 12/31/19 24 12/31/2023 COMPR EHENS FREDERIC METAB OLIC PANEL potassium 4.0 mmol/ L 3.5-5. 1 Not Available [facility] (Lab) [address] [place], [address], 12/31/2023 12:09:18 12/31/19 24 12/31/2023 COMPR EHENS FREDERIC METAB OLIC PANEL chloride 105 mmol/ L 98-107 Not Available [facility] (Lab) [address] [place], [address], 12/31/2023 12:09:18 12/31/19 24 12/31/2023 COMPR EHENS FREDERIC METAB OLIC PANEL carbon dioxide 27 mmol/ L 22-30 Not Available [facility] (Lab) [address] [place], [address], 12/31/2023 12:09:18 12/31/19 24 12/31/2023 COMPR EHENS FREDERIC METAB OLIC PANEL anion gap 10.0 mmol/ L 14-22 low Not Available [facility] (Lab) [address] [place], [address], 12/31/2023 12:09:18 12/31/19 24 12/31/2023 COMPR EHENS FREDERIC METAB OLIC PANEL glucose 101 mg/dL 70-99 high Not Available [facility] (Lab) [address] [place], [address], 12/31/2023 12:09:18 12/31/19 24 12/31/2023 COMPR EHENS FREDERIC METAB OLIC PANEL BUN 26 mg/dL 8-19 high Not Available [facility] (Lab) [address] [place], [address], 12/31/2023 12:09:18 12/31/19 24 12/31/2023 COMPR EHENS FREDERIC METAB OLIC PANEL creatinine 1.06 mg/dL 0.66-1 .25 Not Available [facility] (Lab) [address] [place], [address], 12/31/2023 12:09:18 12/31/19 24 12/31/2023 COMPR EHENS FREDERIC METAB OLIC PANEL GFR 52 Refer ence Range : [place] ge GFR Healt hy Adult : >60 [...] calcu lator is avail able on the [facility] websi te: https ://mansoor [email or web address].janak kellogg.o rg/pr citlalliess jean-pierreal s/kdo qi/gf r_cal culat or Not Available [facility] (Lab) [address] [place], [address], 12/31/2023 12:09:18 12/31/19 24 12/31/2023 COMPR EHENS FREDERIC METAB OLIC PANEL alkaline phosphatase 88 U/L 38-126 Not Available [facility] (Lab) [address] [place], [address], 12/31/2023 12:09:18 12/31/19 24 12/31/2023 COMPR EHENS FREDERIC METAB OLIC PANEL alanine aminotransfe rase 35 U/L 0-35 Not Available [facility] (Lab) [address] [place], [address], 12/31/2023 12:09:18 12/31/19 24 12/31/2023 COMPR EHENS FREDERIC METAB OLIC PANEL aspartate aminotransfe rase 46 U/L 15-37 high Not Available [facility] (Lab) [address] [facility] [facility] [place], [address], 12/31/2023 12:09:18 12/31/19 24 12/31/2023 COMPR EHENS FREDERIC METAB OLIC PANEL bilirubin, total 0.60 mg/dL 0.20-1 .30 Not Available [facility] (Lab) [address] [place], [address], 12/31/2023 12:09:18 12/31/19 24 12/31/2023 COMPR EHENS FREDERIC METAB OLIC PANEL calcium 9.7 mg/dL 8.4-10 .2 Not Available [facility] (Lab) [address] [place], [address], 12/31/2023 12:09:18 12/31/19 24 12/31/2023 COMPR EHENS FREDERIC METAB OLIC PANEL total protein 6.2 g/dL 6.3-8. 2 low Not Available [facility] (Lab) [address] [place], [address], 12/31/2023 12:09:18 12/31/19 24 12/31/2023 COMPR EHENS FREDERIC METAB OLIC PANEL albumin 4.0 g/dL 3.0-4. 4 Not Available [facility] (Lab) [address] [place], [address], 12/31/2023 12:09:18 12/31/19 24 12/31/2023 COMPR EHENS FREDERIC METAB OLIC PANEL globulin 2.2 g/dL 2.6-4. 2 low Not Available [facility] (Lab) [address] [place], [address], 12/31/2023 12:09:18 12/31/19 24 12/31/2023 COMPR EHENS FREDERIC METAB OLIC PANEL A/G ratio 1.8 ratio 1.0-2. 0 Not Available [facility] (Lab) [address] [place], [address], 12/31/2023 12:09:18 12/31/19 24 12/31/2023 LIPID PANEL cholesterol 152 mg/dL 140-19 9 NIH MILY NSUS RECOM MENDA TION FOR AUGUSTINA STERO L: ADULT CHILD LOW RISK: <200 <170 BORDE RLINE : <200- 239 ----- HIGH RISK: >240 >200 Not Available [facility] (Lab) [address] [place], [address], 12/31/2023 12:09:22 12/31/19 24 12/31/2023 LIPID PANEL triglyceride s 63 mg/dL 0-150 NIH MILY NSUS REPOR T RECOM MENDA TION FOR TRIGL YCERI PILI: ADULT CHILD LOW RISK: <150 ----- BODER LINE: 150-1 99 ----- HIGH RISK: >200 ----- Not Available [facility] (Lab) [address] [place], [address], 12/31/2023 12:09:22 12/31/19 24 12/31/2023 LIPID PANEL HDL cholesterol 81 mg/dL 40- Not Available [facility] (Lab) [address] [place], [address], 12/31/2023 12:09:22 12/31/19 24 12/31/2023 LIPID PANEL [...] WILL NOT BE REPOR LORRAINE. Not Available [facility] (Lab) [address] [place], [address], 12/31/2023 12:09:22 12/31/19 24 12/31/2023 T4 FREE free T4 0.93 NG/dL 0.78-2 .19 Not Available [facility] (Lab) [address] [place], [address], 12/31/2023 12:20:16 12/31/19 24 12/31/2023 TSH thyroid-stim ulating hormone 3.200 uIU/m L 0.465- 4.680 Not Available [facility] (Lab) [address] [place], [address], 12/31/2023 12:37:33 05/27/20 25 05/27/2025 CBC/C OMPLE TE BLD COUNT W/DIF F white blood cells 3.8 x10'3 /uL 4.2-10 .8 low Not Available [facility] (Lab) [address] [place], [address], 05/27/2025 11:54:00 05/27/20 25 05/27/2025 CBC/C OMPLE TE BLD COUNT W/DIF F red blood cells 4.12 x10'6 /uL 4.10-5 .80 Not Available [facility] (Lab) [address] [place], [address], 05/27/2025 11:54:00 05/27/20 25 05/27/2025 CBC/C OMPLE TE BLD COUNT W/DIF F hemoglobin 13.2 g/dL 13.2-1 7.0 Not Available [facility] (Lab) [address] [place], [address], 05/27/2025 11:54:00 05/27/20 25 05/27/2025 CBC/C OMPLE TE BLD COUNT W/DIF F hematocrit 38.8 % 39.3-5 0.0 low Not Available [facility] (Lab) [address] [place], [address], 05/27/2025 11:54:00 05/27/20 25 05/27/2025 CBC/C OMPLE TE BLD COUNT W/DIF F mean red cell volume 94.2 fL 80.0-9 7.0 Not Available [facility] (Lab) [address] [place], [address], 05/27/2025 11:54:00 05/27/20 25 05/27/2025 CBC/C OMPLE TE BLD COUNT W/DIF F mean red cell hemoglobin 32.0 pg 27.0-3 3.0 Not Available [facility] (Lab) [address] [place], [address], 05/27/2025 11:54:00 05/27/20 25 05/27/2025 CBC/C OMPLE TE BLD COUNT W/DIF F mean RBC HGB concentratio n 34.0 g/dL 31.0-3 6.0 Not Available [facility] (Lab) [address] [facility] [place], [address], 05/27/2025 11:54:00 05/27/20 25 05/27/2025 CBC/C OMPLE TE BLD COUNT W/DIF F red cell distribution width 13.3 % 11.8-1 5.5 Not Available [facility] (Lab) [address] [place], [address], 05/27/2025 11:54:00 05/27/20 25 05/27/2025 CBC/C OMPLE TE BLD COUNT W/DIF F platelets 173 x10'3 /uL 150-40 0 Not Available [facility] (Lab) [address] [place], [address], 05/27/2025 11:54:00 05/27/20 25 05/27/2025 CBC/C OMPLE TE BLD COUNT W/DIF F mean platelet volume 9.8 fL 9.0-12 .4 Not Available [facility] (Lab) [address] [place], [address], 05/27/2025 11:54:00 05/27/20 25 05/27/2025 CBC/C OMPLE TE BLD COUNT W/DIF F neutrophils 58.6 % 39.0-7 2.0 Not Available [facility] (Lab) [address] [place], [address], 05/27/2025 11:54:00 05/27/20 25 05/27/2025 CBC/C OMPLE TE BLD COUNT W/DIF F lymphocytes 23.6 % 16.0-4 7.0 Not Available [facility] (Lab) [address] [place], [address], 05/27/2025 11:54:00 05/27/2005/27/2025 CBC/C OMPLE TE BLD COUNT W/DIF F monocytes 13.8 % 5.0-12 .0 high Not Available [facility] (Lab) [address] [place], [address], 05/27/2025 11:54:00 05/27/20 25 05/27/2025 CBC/C OMPLE TE BLD COUNT W/DIF F eosinophils 2.4 % 1.0-7. 0 Not Available [facility] (Lab) [address] [place], [address], 05/27/2025 11:54:00 05/27/20 25 05/27/2025 CBC/C OMPLE TE BLD COUNT W/DIF F basophils 1.1 % 0.0-2. 0 Not Available [facility] (Lab) [address] [place], [address], 05/27/2025 11:54:00 05/27/20 25 05/27/2025 CBC/C OMPLE TE BLD COUNT W/DIF F immature granulocytes 0.5 % 0.00-0 .50 Not Available [facility] (Lab) [address] [place], [address], 05/27/2025 11:54:00 05/27/2005/27/2025 CBC/C OMPLE TE BLD COUNT W/DIF F neutrophils, absolute count 2.21 x10'3 /uL 1.5-8. 0 Not Available [facility] (Lab) [address] [place], [address], 05/27/2025 11:54:00 05/27/20 25 05/27/2025 CBC/C OMPLE TE BLD COUNT W/DIF F lymphocytes, absolute count 0.89 x10'3 /uL 1.07-3 .43 low Not Available [facility] (Lab) [address] [place], [address], 05/27/2025 11:54:00 05/27/2005/27/2025 CBC/C OMPLE TE BLD COUNT W/DIF F monocytes, absolute count 0.52 x10'3 /uL 0.29-0 .99 Not Available [facility] (Lab) [address] [place], [address], 05/27/2025 11:54:00 05/27/20 25 05/27/2025 CBC/C OMPLE TE BLD COUNT W/DIF F eosinophils, absolute count 0.09 x10'3 /uL 0.02-0 .53 Not Available [facility] (Lab) [address] [place], [address], 05/27/2025 11:54:00 05/27/20 25 05/27/2025 CBC/C OMPLE TE BLD COUNT W/DIF F basophils, absolute count 0.04 x10'3 /uL 0.01-0 .08 Not Available [facility] (Lab) [address] [place], [address], 05/27/2025 11:54:00 05/27/20 25 05/27/2025 CBC/C OMPLE TE BLD COUNT W/DIF F immature granulocytes ,absolute 0.02 x10'3 /uL 0.00-0 .05 Not Available [facility] (Lab) [address] [place], [address], 05/27/2025 11:54:00 05/27/20 25 05/27/2025 CBC/C OMPLE TE BLD COUNT W/DIF F nucleated red blood cells 0.0 % -0 Not Available [facility] (Lab) [address] [place], [address], 05/27/2025 11:54:00 05/27/20 25 05/27/2025 CBC/C OMPLE TE BLD COUNT W/DIF F NRBC# 0.00 x10'3 /uL Not Available [facility] (Lab) [address] [place], [address], 05/27/2025 11:54:00 05/27/20 25 05/27/2025 COMPR EHENS FREDERIC METAB OLIC PANEL sodium 134 mmol/ L 137-14 5 low Not Available [facility] (Lab) [address] [place], [address], 05/27/2025 12:00:48 05/27/20 25 05/27/2025 COMPR EHENS FREDERIC METAB OLIC PANEL potassium 4.1 mmol/ L 3.5-5. 1 Not Available [facility] (Lab) [address] [place], [address], 05/27/2025 12:00:48 05/27/20 25 05/27/2025 COMPR EHENS FREDERIC METAB OLIC PANEL chloride 99 mmol/ L 98-107 Not Available [facility] (Lab) [address] [place], [address], 05/27/2025 12:00:48 05/27/20 25 05/27/2025 COMPR EHENS FREDERIC METAB OLIC PANEL carbon dioxide 31 mmol/ L 22-30 high Not Available [facility] (Lab) [address] [place], [address], 05/27/2025 12:00:48 05/27/20 25 05/27/2025 COMPR EHENS FREDERIC METAB OLIC PANEL anion gap 8.1 mmol/ L 14-22 low Not Available [facility] (Lab) [address] [place], [address], 05/27/2025 12:00:48 05/27/2005/27/2025 COMPR EHENS FREDERIC METAB OLIC PANEL glucose 94 mg/dL 70-99 Not Available [facility] (Lab) [address] [place], [address], 05/27/2025 12:00:48 05/27/2005/27/2025 COMPR EHENS FREDERIC METAB OLIC PANEL BUN 19 mg/dL 8-19 Not Available [facility] (Lab) [address] [place], [address], 05/27/2025 12:00:48 05/27/2005/27/2025 COMPR EHENS FREDERIC METAB OLIC PANEL creatinine 1.01 mg/dL 0.66-1 .25 Not Available [facility] (Lab) [address] [place], [address], 05/27/2025 12:00:48 05/27/2005/27/2025 COMPR EHENS FREDERIC METAB OLIC PANEL GFR 54 Refer ence Range : [place] ge GFR Healt hy Adult : >60 [...] calcu lator is avail able on the [facility] websi te: https :[email or web address].[email or web address] [email or web address] tracee/pr ofess ional s/kdo qi/gf r_cal culat or Not Available [facility] (Lab) [address] [place], [address], 05/27/2025 12:00:48 05/27/2005/27/2025 COMPR EHENS FREDERIC METAB OLIC PANEL alkaline phosphatase 54 U/L 38-126 Not Available [facility] (Lab) [address] [place], [address], 05/27/2025 12:00:48 05/27/2005/27/2025 COMPR EHENS FREDERIC METAB OLIC PANEL alanine aminotransfe rase 46 U/L 0-35 high Not Available [facility] (Lab) [address] [place], [address], 05/27/2025 12:00:48 05/27/2005/27/2025 COMPR EHENS FREDERIC METAB OLIC PANEL aspartate aminotransfe rase 63 U/L 15-37 high Not Available [facility] (Lab) [address] [place], [address], 05/27/2025 12:00:48 05/27/20 25 05/27/2025 COMPR EHENS FREDERIC METAB OLIC PANEL bilirubin, total 1.20 mg/dL 0.20-1 .30 Not Available [facility] (Lab) [address] [place], [address], 05/27/2025 12:00:48 05/27/2005/27/2025 COMPR EHENS FREDERIC METAB OLIC PANEL calcium 9.9 mg/dL 8.4-10 .2 Not Available [facility] (Lab) [address] [place], [address], 05/27/2025 12:00:48 05/27/2005/27/2025 COMPR EHENS FREDERIC METAB OLIC PANEL total protein 6.5 g/dL 6.3-8. 2 Not Available [facility] (Lab) [address] [place], [address], 05/27/2025 12:00:48 05/27/2005/27/2025 COMPR EHENS FREDERIC METAB OLIC PANEL albumin 4.1 g/dL 3.0-4. 4 Not Available [facility] (Lab) [address] [place], [address], 05/27/2025 12:00:48 05/27/2005/27/2025 COMPR EHENS FREDERIC METAB OLIC PANEL globulin 2.4 g/dL 2.6-4. 2 low Not Available [facility] (Lab) [address] [place], [address], 05/27/2025 12:00:48 05/27/2005/27/2025 COMPR EHENS FREDERIC METAB OLIC PANEL A/G ratio 1.7 ratio 1.0-2. 0 Not Available [facility] (Lab) [address] [place], [address], 05/27/2025 12:00:48 05/27/2005/27/2025 LIPID PANEL cholesterol 186 mg/dL 140-19 9 NIH MILY NSUS RECOM MENDA TION FOR AUGUSTINA STERO L: ADULT CHILD LOW RISK: <200 <170 BORDE RLINE : <200- 239 ----- HIGH RISK: >240 >200 Not Available [facility] (Lab) [address] [place], [address], 05/27/2025 12:00:52 05/27/2005/27/2025 LIPID PANEL triglyceride s 76 mg/dL 0-150 NIH MILY NSUS REPOR T RECOM MENDA TION FOR TRIGL YCERI PILI: ADULT CHILD LOW RISK: <150 ----- BODER LINE: 150-1 99 ----- HIGH RISK: >200 ----- Not Available [facility] (Lab) [address] [place], [address], 05/27/2025 12:00:52 05/27/2005/27/2025 LIPID PANEL HDL cholesterol 75 mg/dL 40- Not Available [facility] (Lab) [address] [place], [address], 05/27/2025 12:00:52 05/27/2005/27/2025 LIPID PANEL LDL cholesterol, calculated 96 mg/dL 0-130 NIH MILY NSUS REPOR T [...] WILL NOT BE REPOR LORRAINE. Not Available [facility] (Lab) [address] [place], [address], 05/27/2025 12:00:52 05/27/2005/27/2025 T4 FREE free T4 0.97 NG/dL 0.78-2 .19 Not Available [facility] (Lab) [address] [place], [address], 05/27/2025 12:19:07 05/27/202025 VITAM IN D 25-HY DROXY [id number] 53.3 NG/mL 30-100 Vitam in D Statu s: Defic ient: <20 ng/mL Insuf ficie nt: 20-29 ng/mL Suffi cient : 30-10 0 ng/mL Not Available [facility] (Lab) [address] [place], [address], 05/27/2025 12:26:19 05/27/2005/27/2025 TSH thyroid-stim ulating hormone 3.640 uIU/m L 0.465- 4.680 Not Available [facility] (Lab) [address] [place], [address], 05/27/2025 12:37:22 05/27/2005/27/2025 HEMOG LOBIN A1C HA1C 5.3 % 4.0-6. 0 Diabe milena Scree alicia Crite madalyn: <5.7% Consi stent with absen ce of diabe milena 5.7-6 .4% Consi stent with incre ased risk for diabe milena (pred iabet es) >OR=6 .5% Consi stent with diabe milena REFER ENCE: Diabe milena Care 2016, 39(Drew ppl.1 ):s13 -s22 Not Available [facility] (Lab) [address] [place], [address], 05/27/2025 13:19:12 03/02/20 24 03/02/2024 DEXA, axial skele ton [facility] [address] [place], [place] [id number] Patien t Name: MARY NASCIMENTO ion #: [id number] Sex: F : 1954 5 Dictat ed By: Presley Alcazar ms Attend ing Physic jagdish: MARIANNE GRAVES CE Orderi Physic jagdish: MARIANNE GRAVES CE Exam Date: 2023 08:09 AM Exam Name: XR DEXA-H IPS PELVIS SPINE Admitt ing Diagno sis(es ): PROCED URE: DEXA SCAN INDICA TION: 68 years old, Female ; screen ing. Postme nopaus al female . TECHNI QUE: Bone densit ometry of the lumbar spine and bilate ral hips was perfor med on a [employer] c unit using dual energy x-ray absorp tiomet ry (DEXA) . COMPAR EMILY: None BONE DENSIT Y REPORT : The commercial leasing manager images are limite d for evalua tion [...] 10 YEAR FRACTU RE RISK* Page [address] [facility] [address] [facility] [address] [address] Patien t Name: MARY NASCIMENTO [facility] ion #: [id number] Sex: F : 1954 5 Dictat ed By: Presley Alcazar ms Attend ing Physic jagdish: BRIDGETTE MORALES [facility] Physic jagdish: MARIANNE GRAVES Exam Date: 2023 [...] treatm ent. T-scor e: compar emily by standa rd deviat ion (SD) to a young adult [...] at 2023 08:41: 16 AM Page 3 [facility] ([facility]) [address] [place], [address], 03/02/2024 09:52:49 03/02/20 24 03/02/2024 screabel vargas breas t joo, bilat [facility] [address] [facility] [place] [place] [address] Pat[place]aven [place] Name: MARY NASCIMENTO Access ion #: [id number] Sex: F : 1954 5 Dictat [...] at 2023 10:09: 29 AM Page [address] (Imaging) [address] [place], [address], 03/02/2024 14:14:10 09/02/20 24 09/02/2024 CT, brain , w/o contr ast No observ ation record ed. [address] [facility] [address], [place], [address], 09/03/2024 10:51:22 09/02/20 24 09/02/2024 XR, knee No observ ation record ed. [address], [place], [address], 09/03/2024 10:51:47 09/02/20 24 09/02/2024 XR, pelvi s No observ ation record ed. [place] [id number] [facility] [address], [place], [address], 09/03/2024 10:52:27 04/29/20 25 04/04/2025 scree alicia breas t joo, bilat [facility] [address] [address] Pat[place]aven t Name: MARY NASCIMENTO Access ion #: [id number] Sex: F : 1954 7 Dictat ed By: Eloisa Forde Attend ing Physic jagdish: MARIANNE GRAVES CE Orderi ng Physic jagdish: MARIANNE GRAVES CE Exam Date: 2024 07:43 AM Exam Name: MG SCRN BREAST JOO BILAT Admitt ing Diagno sis(es ): PROCED URE: SCREEN ING MAMMOG CARMELINA WITH TOMOSY NTHESI S REASON FOR EXAM: Screen ing COMPAR EMILY: MG SCRN BREAST JOO BILAT on DOS: 4 TECHNI QUE: Bilate ral CC and MLO views obtain ed. Images were obtain ed using a Digita l Tomosy nthesi s Unit. Standa rd 2D and 3D Tomosy nthesi s images were review ed. This examin ation was analyz ed using Lunit Insigh t DBT/MM G in additi on to a radiol ogist review , an AI softwa re develo ped to enhanc e the effect ivenes s of breast cancer screen ing with mammog letty. FINDIN GS: BREAST COMPOS ITION: A - The breast s are almost entire ly fatty. [...] JOSHUA: No findin gs of malign ruddy. RECOMM ENDATI ON: Recomm end annual mammog carmelina. ASSESS MENT: BIRADS : 1 - Negati ve Page 1 [facility] [address] Patien t Name: MARY NASCIMENTO Access ion #: [id number] Sex: F : 1954 7 Dictat ed By: Eloisa Forde Attend ing Physic jagdish: BRIDGETTE MORALES Physic jagdish: MARIANNE GRAVES Exam Date: 2024 07:43 AM Exam Name: MG SCRN BREAST JOO BILAT Admitt ing Diagno sis(es ): Electr onical ly Signed by: Eloisa Forde at 2024 11:40: 47 AM Page [address] (Imaging) [address] [place] [address], [facility], 04/29/2025 17:12:27 04/29/20 25 04/04/2025 scree alicia breas t joo, bilat [facility] [address] Patien t Name: MARY NASCIMENTO Access ion #: [id number] Sex: F : 1954 7 Dictat ed By: Eloisa Forde Attend ing Physic jagdish: MARIANNE GRAVES Physic jagdish: MARIANNE GRAVES Exam Date: 2024 07:43 AM Exam Name: MG SCRN BREAST JOO BILAT Admitt ing Diagno sis(es ): PROCED URE: SCREEN ING MAMMOG CARMELINA WITH TOMOSY NTHESI S REASON FOR EXAM: Screen ing COMPAR EMILY: MG SCRN BREAST JOO BILAT on DOS: 4 TECHNI QUE: Bilate ral CC and MLO views obtain ed. Images were obtain ed using a Digita l Tomosy nthesi s Unit. Standa rd 2D and 3D Tomosy nthesi s images were review ed. This examin ation was analyz ed using Lunit Insigh t DBT/MM G in additi on to a radiol ogist review , an AI softwa re develo ped to enhanc e the effect ivenes s of breast cancer screen ing with mammog letty. FINDIN GS: BREAST COMPOS ITION: A - The breast s are almost entire ly fatty. [...] JOSHUA: No findin gs of malign ruddy. RECOMM ENDATI ON: Recomm end annual mammog carmelina. ASSESS MENT: Page 1 [facility] [address] [place] [address] Patien t Name: MARY NASCIMENTO Access ion #: [id number] Sex: F : 1954 7 Dictat ed By: Eloisa Forde Attend ing Physic jagdish: BRIDGETTE MORALES Orderi Physic jagdish: MARIANNE GRAVES Exam Date: 2024 07:43 AM Exam Name: MG SCRN BREAST JOO BILAT Admitt ing Diagno sis(es ): BIRADS : 1 - Negati ve Electr onical ly Signed by: Eloisa Forde at 2024 11:40: 47 AM Page 2 [facility] (Imaging) [address] [place], [address], 04/30/2025 07:56:59 Result Notes Documentation Provider Name and Address Organization Details Recorded Time Dexa, Axial Skeleton : [facility] [address] [place] [address] Patient Name: MARY NASCIMENTO Sex: F : 1955 Dictated By: Jacquelyn Whitney Attending Physician: CANDI GRAVES Ordering Physician: CANDI GRAVES Exam Date: 03/02/2024 08:09 AM Exam Name: XR DEXA-HIPS PELVIS SPINE Admitting Diagnosis(es): PROCEDURE: DEXA SCAN INDICATION: 68 years old, Female; screening. Postmenopausal female. TECHNIQUE: Bone densitometry of the lumbar spine and bilateral hips was performed on a Hologic unit using dual energy x-ray absorptiometry (DEXA). COMPARISON: None BONE DENSITY REPORT: The commercial leasing manager images are limited for evaluation of fine bony detail. BONE DENSITY REPORT: Bone mineral density (BMD) AP SPINE (L1-L4) BMD: 1.301 (Grams/cm2). T Score: 0.9 Z-score: 1.3 LEFT FEMORAL NECK BMD: 0.950 (Grams/cm2). T Score: -0.6 Z-score: 0.2 LEFT HIP TOTAL BMD: 0.951 (Grams/cm2). T Score: -0.5 Z-score: 0.1 RT FEMORAL NECK BMD: 0.988 (Grams/cm2). T Score: -0.4 z-score: 0.5 RT HIP TOTAL BMD: 0.978 (Grams/cm2). T Score: -0.2 Z-score: 0.3 10 YEAR FRACTURE RISK* Page 1 [facility] [address] [place] [address] Patient Name: MARY NASCIMENTO Sex: F : 1955 Dictated By: Jacquelyn Whitney Attending Physician: BRIDGETTE CHRISTOPHER Ordering Physician: CANDI GRAVES Exam Date: 03/02/2024 08:09 AM Exam Name: XR DEXA-HIPS PELVIS SPINE Admitting Diagnosis(es): Major osteoporotic fracture not provided (less than 20% is considered low risk). Hip fracture not provided (less than 3% is considered low risk). IMPRESSION: 1. Using the World Health Organization (WHO) classification, bone mineral density is: Normal. --- *FRAX version 3.08. Fracture probability calculated for an untreated patient. Fracture probability may be lower if the patient has received treatment. T-score: comparison by standard deviation (SD) to a young adult population, matched for sex and ethnicity (used for postmenopausal women and men >50 years) and classified by WHO criteria. -1.0: normal <-1.0 to >-2.5: osteopenia -2.5: osteoporosis -2.5 plus fragility fracture: severe osteoporosis Z-score: compared by SD to an age, sex, and ethnicity population (used for premenopausal women, men <50 years, and children instead of T-score WHO criteria 4) <-2.0: below expected range/low bone density for age, and a cause should be sought. All treatment decisions require clinical judgment and consideration of individual patient factors, including patient preferences, comorbidities, previous drug use and risk factors not captured in the FRAX model (for example vitamin D deficiency, falls, frailty, increased bone turnover, interval significant decline in BMD). Page 3 Candi Graves MD [address] [place] [address], [id number], [facility] 03/02/2024 09:52:49 Problems Name Problem SNOMED Code Status Onset Date Resolution Date Notes Provider Name and Address Organization Details Recorded Time Nonvenomou s insect bite of trunk with infection 54136813 Active Not Available [facility] 3 06:14:21 Cellulitis and abscess of buttock 121098296 Active Not Available [facility] 3 06:14:21 Bite of nonvenomou s arthropod Active Not Available [facility] 3 06:14:21 Gastroesop hageal reflux disease 964585015 Active Not Available [facility] 3 06:14:21 Restless legs syndrome 85943663 Active Not Available [facility] 3 06:14:21 Depressive disorder 33960906 Active Not Available [facility] 3 06:14:21 Migraine 08234432 Active Not Available [facility] 3 06:14:21 Illness 87951670 Active Not Available [facility] 3 06:14:21 Vertigo 786319620 Active Not Available [facility] 3 06:14:21 Midline cystocele 587571868 Active Not Available [facility] 3 06:14:21 Atrophic vaginitis 51010943 Active Not Available [facility] 3 06:14:21 Female urinary stress incontinen ce 07582598 Active Not Available [facility] 3 06:14:21 Acute maxillary sinusitis 14381577 Active Not Available [facility] 3 06:14:21 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 Not Available [facility] 3 06:14:22 Edema of lower extremity 192132139 Active 2016 Not Available [facility] 3 06:14:20 Vitamin D deficiency 62784554 Active 2021 Candi Graves MD [address], [place], [address] , [employer] [facility] [employer] 5 15:08:06 Essential hypertensi on 51457358 Active 2021 Not Available [facility] 3 06:14:21 Senile osteoporos is 16702924 Active 2021 Not Available [facility] 3 06:14:21 Cervical radiculopa thy 70159831 Active 2022 Candi Graves MD [address], [place], [address] , [employer] [facility] [employer] [facility] 3 10:54:13 Obesity 830195378 Active 2022 Neris guy, [facility] [employer] [facility] 5 15:16:14 Rheumatoid arthritis 12535474 Active 2022 Candi Graves MD [address], [place], [address] , [facility] [employer] [facility] 3 10:59:42 Pain of right hip joint 1946562517792 02 Active 2024 Rhonda Landry CMA null, [facility] [employer] [facility] 5 14:18:41 Obese class III 339122392 Active 2024 Candi Graves MD [address], [address], [place], [address] , [facility] [employer] [facility] 5 15:11:31 Pain in left lower limb 291036701 Active 2024 Neris Barrow null, [facility] [employer] [facility] 5 15:18:38 Problem Notes None recorded. Procedures Surgical History Date Name Laterality Status Provider Name and Address Organization Details Recorded Time 07/05/20 24 Medicare Wellness CPT Code, subsequent completed Nedra Villaseñor RN [facility] [employer] [facility] 07/05/2024 14:38:53 06/25/20 23 Medicare Wellness CPT Code, subsequent completed Nedra Villaseñor RN [facility] [employer] [facility] 06/25/2023 10:49:04 09/01/20 18 Date of Last Colonoscopy completed Not Available [facility] 11/20/2022 06:10:38 Imaging Results None recorded. Procedure Notes None recorded. Medical Equipment None Reported. Allergies Allergen ID Allergen Name Allergen Category Reaction Reaction Severity Criticality Documentation Date Start Date Code Code System Note Provider Name and Address Organization Details Recorded Time 20551 Substance with sulfonami de structure and antibacte rial mechanism of action (substanc e) medicatio n other Not available Not available 11/20/2022 39250 8003 SNOMED facia l swell ing Not Available [facility] 3 06:18:43 Medications Name Sig Start Date Stop [...] 3 times a day by oral route. 11/16 completed Not Available Not Available Not Available prednisone 10 mg tablet 12/19 completed [...] Available ofloxacin 0.3 % eye drops INSTILL 3 DROPS IN THE LEFT EYE THREE TIMES DAILY FOR 7 DAYS active Not Available Not Available No t Available metoprolol tartrate 100 mg tablet TAKE 1 TABLET BY MOUTH TWICE DAILY active Not Available Not Available No t Available benzonatate 200 mg capsule Take 1 capsule 3 times a day by oral route. active Not Available Not Available No t Available Lotrisone 1 %-0.05 % topical cream Apply by topical route twice daily 09/17 completed Not Available Not Available Not Available hydrocodone 5 mg-acetamin ophen 325 mg tablet TAKE 1 TABLET BY MOUTH EVERY 6 TO 8 HOURS NEEDED FOR PAIN 11/16 completed Not Available Not Available Not Available fluticasone propionate 0.05 % topical cream active Not Available Not Available Not Available minocycline 100 mg capsule 06/20 completed Not Available Not Available Not Available meloxicam 15 mg tablet TAKE 1 TABLET BY MOUTH EVERY DAY BEFORE A MEAL 11/16 completed Not Available Not Available Not Available clonazepam 0.5 mg tablet 11/16 completed Not Available Not Available Not Available ropinirole 3 mg tablet Take 1 tablet 3 times a day by oral route. 10/04 completed Not Available Not Available Not Available betamethaso ne, augmented 0.05 % topical cream APPLY TOPICALLY TO THE AFFECTED AREA TWICE DAILY UNTIL GONE. RUB IN WELL. 14 DAY SUPPLY active Not Available Not Available No t Available doxycycline hyclate 50 mg capsule TAKE 1 CAPSULE BY MOUTH TWICE DAILY FOR 30 DAYS THEN 1 CAPSULE ONCE DAILY active Not Available Not Available No t Available prednisone 5 mg tablet TAKE 2 TABS DAILY X5 DAYS, 1 TAB DAILY X5 DAYS, THEN 1/2 TAB DAILY X5 DAYS 11/16 completed Not Available Not Available Not Available metronidazo le 250 mg tablet Take [...] e sodium 2.5 mg tablet TAKE 8 TABLETS BY MOUTH EVERY WEEK 11/16 completed Not Available Not Available Not Available gabapentin 800 mg tablet TAKE 1/2 TABLET EVERY NIGHT AT BEDTIME MAY INCREASE TO 1 EVERY NIGHT AT BEDTIME AFTER 1 WEEK. MAY INCREASE FURTHER UP TO 1/2 TO 1 THREE TIMES DAILY active Not Available Not Available No t Available Kenalog 10 mg/mL suspension for injection In office injection administe red by the provider 12/19 completed [facility]: 0003- 0494- 20 Not Available Not [...] OF 1 EVERY 2 WEEKS IF POSSIBLE 11/16 completed Not Available Not Available Not Available cephalexin 500 mg capsule 12/19 completed [...] tablet TAKE 1 TABLET BY MOUTH DAILY 11/16 completed Not Available Not Available Not Available hydroxyzine HCl 25 mg tablet TAKE 1 TABLET BY MOUTH EVERYDAY AT BEDTIME 06/25 completed Not Available Not Available Not Available allopurinol 300 mg tablet TAKE 1 TABLET BY MOUTH DAILY active Not Available Not Available No t Available hydrochloro thiazide 25 mg tablet TAKE 1 TABLET BY MOUTH TWICE DAILY 2024 active Not Available Not Available Not Avai [...] Not Available Not Available No t Available Bessemer 7.5 mg-325 mg tablet Take 1 tablet every 6 hours by oral route. 10/30 completed Not Available Not Available Not Available methylpredn isolone 4 mg tablets in a dose pack FOLLOW PACKAGE DIRECTION S active Not Available Not Available No t Available Cipro 250 mg tablet Take 1 tablet every 12 hours by oral route for 10 days. 09/17 completed Not Available Not Available Not Available ropinirole 5 mg tablet TAKE 1 TABLET BY MOUTH EVERY DAY AT BEDTIME 11/16 completed Not Available Not Available Not Available [...] TABLET BY MOUTH EVERY DAY AT BEDTIME 11/16 completed Not Available Not Available Not Available clindamycin phosphate 1 % topical solution 12/19 completed Not Available Not Available Not Available cyclobenzap rine 5 mg tablet 11/16 completed Not Available Not Available Not Available [...] administe red by the provider 12/19 completed [facility]: 0409- 4276- 17 Not Available Not [...] Not Available Not Available Not Available Fluvirin 5313-0687 45 mcg (15 mcg x 3)/0.5 mL intramuscul ar suspension ADM 0.5ML UTD active Not Available Not Available No t Available Fish Oil 1,000 mg (120 mg-180 mg) capsule Take by oral route. 2020 active Not Available Not Available Not Avai lable Rinvoq 15 mg tablet,exte nded release Take 1 tablet every day by oral route. active Not Available Not Available No t Available Vitals Date Recorded Body height Body mass index (BMI) Body weight Heart rate Body temperature Oxygen saturation Oxygen saturation in Arterial blood by Pulse oximetry Systolic And Diastolic Provider Name and Address Organization Details Last Updated DateTime 5 163.83 cm 40.2 kg/m2 422807. 98 g 76 /min 97 [degF] 98 % 98 % 122/64 mm[Hg] Carlyn [employer] [facility] [employer] 5 15:05:12 Date Recorded Body height Body mass index (BMI) Body weight Heart rate Body temperature Oxygen saturation Oxygen saturation in Arterial blood by Pulse oximetry Systolic And Diastolic Provider Name and Address Organization Details Last Updated DateTime 4 163.83 cm 39.5 kg/m2 853323. 61 g 75 /min 97 [degF] 98 % 98 % 122/78 mm[Hg] [facility] [employer] [facility] [employer] 4 10:38:51 Date Recorded Body height Body mass index (BMI) Body weight Heart rate Oxygen saturation Oxygen saturation in Arterial blood by Pulse oximetry Systolic And Diastolic Provider Name and Address Organization Details Last Updated DateTime 5 163.83 cm 40.1 kg/m2 859327. 39 g 64 /min 99 % 99 % 118/72 mm[Hg] Rhonda Landry [facility] [email or web address] [facility] [employer] [facility] 5 14:50:42 Date Recorded Body height Body mass index (BMI) Body weight Heart rate Oxygen saturation Oxygen saturation in Arterial blood by Pulse oximetry Systolic And Diastolic Provider Name and Address Organization Details Last Updated DateTime 3 163.83 cm 37.2 kg/m2 95814.3 2 g 54 /min 98 % 98 % 124/72 mm[Hg] Rhonda Landry [facility] [email or web address] [facility] [employer] [facility] 3 10:40:07 Date Recorded Pain severity - 0-10 verbal numeric rating [Score] - Reported Provider Name and Address Organization Details Last Updated DateTime 06/25/2023 0 Nedra Villaseñor RN [facility] [employer] [facility] 06/25/2023 10:49:19 Date Recorded Pain severity - 0-10 verbal numeric rating [Score] - Reported Provider Name and Address Organization Details Last Updated DateTime 07/05/2024 0 Nedra Villaseñor RN [facility] [employer] [facility] 07/05/2024 14:39:04 Date Recorded Body height Body mass index (BMI) Body weight Heart rate Body temperature Oxygen saturation Oxygen saturation in Arterial blood by Pulse oximetry Systolic And Diastolic Provider Name and Address Organization Details Last Updated DateTime 4 163.83 cm 40.1 kg/m2 666458. 39 g 81 /min 97 [degF] 98 % 98 % 120/72 mm[Hg] JENNY Roberts [facility] [employer] [facility] 4 14:33:09 Social History Question Answer Notes LastModified by Organizat ion Details LastModified Time Tobacco Smoking Status Never Smoker Not Available [facility] 11/20/2022 06:10:30 Do You Have An Advance Directive? Yes [id number] Information not available 11/20/2022 Are You Blind Or Do You Have Difficulty Seeing? No MIGRATION.83348 45152 Information not available 11/20/2022 In The 14 Days Before Symptom Onset, Have You Had Close Contact With A Laboratory-confir med COVID-19 While That Case Was Ill? No MIGRATION.70435 72657 Information not available 11/20/2022 In The 14 Days Before Symptom Onset, Have You Had Close Contact With A Person Who Is Under Investigation For COVID-19 While That Person Was Ill? No MIGRATION.50194 99036 Information not available 11/20/2022 Are You Deaf Or Do You Have Serious Difficulty Hearing? No MIGRATION.07365 80708 Information not available 11/20/2022 What Type Of Diet Are You Following? REGULAR MIGRATION.48925 99175 Information not available 11/20/2022 Have There Been Any Changes To Your Family Or Social Situation? No MIGRATION.45349 84156 Information not available 11/20/2022 What Is The Fluoride Status Of Your Home? Unknown MIGRATION.02039 43657 Information not available 11/20/2022 Are There Any Guns Present In Your Home? No MIGRATION.92011 96316 Information not available 11/20/2022 Do You Use Insect Repellent Routinely? No MIGRATION.98413 84749 Information not available 11/20/2022 Where Do You Live? [place]House MIGRATION.13687 13222 Information not available 11/20/2022 Guns Present In The Home? No [email or web address] Information not available 06/25/2023 Are You Able To Care For Yourself? Yes [email or web address] Information not available 06/25/2023 Are You Blind Or Do Yo Have Difficulty Seeing? No [email or web address] Information not available 06/25/2023 Are You Deaf Or Do You Have Serious Difficulty Hearing? No [email or web address] Information not available 06/25/2023 Live Alone Of With Others? Alone [email or web address] Information not available 06/25/2023 Do You Have A Medical Power Of Distribution Coordinator? Yes MIGRATION.23531 36293 Information not available 11/20/2022 What Was The Date Of Your Most Recent Tobacco Screening? 07/05/2024 [email or web address] Information not available 07/05/2024 Do You Have Any Pets? No MIGRATION.98539 77096 Information not available 11/20/2022 Do You Use Your Seat Belt Or Car Seat Routinely? Yes MIGRATION.84653 59051 Information not available 11/20/2022 Do You Have Smoke And Carbon Monoxide Detectors In Your Home? Yes MIGRATION.29236 71157 Information not available 11/20/2022 Are You Passively Exposed To Smoke? No MIGRATION.75441 19222 Information not available 11/20/2022 Are There Any Smokers In Your House? No MIGRATION.81329 69120 Information not available 11/20/2022 Do You Use Sunscreen Routinely? Yes MIGRATION.18282 92082 Information not available 11/20/2022 Have You Recently Traveled Abroad? No MIGRATION.45246 87743 Information not available 11/20/2022 Do You Have Difficulty Walking Or Climbing Stairs? Yes [email or web address] Information not available 07/05/2024 Do You Have Any Dietary Restrictions? No MIGRATION.74474 92934 Information not available 11/20/2022 Sex: Unknown Functional Status Question Answer Note LastModified by Organizat ion Details LastModified Time Do you or have you ever used any other forms of tobacco or nicotine? No MIGRATION.7272828 026 Information not available 11/20/2022 What is your level of alcohol consumption? Occasional MIGRATION.8431716 026 Information not available 11/20/2022 Do you have transportation difficulties? No MIGRATION.5133743 026 Information not available 11/20/2022 Are you able to walk independently without assistance or assistive devices? YESWOREST MIGRATION.8164434 026 Information not available 11/20/2022 Do you have difficulty doing errands alone? No MIGRATION.6277882 026 Information not available 11/20/2022 Are you able to care for yourself independently? Yes MIGRATION.2250478 026 Information not available 11/20/2022 Do you have difficulty dressing, bathing, grooming, or toileting? No MIGRATION.6417098 026 Information not available 11/20/2022 What is your exercise level? Occasional MIGRATION.4421050 026 Information not available 11/20/2022 Mental Status Question Answer Note LastModified by Organizat ion Details LastModified Time Do you have difficulty concentrating, remembering or making decisions? No MIGRATION.[id number] 6 Information not available 11/20/2022 Family History [...] DISEASE/DISORDER N HISTORY OF DRUG ABUSE N COPD N RADIATION / CHEMOTHERAPY N Other # 2 N BLOOD DISEASES N EAR OR HEARING PROBLEMS N MUMPS N SHINGLES N DEPRESSION (INCLUDING POST ) N BOWEL PROBLEMS N STROKE/TIA N ULCERS N BENIGN PROSTATIC [...] HAVE YOU BEEN HOSPITALIZED OR SEEN IN [facility] IN THE PAST YEAR ? N [...] e and Address Organization Details Recorded Time Influenza, split virus, trivalent, preservative 4 completed Not Available [facility] 05/17/2025 14:27:04 COVID-19, mRNA, LNP-S, PF, 100 mcg/0.5mL dose or 50 mcg/0.25mL dose 1 completed Not Available [facility] 05/17/2025 14:27:04 Influenza, high-dose, quadrivalent, PF 2 completed Not Available [facility] 05/17/2025 14:27:04 Influenza, high-dose, quadrivalent, PF 2 completed Not Available [facility] 05/17/2025 14:27:04 COVID-19, mRNA, LNP-S, bivalent, PF, 30 mcg/0.3 mL dose 2 completed Not Available [facility] 05/17/2025 14:27:04 COVID-19, mRNA, LNP-S, PF, keren-sucrose, 30 mcg/0.3 mL 3 completed Not Available [facility] 05/17/2025 14:27:04 Influenza, adjuvanted, quadrivalent, PF 3 completed Not Available [facility] 05/17/2025 14:27:04 Influenza, high-dose, trivalent, PF 4 completed Not Available [facility] 05/17/2025 14:27:04 COVID-19, mRNA, LNP-S, PF, keren-sucrose, 30 mcg/0.3 mL 4 completed Not Available [facility] 05/17/2025 14:27:04 SARS-COV-2 (COVID-19) vaccine, UNSPECIFIED 2 completed Not Available [facility] 11/20/2022 06:18:35 Influenza, split virus, trivalent, preservative 0 completed Not Available [facility] 11/20/2022 06:18:35 zoster, unspecified formulation 0 completed Not Available [facility] 11/20/2022 06:18:35 zoster, unspecified formulation 9 completed Not Available [facility] 11/20/2022 06:18:35 SARS-COV-2 (COVID-19) vaccine, UNSPECIFIED 1 completed Not Available [facility] 11/20/2022 06:18:36 SARS-COV-2 (COVID-19) vaccine, UNSPECIFIED 1 completed Not Available [facility] 11/20/2022 06:18:36 Pneumococcal conjugate PCV 13 0 completed Not Available [facility] 11/20/2022 06:18:36 Past Encounters Encounter ID Performer Location Encounter Start Date Encounter Closed Date Diagnosis/Indication Diagnosis SNOMED-CT Code Diagnosis ICD10 Code Diagnosis IMO Codes Diagnosis Note [id number] Candi Graves MD [facility] [address] [address] 12/13/2020 00:00:00 12/13/2020 12:07:18 [id number] Candi Graves MD [facility] [address] [address] 04/19/2021 00:00:00 04/19/2021 15:09:21 [id number] Candi Graves MD [facility] [address] [address] 06/20/2021 00:00:00 06/20/2021 11:39:03 [id number] Candi Graves MD [facility] [address] [address] 12/19/2021 00:00:00 12/19/2021 11:41:44 [id number] Candi Graves MD [facility] [address] [address] 06/19/2022 00:00:00 06/19/2022 10:57:04 [id number] Candi Graves MD [facility] Internal Med [facility] [address] [address] 12/18/2022 10:21:51 12/18/2022 17:48:39 Essential hypertension 11517810 I10 Rheumatoid arthritis 698 88353 M06.9 Restless l egs syndrome 96628458 G25.81 Cervical radiculopathy 64662498 M54.12 Obesity 869456513 E66.9 Vitamin D deficiency 347 51158 E55.9 [id number] Candi Graves MD [facility] Internal Med [facility] [address] [address] 06/25/2023 10:35:42 06/25/2023 11:11:21 Adult health examination 079607261 Z00.00 Screening for disorder 435623244 Z13.9 Gastroesop hageal reflux disease 610626988 K21.9 Essential hypertension 98406984 I10 Obese class II 176967853 1 17990 E66.9 Rheumatoid arthritis 698 96501 M06.9 Vitamin D deficiency 347 47555 E55.9 [id number] Candi Graves MD [facility] Internal Med [facility] [address] [address] 12/24/2023 10:33:09 12/24/2023 11:03:54 Essential hypertension 12053450 I10 Gastroesop hageal reflux disease 102463563 K21.9 Obese class II 497947245 1 10081 E66.9 Rheumatoid arthritis 698 01242 M06.9 [id number] Candi Graves MD [facility] Internal Med [address] [address] 07/05/2024 14:25:33 07/05/2024 14:59:41 Adult health examination 635903401 Z00.00 Screening for disorder 207152252 Z13.9 Essential hypertension 83197246 I10 Gastroesop hageal reflux disease 066715965 K21.9 Rheumatoid arthritis 698 88780 M06.9 Obesity 448241409 E66.9 Restless l egs syndrome 90718674 G25.81 [id number] Candi Graves MD [facility] Primary Care Susie keene [address] [facility] [address] [place] [address] 11/16/2024 14:31:37 11/16/2024 15:32:34 Essential hypertension 35960998 I10 Rheumatoid arthritis 698 56290 M06.9 Gastroesop hageal reflux disease 200586968 K21.9 Obese class III 63707704 5 E66.842 [id number] Candi Graves MD [facility] Internal Med [address] [facility] [address] [place] [address] 05/17/2025 14:25:24 05/17/2025 15:12:34 Essential hypertension 56112527 I10 Rheumatoid arthritis 698 74452 M06.9 Obese class III 69832591 5 E66.813 Vitamin D deficiency 347 65418 E55.9 [id number] Health Concerns Section Related Observation LastModified by Organization Detai ls LastModified Time None Recorded Concern Status LastModified by Organization Details LastModified Time None Recorded Advance Directives Directive Y: Payers Insurance Date Sequence Insurance Name Policy Number Policy Pham Covered Member ID Pham Member ID Guarantor Name 05/17/2025 1 [place] Mary Child Noud [id number] Mary Child Noud 05/17/2025 1 [employer] (MEDICARE SUPPLEMENT) Mary A Noud [id number] Mary A Noud 05/17/2025 1 [employer] (MEDICARE REPLACEMENT/ ADVANTAGE - PPO) [id number] Mary A Noud [id number] Mary Danyell Noud Notes Date Note Type Note Provider Name and Address Organization Details Recorded Time 3 text/html Patient Name: Mary Child GlenysDate Of Service: Friday ( 06.25.2023 ): 1955 [...] below. Physical activity status unchanged. Followed by Ham Facer: Yes. Tolerating medications well. Medications currently consistent [...] offered to be evaluated and instructed by hardening machine operator helper on weight loss diet.Medication List Reviewed and [...] List Reviewed 06/25/2023[facility] Facial SwellingVaccination and Rcjrcojeuunj8291-18 Covid Booster Bhqszl4771-61 Covid Bcgzygg6415-46 Prevnar 219259-12 Riuxlyqig3991-56 Sfismrxk6004-23 Pneumovax (high Iqgq1203-62 Tetanus BoosterSurgical HistoryLap Cholecystectomy, Vaginal Hysterectomy, AppendectomyPreventative Testing Confirmed by Our Clsewuf6302/28/2023 MAMMOGRAM ALBUMIN 4.0 G/DL07/12/2022 DEXA SCAN (NORMAL)09/04/2021 LETTER ZBFKYNPWPMJXE84/11/2018 COLONOSCOPY (5 YEARS) 3110/28/2015 CT THORAXSocial HistoryDoes not smoke or drink. 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 Physical activity status unchanged. Followed by Ham Facer: Yes. Tolerating medications well. Medications currently consistent [...] offered to be evaluated and instructed by hardening machine operator helper on weight loss diet. Active Medication ListPlaquenil [...] Reactions ReviewedSulfa Drugs Facial Swelling Vaccination and Lgvyqeoimxyn0422-82 Covid Booster Nfoonp8972-17 Covid Fuqvuqs9604-38 Prevnar 13 Ja5061-10 Tjuieifpx3904-13 Xarqpbxv6978-88 Zanbvcvth8644-54 Tetanus Booster Surgical Gkbskyq3365-89 Lap Mtikbzktaikqtjf8199-78 Vaginal Gncrcwwfuxsc3184-47 Appendectomy Preventative Urhmyel8709/12/2023 COLONOSCOPY ( 5 YEARS ) ALBUMIN 3.8 G/DL N002/28/2023 MAMMOGRAM 06/ DEXA SCAN (NORMAL)09/04/2021 XEEGONCTDCEJF69/06/2016 CT THORAX Social HistoryDoes not smoke or drink. 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 Physical activity status unchanged. Followed by Ham Facer: Yes. Tolerating medications well. Medications currently consistent of Methotrexate and Plaquenil. #4. Hx of obesity. Currently Class 3 Obesity MS > 40. Has tried numerous dietary support and supplements with no benefit. Instructed on the health consequences of the obese status particularly cancer - diabetes and heart disease. Discussed other modalities of weight loss no . Potential candidate for bariatric surgery: No. Wishes to be evaluated by Dietary: No and was offered to be evaluated and instructed by hardening machine operator helper on weight loss diet.#5. Restless leg syndrome [...] Afternoon, 3 Tab Qhs, Reduce 1 Tab K4mfjYlxpuqqwhyy 300 MG (TABLET - ORAL) Once DailyFish Oil Caps DailyMethotrexate 2.5 MG TABLET Four Tablets WeeklFolic Acid 1 MG TABLET One DailyPilocarpine 5 MG TABLET, FILM COATED TidMeloxicam 15 MG TABLET One DailyGabapentin 800 MG TABLET 1/2 Tab Qhs Adverse Drug Reactions ReviewedSulfa Drugs Facial Swelling Vaccination and Immunization( ) 2006-07 PNEUMOVAX(X) 2002-03 TETANUS BOOSTER( ) 2020-01 SHINGRIX( ) 2020-07 PREVNAR 13 GC(X) 2020-07 INFLUENZA( ) 2020-11 COVID MODERNA(X) 2021-09 COVID BOOSTER PFIZER Surgical Vdmhjwt6545-77 Lap Ilbrefwurkqleme9423-22 Vaginal Uxkubscklyvm3095-90 Appendectomy Preventative Testing( ) 05/12/2024 Albumin 3.7 G/DL( ) 03/02/2024 Mammogram 03/02/2026( ) 03/02/2024 DEXA Scan (Normal)( ) 02/11/2024 Optometry( ) 09/12/2023 Colonoscopy ( 5 Years ) 09/12/2028( ) 09/04/2021 Ophthalmology( ) 08/27/2016 CT Thorax Social HistoryDoes not smoke or drink. 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 Arm 120/64Pulse: Sitting 76 /min and RegularRespiratory Rate: 16Height 64.5 in or 1.6 mWeight 238 lb or 108.0 kgBMI 40.2Temperature: 97 F or 36.1 CPulse Oximetry: 98 [...] below. Physical activity status unchanged. Followed by Ham Facer: Yes. Tolerating medications well. Medications currently consistent of Plaquenil and Rinvoq. #3. Hx of esophageal reflux currently stable. Hx [...] no . Discussed use of H2 antagonists and the possibility of trying to reduce the frequency of the use of any PPI inhibitors and try H2 antagonists to see if symptoms can be controlled with lease intensive therapy since a number of complications are associated with chronic prolonged use of PPI inhibitors. #4. Hx of obesity. Currently Class 3 Obesity MS > 40. Has tried numerous dietary support and supplements with no benefit. Instructed on the health consequences of the obese status particularly cancer - diabetes and heart disease. Discussed other modalities of weight loss no . Potential candidate for bariatric surgery: No. Wishes to be evaluated by Dietary: No and was offered to be evaluated and instructed by hardening machine operator helper on weight loss diet. Active Medication ListPlaquenil [...] MG (TABLET - ORAL) One Twice A DayAllopurinol 300 MG (TABLET - ORAL) Once DailyFish Oil Caps DailyRinvoq 15 MG TABLET, EXTENDED RELEASE Once Daily Adverse Drug Reactions ReviewedSulfa Drugs Facial Swelling Vaccination and Immunization( ) 2006-07 PNEUMOVAX(X) 2002-03 TETANUS BOOSTER( ) 2020-01 SHINGRIX( ) 2020-07 PREVNAR 13 GC(X) 2020-07 INFLUENZA( ) 2020-11 COVID MODERNA(X) 2021-09 COVID BOOSTER PFIZER Surgical Lpscqbh4222-51 Lap Vagmioosjbogkjx4635-26 Vaginal Zloocgxapcoa0303-39 Appendectomy Preventative Testing( ) 09/10/2024 Optometry( ) 09/06/2024 Albumin 4.0 G/DL( ) 03/02/2024 Mammogram 03/02/2026( ) 03/02/2024 DEXA Scan (Normal)( ) 09/12/2023 Colonoscopy ( 5 Years ) 09/12/2028( ) 09/04/2021 Ophthalmology( ) 08/27/2016 CT Thorax Social HistoryDoes not smoke or drink. 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 Arm 118/72Pulse: Sitting 64 /min and RegularRespiratory Rate: 16Height 64.5 in or 1.6 mWeight 237 lb or 107.5 kgBMI 40.0Pulse Oximetry: 99 % at rest on no oxygen Chief Complaint: Addressed in HPI Problems or conditions discussed in the HPI were the only ones reviewed during the encounter.Only social and family history addressed in the HPI were reviewed during this encounter. Attendants(s) + NoneConstitutional and Systemic Symptoms:none Medication Reconciliation: from medication list. History of Present Illness #1. Essential Hypertension: Stage: Stage I Interval Neurological Complaints no headaches. No shortness of breath, orthopnea or cardiovascular [...] below. Physical activity status unchanged. Followed by Ham Facer: Yes. Tolerating medications well. Medications currently consistent of Plaquenil and Rinvoq. #3. Hx of obesity. Currently Class 3 Obesity MS > 40. Has tried numerous dietary support and supplements with no benefit. Instructed on the health consequences of the obese status particularly cancer - diabetes and heart disease. Discussed other modalities of weight loss GLP-1 medications that are used to treat diabetes . Potential candidate for bariatric surgery: No. Wishes to be evaluated by Dietary: No and was offered to be evaluated and instructed by hardening machine operator helper on weight loss diet. Active Medication ListPlaquenil [...] MG (TABLET - ORAL) One Twice A DayAllopurinol 300 MG (TABLET - ORAL) Once DailyFish Oil Caps DailyRinvoq 15 MG TABLET, EXTENDED RELEASE Once Daily Adverse Drug Reactions ReviewedSulfa Drugs Facial Swelling Vaccination and Immunization( ) 2005- PNEUMOVAX(X) 2001- TETANUS BOOSTER( ) 2019- SHINGRIX( ) 2020-07 PREVNAR 13 GC(X) 2020-07 INFLUENZA( ) 2020- COVID MODERNA(X) 2021-09 COVID BOOSTER PFIZERImmunizations and Vaccinations Discussed and Implemented if feasible In the Office. Else referred to pharmacies. Surgical Pqkirns5990-02 Lap Ecoopoexgowkfxh0026-76 Vaginal Xwyjoqllsqnj8820-95 Appendectomy Preventative Testing: (X) Due (?) Optional( ) 04/04/2025 Mammogram 04/04/2026( ) 02/24/2025 Ophthalmology( ) 09/10/2024 Optometry( ) 09/06/2024 Albumin 4.0 G/DL( ) 03/02/2024 DEXA Scan (Normal)( ) 09/12/2023 Colonoscopy ( 5 Years ) 09/12/2028( ) 08/27/2016 CT ThoraxPreventative Testing Discussed with Patient and Attendants Social HistoryDoes not smoke or drink. 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 HistoryMother 80 from complications of COPDFather 91 [place] prostateThree sisters all living and in good healthNo brothersMenarche 17 Menopause A0 TEST RESULT RANGE UNITSCOMPREHENSIVE METABOLIC PANEL Date: 09/06/2024SODIUM 132 137-145 MMOL/LPOTASSIUM 3.9 3.5-5.1 MMOL/LBUN 19 8-19 MG/DLCREATININE 1.12 0.66-1.25 MG/DLGFR 48ALKALINE PHOSPHATASE 89 38-126 U/LALANINE AMINOTRANSFERASE 42 0-35 U/LASPARTATE AMINOTRANSFERASE 63 15-37 U/LBILIRUBIN, TOTAL 0.80 0.20-1.30 MG/DL Candi Graves MD [address] [facility], [facility] [address], [place], [address], [place] [facility] [employer] 05/17/2025 15:08:50 OBGyn Episode No OBEpisode recorded.
--- OUTSIDE RECORDS SUMMARY | 2025-07-05 14:14 | XMS_ITS | Patient Health Record ---
Author Organization [facility] Address [address], [place] [id number] Care Team Providers Care Community Product Specialist Name Role Phone Jess Fisher Unavailable [phone] Laxmi Monroe Unavailable [phone] Allergies Allergen (clinical drug ingredient) Drug/Non Drug Allergy documented on EMR Reaction Allergy Type Onset Date Status Substance with sulfonamide structure and antibacterial mechanism of action (substance) Sulfa Antibiotics Unknown Drug Allergy Active Reason For Referral No Information Medications Medication SIG (Take, Route, Frequency, Duration) Notes Start Date End Date Status Furosemide 40 MG 1 tablet Orally Once a day Active Metoprolol Tartrate 100 MG 1 tablet with food Orally Twice a day Active Rinvoq 15 MG 1 tablet Orally Once a day; Duration: 90 days [facility] 11/22/2024 08/17/2025 Active Gabapentin 800 MG 1 tablet Orally Once a day Active hydroCHLOROthiazide 25 MG 1 tablet in th e morning Orally Once a day Active metroNIDAZOLE 1 % 1 application Externally Once a day Active Iron (Ferrous Sulfate) 325 (65 Fe) MG 1 tablet Orally Three times a Week Active Potassium Chloride ER 20 MEQ 1 tablet with food Orally Once a day Active Hydroxychloroquine Sulfate 200 MG as directed Orally Active Social History Tobacco Use: Social History Observation Description Date Details (start date - stop date) Never Smoker NA - NA Sex Assigned At : Social History Observation Description Sex Assigned At Unknown Tobacco Use/Smoking Question Answer Notes Tobacco use: nonsmoker Problems Problem Type SNOMED Code ICD Code Onset Dates Problem Status W/U Status Risk Notes Problem Rheumatoid arthritis (08884625) Rheumatoid arthritis, involving unspecified site, unspecified whether rheumatoid factor present (M06.9) Active confirmed Problem Inflammatory polyarthritis (407670141) Inflammatory polyarthritis (M06.4) Active confirmed Problem Connective tissue disease (829077748) Connective tissue disease (M35.9) Active confirmed Problem Sjogrens syndrome (74528399) Sjogrens syndrome (M35.00) Active confirmed Problem Rheumatoid arthritis (66791372) Rheumatoid arthritis (M06.9) Active confirmed Vital Signs Height-cm 160.02 cm 11/19/2024 Weight-kg 104.33 kg 11/19/2024 Height 63 in 11/19/2024 Weight 230 lbs 11/19/2024 BMI 40.74 kg/m2 11/19/2024 Encounters Encounter Location Date Provider Diagnosis [address] [place] [address] Rd [address] [place], [place] [id number] 11/19/2024 Laxmi Espurvoa Rheumatoid arthritis, involving unspecified site, unspecified whether rheumatoid factor present M06.9 ; Other senior living (current) drug therapy Z79.899 and Routine health maintenance Z00.00 [address] [place] [address] [place], [place] [id number] 03/01/2025 Jess Fisher Rheumatoid arthritis, involving unspecified site, unspecified whether rheumatoid factor present M06.9 [id number] [facility] [address] [place], [place] [id number] 05/19/2025 Laxmi Espurvoa Rheumatoid arthritis, involving unspecified site, unspecified whether rheumatoid factor present M06.9 Assessments Encounter Date Diagnosis (ICD Code) Assessment Notes Treatment Notes Treatment Clinical Notes Section Notes 11/19/2024 Rheumatoid arthritis, involving unspecified site, unspecified whether rheumatoid factor present (ICD-10 - M06.9) Ms. Veronica is a 69-year-old female with rheumatoid arthritis, currently managed by Dr. Scanlon. At this time, patient will begin Rinvoq. Patient will be monitored senior living for symptom control and side effects. SCREENING: CDAI: 10 LABS: QuantiFERON-TB Gold (08/02/2024): Negative Hepatitis B Surface Antigen (08/02/2024): NR Rheumatoid arthritis is chronic in nature with periods of remission and flares. Flares can be triggered by stress, infections, certain medications, and alcohol. Rinvoq risks include myelosuppression, immunosuppression autoimmune hepatitis, demyelinating disease, lymphoma, and serious infections. Patient to call the office with any concerns or infections. 03/01/2025 Rheumatoid arthritis, involving unspecified site, unspecified whether rheumatoid factor present (ICD-10 - M06.9) 05/19/2025 Rheumatoid arthritis, involving unspecified site, unspecified whether rheumatoid factor present (ICD-10 - M06.9) 11/19/2024 Other senior living (current) drug therapy (ICD-10 - Z79.899) When on high-risk medications, patient must be vigilant about any new symptoms and understand the risks and side effects of their treatment. Biologic/small molecule medications can have significant side effects that may require blood test monitoring on a regular basis. Patient to contact providers for fever, chills, night sweats, malaise, abdominal pain, weakness, fatigue, headaches, infections, difficulty breathing or persistent cough, new skin lesions, or other unusual symptoms. 11/19/2024 Routine health maintenance (ICD-10 - Z00.00) https://www.cdc.gov/v accines/schedules/jovani nloads/adult/adult-co mbined-schedule.pdf Plan Of Treatment No Information Medical (General) History Medical History History ICD Code Connective tissue disease M35.9 Sjogrens syndrome M35.00 Inflammatory polyarthritis M06.4 Rheumatoid arthritis M06.9 Hospitalization History Reason Date(Month/Year) ER visit x 2 due to falls 08/2024
[2025-07-05 18:18] LABS: Ferritin 330.00 ng/mL (11.1-264)
== END 2025-07-05 12:39 | disposition home or self-care (01) ==
LOC: ANHGOSHLAB 12:39
PROVIDERS: PCP Internal Medicine; Visit Provider Internal Medicine Critical Care Medicine
DX: D64.9 Anemia, unspecified (principal)
CPT/HCPCS: 36415; 82728